=== PATIENT | female | born 1960 | race Caucasian/White ===

== ENCOUNTER 2020-01-12 06:51 | Emergency (ER) | payer MEDICARE, OTHER ==
[~2020-01-12] VITALS: Ht 160 cm; Wt 54.0 kg
--- OUTSIDE RECORDS SUMMARY | ~2020-01-12 | XMS | Encounter Summary ---
Demographics + + + | Address | [address] | | | [place] [address] | + + + | Home Phone | | + + + | Preferred Language | Unknown | + + + | Marital Status | | + + + | Sabianism Affiliation | Unknown | + + + | Race | Unknown | + + + | Ethnic Group | Unknown | + + + Author + + + | Author | [facility] | | | and [place] | + + + | Organization | [facility] | | | and [place] | + + + | Address | Unknown | + + + | Phone | Unavailable | + + + Support + + +---------+ + | Name | Relationship | Address | Phone | + + +---------+ + | Amor Sánchez | ECON | Unknown | | + + +---------+ + Care Team Providers + +------+ + | Care Operations Supervisor Chemical Cleaning Name | Role | Phone | + +------+ + | Bethany Donato | PCP | | + +------+ + Reason for Visit + +--------+ + | Reason | Onset | Comments | | | Date | | + +--------+ + | Imaging Only | 01/01/ | | | | 2016 | | + +--------+ + Encounter Details +--------+ + + + + | Date | Type | Department | Care Team | Description | +--------+ + + + + | 01/01/ | Telephone | [facility] | Anjum Carter, | Imaging Only | | 2017 | | NEUROSURGERY [address] | DO [address] | | | | | [address] | [address] [place], [place] | | | | | [place], [place] | [address] | | | | | [address] | | | | | | [phone] | | | +--------+ + + + + Social History + + + +--------+ + | Tobacco Use | Types | Packs/Day | Years | Date | | | | | Used | | + + + +--------+ + | Former Smoker | Cigarettes | | 4 | Quit: 08/16/2014 | + + + +--------+ + + +---+---+---+ | Smokeless Tobacco: | | | | | Never Used | | | | + +---+---+---+ + + +---------+ + | Alcohol Use | Drinks/Week | oz/Week | Comments | + + +---------+ + | Yes | 0 Standard drinks | 0.0 | RARE | | | or equivalent | | | + + +---------+ + + + + | Sex Assigned at | Date Recorded | | | | + + + | Not on file | | + + + documented as of this encounter Functional Status + + + + | Functional Status | Response | Date of Assessment | + + + + | Are you deaf or do you have serious | No | 06/25/2016 | | difficulty hearing? | | | + + + + | Are you blind or do you have serious | No | 06/25/2016 | | difficulty seeing, even when wearing | | | | glasses? | | | + + + + | Do you have serious difficulty walking or | No | 06/25/2016 | | climbing stairs? (5 years old or older) | | | + + + + | Do you have difficulty dressing or bathing? | No | 06/25/2016 | | (5 years old or older) | | | + + + + | Because of a physical, mental, or emotional | No | 06/25/2016 | | condition, do you have difficulty doing | | | | errands alone such as visiting a doctor's | | | | office or shopping? [15 years old or | | | | older)] | | | + + + + + + + + | Cognitive Status | Response | Date of Assessment | + + + + | Because of a physical, mental, or emotional | No | 06/25/2016 | | condition, do you have serious difficulty | | | | concentrating, remembering, or making | | | | decisions? (5 years old or older) | | | + + + + documented as of this encounter Miscellaneous Notes Telephone Encounter - Albarado, Sangeetha S, Telephone Information Clerk - 01/20/2017 4:05 PM PDTLetter benz s been mailed to patient to remind her to complete her 6 month post-op xray. elephone Encounter - Sangeetha Albarado Medical Assistant - 01/04/2017 2:50 PM PDTCalled patient and unable to sylvester ve voicemail due to no voicemail box set up yet. elephone Encounter - Gerardo Leary Medical Assis tananne - 01/01/2017 1:07 PM PDTPatient was unable to answer phone call, her voicemail has not been set up. I was unable to leave a message to let her know to get her 6m PO x-rays comple maegan. Will route order to [place] elephone Encounter - Gerardo Leary Medical Assistant - 2016 1:06 PM PDT----- Message from Aubrie Chappell MA sent at 09/28/2016 11:05 PDT ----- Regarding: Emma KELLER Remind patient to complete 6 month PO XR for review documen maegan in this encounter Plan of Treatment Not on filedocumented as of this encounter Visit Diagnoses Not on filedocumented in this encounter"
--- OUTSIDE RECORDS SUMMARY | ~2020-01-12 | XMS | Encounter Summary ---
Demographics + + + | Address | [address] | | | [place] [address] | + + + | Home Phone | | + + + | Preferred Language | Unknown | + + + | Marital Status | | + + + | Spiritism Affiliation | Unknown | + + + | Race | Unknown | + + + | Ethnic Group | Unknown | + + + Author + + + | Author | [facility] | | | and [place] | + + + | Organization | [facility] | | | and [place] | [...] Team Providers + +------+ + | Care Pulverizer Name | Role | Phone | + +------+ + | Bethany Donato | PCP | | + +------+ + Reason for Visit +--------+--------+ + | Reason | Onset | Comments | | | Date | | +--------+--------+ + | Other | 07/15/ | | | | 2017 | | +--------+--------+ + Encounter Details +--------+ + + + + | Date | Type | Department | Care Team | Description | +--------+ + + + + | 07/15/ | Telephone | [facility] | Todd Montanez, | Other | | 2016 | | NEUR[address]UR[address]ERY [address] | PA-C [address] | | | | [address] | [address] [place] | | | | | [place], [place] | [place] [address] | | | | | [address] | [phone] | | | | | [phone] | | | +--------+ + + + [...] this encounter Miscellaneous Notes Telephone Encounter - Todd Montanez PA - 07/22/2016 2:03 PM Stevo. i will look at [facility] and let her know. Thanks. 2: 04 PM PSTTelephone Encounter - Viktoriya Leal Cert MA - 07/22/2016 10:52 AM PSTI called and spoke with Yovany about the Gabapentin. She feels that taking 300mg TID is helping. She only has two pills let and would like a refill sent to her pharmacy. I attached this Rx. Please approve/deny I did also request her MRI and XR be pushed from [facility] to [facility]. Please review and advise. Her next visit is on 07/28/16. Thank you VIKTORIYA LEAL elephone EncounViktoriya Mora Cert MA - 07/21/2016 11:53 AM PSTVM left for Yovany requesting a call back to discuss Gabapentin with her. VIKTORIYA LEAL elephone Todd Reyna PA - 07/20/2016 2:58 PM PSTGreat. Thanks. All I can say is keep tryi ng a couple times a day and record when attempts are made. elephone Aixa - Viktoriya Lael Cert MA - 017 8:12 AM PSTVM left again today for Yovany. Requested a call back FYI - patient has not returned any of my calls and has not been able to be reached elephone EncounViktoriya Mora Cert MA - 07/17/2016 9:57 AM PSTMRI and XR scheduled for 07/20/16 at [facility] checking in at 245pm with 3pm. VM left for Yovany and Amor on both numbers requesting a call back CARLEY. VIKTORIYA LEAL elephone Viktoriya Abraham Cert MA - 07/15/2016 3:07 PM PSTVm left for Yovany requesting a call back VIKTORIYA LEAL elephone Viktoriya Abraham Cert MA - 07/15/2016 3:07 PM PST----- Message from JOCELINE Knott sent at 07/15/2016 10:43 PST ----- I ordered a plain x-ray today that was not discussed during her visit so please call and le t her know about this. Also I ordered a MRI that I that I would like tone urgently. Hopefull y by Wednesday. She can have her back x-rays done at the same time. Lastly, I did not get a vik nce to discuss this with her, but please tell her I called the pharmacy while she was here a nd verified that the Neurontin (gabapentin) I put her on IS THE MEDICATION SHE HAD TAKEN BEF ORE. I started her on the same dose as she was on before and it is very likely that this anthony l be an effective dose. By Wednesday, if her pain is not tolerable level she can increase her Neurontin to 2 tablets which would be 600 mg TID. If she does this, please have her call ou r office so that we know she is taking 600 mg 3 times a day. documented in this encounter Plan of Treatment Not on filedocumented as of this encounter Visit Diagnoses Not on filedocumented in this encounter"
--- OUTSIDE RECORDS SUMMARY | ~2020-01-12 | XMS | Encounter Summary ---
Demographics + + + | Address | [address] | | | [place] [address] | + + + | Home Phone | | + + + | Preferred Language | Unknown | + + + | Marital Status | | + + + | Temple Affiliation | Unknown | + + + | Race | Unknown | + + + | Ethnic Group | Unknown | + + + Author + + + | Author | [facility] | | | and [place] | + + + | Organization | [facility] | | | and [place] | [...] Team Providers + +------+ + | Care Business Machine Mechanic Name | Role | Phone | + +------+ + PCP | Unavailable | + +------+ + Encounter Details +--------+ + + + + | Date | Type | Department | Care Team | Description | +--------+ + + + + | 11/07/ | Hospital | [facility] | | | | 1991 | Encounter | [facility] | | | | | | CENTER [address] | | | | | | [place] | | | | | | [address] | | | | | | [phone] | | | +--------+ + + + + Social History + +-------+ +--------+------+ | Tobacco Use | Types | Packs/Day | Years | Date | | | | | Used | | + +-------+ +--------+------+ | Never Assessed | | | | | + +-------+ +--------+------+ + + + | Sex Assigned at | Date Recorded | | | | + + + | Not on file | | + + + documented as of this encounter Plan of Treatment Not on filedocumented as of this encounter Visit Diagnoses Not on filedocumented in this encounter"
--- OUTSIDE RECORDS SUMMARY | ~2020-01-12 | XMS | Encounter Summary ---
Demographics + + + | Address | [address] | | | [place] [address] | + + + | Home Phone | | + + + | Preferred Language | Unknown | + + + | Marital Status | | + + + | Orthodox Affiliation | Unknown | + + + | Race | Unknown | + + + | Ethnic Group | Unknown | + + + Author + + + | Author | [facility] | | | and [place] | + + + | Organization | [facility] | | | and [place] | [...] Team Providers + +------+ + | Care Community Development Technician Name | Role | Phone | + +------+ + PCP | Unavailable | + +------+ + Encounter Details +--------+ + + + + | Date | Type | Department | Care Team | Description | +--------+ + + + + | 11/03/ | Hospital | [facility] | | | | 1993 | Encounter | [facility] EM[facility] | | | | | | CENTER [address] | | | | | | [place] | | | | | | [address] | | | | | | [phone] | | | +--------+ + + + [...]
--- OUTSIDE RECORDS SUMMARY | ~2020-01-12 | XMS | Encounter Summary ---
Demographics + + + | Address | [address] | | | [place] [address] | + + + | Home Phone | | + + + | Preferred Language | Unknown | + + + | Marital Status | | + + + | Hoahaoism Affiliation | Unknown | + + + | Race | Unknown | + + + | Ethnic Group | Unknown | + + + Author + + + | Author | [facility] | | | and [place] | + + + | Organization | [facility] | | | and [place] [...] Team Providers + +------+ + | Care Freight Coordinator Name | Role | Phone | + +------+ + PCP | Unavailable | + +------+ + Encounter Details +--------+ + + + + | Date | Type | Department | Care Team | Description | +--------+ + + + + | 02/17/ | Hospital | [facility] | | | | 1994 | Encounter | MED CTR EMERGENCY | | | | | | [place] [address] | | | | | | [place] | | | | | | [address] | | | | | | [phone] | | | +--------+ + + + [...]
--- OUTSIDE RECORDS SUMMARY | ~2020-01-12 | XMS | Encounter Summary ---
Demographics + + + | Address | [address] | | | [place] [address] | + + + | Home Phone | | + + + | Preferred Language | Unknown | + + + | Marital Status | | + + + | Druze Affiliation | Unknown | + + + | Race | Unknown | + + + | Ethnic Group | Unknown | + + + Author + + + | Author | [facility] | | | and [place] | + + + | Organization | [facility] | | | and [place] [...] Team Providers + +------+ + | Care Um Specialist Name | Role | Phone | + +------+ + | Bethany Donato | PCP | | + +------+ + Reason for Visit Auth/Cert +--------+--------+ + + + + | Status | Reason | Specialty | Diagnoses / | Referred By | Referred To | | | | | Procedures | Contact | Contact | +--------+--------+ + + + + | | | | Diagnoses | | | | | | | Scoliosis, | | | | | | | unspecified | | | | | | | scoliosis | | | | | | | type, | | | | | | | unspecified | | | | | | | spinal | | | | | | | region | | | | | | | Scoliosis, | | | | | | | unspecified | | | | | | | scoliosis | | | | | | | type, | | | | | | | unspecified | | | | | | | spinal | | | | | | | region | | | | | | | [M41.9] | | | | | | | Procedures | | | | | | | FL | | | | | | | ARTHRODESIS | | | | | | | POSTERIOR/PO | | | | | | | STEROLATERAL | | | | | | | LUMBAR | | | | | | | FUSION | | | | | | | LUMBAR W/ | | | | | | | LATERAL | | | | | | | APPROACH | | | | | | | (XLIF) | | | +--------+--------+ + + + + Encounter Details +--------+ + + + + | Date | Type | Department | Care Team | Description | +--------+ + + + + | 06/23/ | Anesthesia | [facility] | Chas Cruz | | | 2016 | Event | [facility] | MD Kavya [address] | | | | | [address] | [address] [place] | | | | | [place] | [address] | | | | | [address] | | | | | | [phone] | | | | | | | Nabeel Mireles, | | | | | | [address] | | | | | | [place], [place] | | | | | | [address] | | | | | | | | +--------+ + + + + Anesthesia Record + + + + + | Procedure Name | Responsible | Anesthesia Start | Anesthesia Stop Time | | | Anesthesiologist | Time | | + + + + + | L2-3, L3-4, L4-5 | Chas Cruz, | 06/23/16 1308 | 06/23/16 1708 | | Lateral Anterior | MD | | | | Interbody Fusion | | | | | (Right Spine Lumbar) | | | | + + + + + +----+---+ + + | Da | T | Event | Comment | | te | i | | | | | m | | | | | e | | | +----+---+ + + | 12 | 1 | | | | /2 | 2 | | | | 0/ | 4 | | | | 20 | 8 | | | | 16 | | | | +----+---+ + + | | 1 | An Checkout | Pre-use anesthesia machine/equipment checkout. | | | 2 | | | | | 4 | | | | | 8 | | | +----+---+ + + | | 1 | Antibiotic | | | | 3 | Given | | | | 0 | | | | | 6 | | | +----+---+ + + | | 1 | An Start | Versed 2 mg IV in SDS 16, then to OR 2 with sedated patient. | | | 3 | | Reassessment prior to anesthesia induction/procedure. | | | 0 | | | | | 8 | | | +----+---+ + + | | 1 | an efrem now | In room 2 with sedated patient | | | 3 | | | | | 1 | | | | | 1 | | | +----+---+ + + | | 1 | Preoxygenat | | | | 3 | ed | | | | 1 | | | | | 4 | | | +----+---+ + + | | 1 | An | | | | 3 | Induction | | | | 1 | | | | | 8 | | | +----+---+ + + | | 1 | An | | | | 3 | Intubation | | | | 1 | | | | | 8 | | | +----+---+ + + | | 1 | AN Bite | | | | 3 | Block | | | | 1 | | | | | 8 | | | +----+---+ + + | | 1 | First | | | | 3 | Inc/Proc St | | | | 3 | | | | | 8 | | | +----+---+ + + | | 1 | [place] | | | | 3 | 43-degrees | | | | 3 | | | | | 8 | | | +----+---+ + + | | 1 | an efrem now | T Anthony, Relief | | | 5 | | | | | 0 | | | | | 7 | | | +----+---+ + + | | 1 | Quick Note | CT scan | | | 5 | | | | | 1 | | | | | 3 | | | +----+---+ + + | | 1 | an efrem now | Supine | | | 6 | | | | | 5 | | | | | 7 | | | +----+---+ + + | | 1 | AN No | TOF 4/4 with sustained tetanus. | | | 7 | Residual | | | | 0 | NMB | | | | 0 | | | +----+---+ + + | | 1 | Oropharynx | | | | 7 | Suctioned | | | | 0 | | | | | 0 | | | +----+---+ + + | | 1 | Extubated | | | | 7 | Deep | | | | 0 | | | | | 1 | | | +----+---+ + + | | 1 | an efrem now | PACU | | | 7 | | | | | 0 | | | | | 3 | | | +----+---+ + + | | 1 | An Stop | Patient handed off to recovery nurse. | | | 0 | | | | | 8 | | | +----+---+ + + +------+ | Meds | +------+ + + + | Name | Total | + + + | midazolam | 2 mg | + + + | lidocaine 2% (PF) | 60 mg | + + + | dexamethasone | 10 mg | + + + | ondansetron | 4 mg | + + + | HYDROmorphone | 2 mg | + + + | dexmedetomidine (PRECEDEX) 4 | 100 mcg | | mcg/mL in sodium chloride 0.9% | | | 100 mL infusion | | + + + | magnesium sulfate | 2 g | + + + | propofol | 150 mg | + + + | succinylcholine | 60 mg | + + + | ceFAZolin (ANCEF, KEFZOL) 2 g in | 2 g | | sodium chloride 0.9% 50 mL IVPB | | + + + | ketamine | 100 mg | + + + | morphine | 5 mg | + + + | lactated ringers (LR) infusion | 1,500 mL | + + + + + | Name | + + | N2O Flow Rate (L/Min) | + + | O2 Flow Rate (L/Min) | + + | Insp O2 | + + | Exp SEV | + + | Air Flow Rate (L/Min) | + + + + | No blood administrations on file. | + + +--------+ + + + | Type | Details | Placement | Removal | +--------+ + + + | Periph | 06/23/16; (present on arrival to | 06/23/16 0000 by | 06/25/16 1300 by | | eral | PACU); Left; Wrist; short term | Yefri Madrid RN | Michel Woodall RN | | IV | use; 06/25/16; 1300 | | | +--------+ + + + | Airway | Placement Date: 06/23/16; | 06/23/16 1318 by | 06/23/16 1701 by | | | Placement Time: 1318; Mask | Nabeel Mireles, | Chas Cruz, | | | Ventilation: EZ; Airway Grade: | MD | MD | | | 2a; External Maneuvers: CP; | | | | | Successful Technique: Mac; | | | | | Laryngoscope Blade Size: 3; | | | | | Airway Type: endotracheal, oral, | | | | | cuffed, fenestrated, disposable; | | | | | Size: 6.5; Position: Right; | | | | | Airway Tube Secured At: 21; Tube | | | | | Reference Point: teeth, secure | | | | | and patent; Trauma: none; Other | | | | | Equipment: stylette; Placement | | | | | Check: breath sounds equal | | | | | bilaterally, bilateral chest | | | | | rise, exhaled CO2 detection | | | | | device; Removal Date: 06/23/16; | | | | | Removal Time: 1701 | | | +--------+ + + + | Urethr | 06/23/16; 1330; indicated due to | 06/23/16 1330 by | 06/23/16 1700 by | | al | specific surgical procedure; All | Neno Trinh RN | Zara Hyde, | | Cathet | elements; All elements; All | | RN | | er | elements; indwelling double lumen | | | | | catheter; latex; 14; None; 1; | | | | | 10; 10; other (see comments) | | | | | (anesthesia); drainage bag to | | | | | dependent drainage; 06/23/16; | | | | | 1700 | | | +--------+ + + + | Read | 06/23/16; 1357; Right; flank; | 06/23/16 1357 by | 06/25/16 1300 by | | only - | healing within expectations; | Neno Trinh RN | Michel Woodall RN | | | 06/25/16; 1300 | | | | Incisi | | | | | on | | | | +--------+ + + + | Read | 06/23/16; 1620; back; healing | 06/23/16 1620 by | 06/25/16 1300 by | | only - | within expectations; 06/25/16; | Deborah Donato RN | Michel Woodall RN | | | 1300 | | | | Incisi | | | | | on | | | | +--------+ + + + | Drain/ | 06/23/16; 1643; lumbar spine; | 06/23/16 1643 by | 06/25/16 1306 by | | Device | collapsible closed device; 10f; | Deborah Donato RN | Michel Woodall RN | | Site | short term use; 06/25/16; 1306 | | | +--------+ + + + documented in this encounter Social History + + + +--------+ + [...] + + documented as of this encounter OR Notes Anesthesia Postprocedure Evaluation - Chas Cruz MD - 06/23/2016 5:20 PM PSTForm atting of this note might be different from the original. ANESTHESIA POSTANESTHESIA EVALUATION Yovany Jackson 55 y.o. female 1960 [id number] Procedure(s) L2-3, L3-4, L4-5 Lateral Anterior Interbody Fusion (Right Spine Lumbar) Cooperates? Sleeping Mental Status Sleeping - responds to stimulus Respiratory Satisfactory - Airway patent (self maintained). Cardiovascular Satisfactory Blood pressure and heart rate acceptable Temperature Satisfactory Pain Satisfactory N/V Control Satisfactory Hydration Satisfactory No signs of dehydration Complications None apparent Filed Vitals: 06/23/16 1704 06/23/16 1705 06/23/16 1710 BP: 142/70 145/72 142/70 Pulse: 73 73 78 Temp: 36.2 C (97.2 F) Resp: 13 15 15 SpO2: 97% 98% 94% Electronically signed by Chas Cruz MD 06/23/2016 17:20 [facility] nesthesia Prepro cedure Evaluation - Nabeel Mireles MD - 06/22/2016 8:10 PM PST ANESTHESIA PREANESTHESIA EVALUATION Yovany Jackson 55 y.o. female 1960 [id number] Procedure(s): L2-3, L3-4, L4-5 Lateral Anterior Interbody Fusion (N/A ) Medical history, anesthesia, medications, allergy, NPO status verified histories reviewed. Labs reviewed. Review of Systems / Med History Anesthesia History No anesthesia complications. Cardiovascular (-) congenital heart disease, pulmonary hypertension (-) valvular disease , Exercise maryan ance <4 METS Pulmonary Negative except where noted below. 20 pk year, quit 2014. (+) smoking history(-) asthma, COPD Neurology (+) scoliosis, back pain Psychology Negative except where noted below. (-) substance abuse, developmental delays Renal Negative except where noted below. Gastrointestinal/Hepatic Negative except where noted below. (+) hepatitis: type C Endocrine Negative except where noted below. Other Negative except where noted below. (+) arthritis Cancer Negative except where noted below. Physical Exam Airway MP II, TM >3 FB, Mouth opening >2 FB. Neck: full ROM, extends >30 degrees. Jaw protrus ion normal. Dental Grossly normal except where noted below.; (+) Age appropriate dentition. CV Rhythm regular. Rate Normal. (-) murmur, carotid bruit, peripheral edema, JVD and weak pulses. Pulm Clear to auscultation bilaterally. (-) wheezing, rhonchi, decreased breath sounds, rales and stridor. Neuro Grossly normal. Anesthesia Plan ASA 2 Type: General. Induction: Intravenous. Potential problems: None anticipated. Monitors: Standard ASA monitors. Consent statement:Anesthetic plan, alternatives, risks and benefits discussed with patient and family. Risks discussed included (but were not limited to): dental injury, pain, sore throat, infec tion, voice injury, muscle aches, nausea, respiratory events, . Consenting person understands and agrees to proceed. PARQ. Risks and benefits of general anesthetic discussed with patient and available family member s. They agree to proceed, answered all questions.. Electronically Signed by: Nabeel Mireles MD [facility] date/time: 06/23/2016 12:47 documented in this encounter Plan of Treatment Not on filedocumented as of this encounter Visit Diagnoses Not on filedocumented in this encounter Administered Medications + +---------+ +------+------+------+ | Medication Order | MAR | Action | Dose | Rate | Site | | | Action | Date | | | | + +---------+ +------+------+------+ | ceFAZolin (ANCEF, KEFZOL) 2 g | New Bag | 06/23/20 | 2 g | | | | in sodium chloride 0.9% 50 mL | | 16 1:06 | | | | | IVPB 2 g, Intravenous, | | PM PST | | | | | Administer over 30 Minutes, Prior | | | | | | | to Incision, Starting Wed | | | | | | | 06/23/16 at 1022, For 1 dose, | | | | | | | Administer within 1 hour of | | | | | | | surgical incision., Pre-op, | | | | | | | Indications: Surgical Prophylaxis | | | | | | + +---------+ +------+------+------+ +---+---+ | | | +---+---+ + +-------+ +-------+---+---+ | dexamethasone (DECADRON) 10 | Given | 06/23/20 | 10 mg | | | | mg/mL injection Intravenous, | | 16 1:18 | | | | | PRN, Starting Wed06/23/16 at | | PM PST | | | | | 1318, Anesthesia Intra-op | | | | | | + +-------+ +-------+---+---+ +---+---+ | | | +---+---+ + +---------+ +--------+ +---+ | dexmedetomidine (PRECEDEX) 4 | New Bag | 06/23/20 | 100 | 25 mL/hr | | | mcg/mL in sodium chloride 0.9% | | 16 1:20 | mcg/hr | | | | 100 mL infusion 400 mcg, | | PM PST | | | | | CONTINUOUS PRN, Starting Tue | | | | | | | 06/23/16 at 1320, Anesthesia | | | | | | | Intra-op | | | | | | + +---------+ +--------+ +---+ +---+---+ | | | +---+---+ + +-------+ +--------+---+---+ | HYDROmorphone (DILAUDID) 2 | Given | 06/23/20 | 0.5 mg | | | | mg/mL injection PRN, Pain, | | 16 2:08 | | | | | Starting 06/23/16 at 1317, | | PM PST | | | | | Anesthesia Intra-op | | | | | | + +-------+ +--------+---+---+ +-------+ +--------+---+---+ | Given | 06/23/20 | 0.5 mg | | | | | 16 1:45 | | | | | | PM PST | | | | +-------+ +--------+---+---+ | Given | 06/23/20 | 1 mg | | | | | 16 1:17 | | | | | | PM PST | | | | +-------+ +--------+---+---+ +---+---+ | | | +---+---+ + +-------+ +-------+---+---+ | ketamine 50 mg/mL injection | Given | 06/23/20 | 50 mg | | | | PRN, Starting 06/23/16 at | | 16 1:35 | | | | | 1332, Anesthesia Intra-op | | PM PST | | | | + +-------+ +-------+---+---+ +-------+ +-------+---+---+ | Given | 20 | 50 mg | | | | | 16 1:32 | | | | | | PM PST | | | | +-------+ +-------+---+---+ +---+---+ | | | +---+---+ + +---------+ +---+---+---+ | lactated ringers (LR) infusion | New Bag | 06/23/20 | | | | | at 10-100 mL/hr, Intravenous, | | 16 2:35 | | | | | CONTINUOUS, Starting Wed06/23/16 | | PM PST | | | | | at 1045, TKO., Pre-op | | | | | | + +---------+ +---+---+---+ +---------+ +---+---+---+ | New Bag | 06/23/20 | | | | | | 16 11:51 | | | | | | AM PST | | | | +---------+ +---+---+---+ +---+---+ | | | +---+---+ + +-------+ +-------+---+---+ | lidocaine (PF) 2% injection | Given | 06/23/20 | 60 mg | | | | PRN, Starting Wed06/23/16 at | | 16 1:18 | | | | | 1318, Anesthesia Intra-op | | PM PST | | | | + +-------+ +-------+---+---+ +---+---+ | | | +---+---+ + +---------+ +--------+---------+---+ | magnesium sulfate 500 mg/mL | New Bag | 06/23/20 | 2 g/hr | 4 mL/hr | | | injection CONTINUOUS PRN, | | 16 1:20 | | | | | Starting Wed06/23/16 at 1320, | | PM PST | | | | | Anesthesia Intra-op | | | | | | + +---------+ +--------+---------+---+ +---+---+ | | | +---+---+ + +-------+ +------+---+---+ | midazolam (VERSED) 1 mg/mL | Given | 06/23/20 | 2 mg | | | | injection Intravenous, PRN, | | 16 1:08 | | | | | Anxiety, Starting Wed06/23/16 at | | PM PST | | | | | 1308, Anesthesia Intra-op | | | | | | + +-------+ +------+---+---+ +---+---+ | | | +---+---+ + +-------+ +------+---+---+ | morphine 10 mg/mL injection | Given | 06/23/20 | 1 mg | | | | Intravenous, PRN, Pain, Starting | | 16 4:55 | | | | | 06/23/16 at 1619, Anesthesia | | PM PST | | | | | Intra-op | | | | | | + +-------+ +------+---+---+ +-------+ +------+---+---+ | Given | 06/23/20 | 2 mg | | | | | 16 4:29 | | | | | | PM PST | | | | +-------+ +------+---+---+ | Given | 06/23/20 | 2 mg | | | | | 16 4:19 | | | | | | PM PST | | | | +-------+ +------+---+---+ +---+---+ | | | +---+---+ + +-------+ +------+---+---+ | ondansetron (ZOFRAN) injection | Given | 06/23/20 | 4 mg | | | | PRN, Nausea, Vomiting, Starting | | 16 1:18 | | | | | 06/23/16 at 1318, Anesthesia | | PM PST | | | | | Intra-op | | | | | | + +-------+ +------+---+---+ +---+---+ | | | +---+---+ + +-------+ +--------+---+---+ | propofol (DIPRIVAN) injection | Given | 06/23/20 | 150 mg | | | | Intravenous, PRN, Starting Tue | | 16 1:18 | | | | | 06/23/16 at 1318, Anesthesia | | PM PST | | | | | Intra-op | | | | | | + +-------+ +--------+---+---+ +---+---+ | | | +---+---+ + +-------+ +-------+---+---+ | succinylcholine (ANECTINE) | Given | 06/23/20 | 60 mg | | | | injection Intravenous, PRN, | | 16 1:18 | | | | | Starting 06/23/16 at 1318, | | PM PST | | | | | Anesthesia Intra-op | | | | | | + +-------+ +-------+---+---+ +---+---+ | | | +---+---+ documented in this encounter"
--- OUTSIDE RECORDS SUMMARY | ~2020-01-12 | XMS | Encounter Summary ---
Demographics + + + | Address | [address] | | | [place] [address] | + + + | Home Phone | | + + + | Preferred Language | Unknown | + + + | Marital Status | | + + + | Evangelical Affiliation | Unknown | + + + | Race | Unknown | + + + | Ethnic Group | Unknown | + + + Author + + + | Author | [facility] | | | and [place] | + + + | Organization | [facility] | | | and [...] Team Providers + +------+ + | Care Packer Insulation Name | Role | Phone | + +------+ + | Bethany Donato | PCP | | + +------+ + Encounter Details +--------+ + + + + | Date | Type | Department | Care Team | Description | +--------+ + + + + | 06/15/ | Hospital | [facility] | Anjum Carter, | History of | | 2016 | Encounter | MED [facility] X[facility] [address] | DO [address] | participation in | | | | Leticia Gonzalez | [address] | smoking cessation | | | | [place] [address] | [address] | counseling; | | | | [phone] | | Continuous leakage | | | | | Jn Valadez MD | of urine; | | | | | [address] [place] [address] | Radiculopathy, | | | | | [place], [place] | lumbar region; | | | | | [address] | History of hepatitis | | | | | | C; Arthritis; | | | | | | Vaginal wall | | | | | | prolapse; Post | | | | | | hysterectomy | | | | | | menopause; | | | | | | Pharyngitis, | | | | | | unspecified | | | | | | etiology; Carpal | | | | | | tunnel syndrome of | | | | | | right wrist; Chronic | | | | | | low back pain | | | | | | without sciatica, | | | | | | unspecified back | | | | | | pain laterality; | | | | | | Lumbar disc | | | | | | narrowing; Frequent | | | | | | UTI; Blue dome cyst, | | | | | | unspecified | | | | | | laterality; | | | | | | Extremity cyanosis; | | | | | | Cardiac murmur | +--------+ + + + + Social [...] + + documented as of this encounter Medications at Time of Discharge + + + +---------+ + + | Medication | Sig | Dispensed | Refills | Start | End Date | | | | | | Date | | + + + +---------+ + + | diazePAM (VALIUM) | Take 1 tablet by | 90 | 0 | 06/25/20 | | | 5 mg tablet | mouth every 6 hours | tablet | | 16 | 7 | | | as needed. | | | | | + + + +---------+ + + | | Take 1-2 tablets by | 120 | 0 | 06/25/20 | | | HYDROcodone-acetamin | mouth every 4 hours | tablet | | 16 | 7 | | ophen (NORCO) 10-325 | as needed for Pain. | | | | | | mg per tablet | | | | | | + + + +---------+ + + | lactulose 10 g/15 | Take 30 mLs by mouth | 240 mL | 2 | 06/25/20 | | | mL solution | 2 times daily. For | | | 16 | 7 | | | constipation | | | | | + + + +---------+ + + | ondansetron | Take 1 tablet by | 24 | 0 | 06/25/20 | | | (ZOFRAN ODT) 4 mg | mouth every 8 hours | tablet | | 16 | 6 | | disintegrating | as needed for Nausea | | | | | | tablet | for up to 7 days. | | | | | + + + +---------+ + + documented as of this encounter Plan of Treatment Not on filedocumented as of this encounter Procedures + +--------+ + + + | Procedure Name | Priori | Date/Time | Associated Diagnosis | Comments | | | ty | | | | + +--------+ + + + | XR CHEST PA AND | Routin | 06/15/2016 | History of | Results for this | | LATERAL | e | 1:56 PM | participation in | procedure are in the | | | | PST | smoking cessation | results section. | | | | | counseling | | | | | | Continuous leakage | | | | | | of urine | | | | | | Radiculopathy, | | | | | | lumbar region | | | | | | History of hepatitis | | | | | | C Arthritis | | | | | | Vaginal wall | | | | | | prolapse Post | | | | | | hysterectomy | | | | | | menopause | | | | | | Pharyngitis, | | | | | | unspecified etiology | | | | | | Carpal tunnel | | | | | | syndrome of right | | | | | | wrist Chronic low | | | | | | back pain without | | | | | | sciatica, | | | | | | unspecified back | | | | | | pain laterality | | | | | | Lumbar disc | | | | | | narrowing Frequent | | | | | | UTI Blue dome cyst, | | | | | | unspecified | | | | | | laterality | | | | | | Extremity cyanosis | | | | | | Cardiac murmur | | + +--------+ + + + documented in this encounter Results XR Chest PA and Lateral (06/15/2016 1:56 PM PST) + + | Specimen | + + | | + + + + + | Narrative | Performed At | + + + | XR CHEST PA AND LATERAL 06/15/2016 1:56 PM HISTORY: PRE | [facility] | | OPERATIVE EXAM. COMPARISON: None. Findings: Heart size is | [facility] | | within normal limits. Aorta is normal. Mediastinum is unremarkable. | [facility] | | Central pulmonary vasculature is normal. The bilateral lungs are | - IMAGING | | clear with no evidence for pleural effusion or pneumothorax. There is | | | slight left curvature of the thoracic spine. IMPRESSION - No | | | acute findings. Dictated and Signed by: Frederic Burton MD | | | Electronically signed: 06/15/2016 2:55 PM | | + + + + + | Procedure Note | + + | Melo, Rad Results In - 06/15/2016 2:58 PM PST XR CHEST PA AND LATERAL 06/15/2016 1:56 | | PMHISTORY: PRE OPERATIVE EXAM.COMPARISON: None.Findings:Heart size is within normal | | limits. Aorta is normal. Mediastinum isunremarkable. Central pulmonary vasculature is | | normal. The bilateral lungs areclear with no evidence for pleural effusion or | | pneumothorax. There is slightleft curvature of the thoracic spine.IMPRESSION -No acute | | findings.Dictated and Signed by: Frederic Burton MD Electronically signed: 06/15/2016 2:55 | | PM | |Heart size is within normal limits. Aorta is normal. Mediastinum is | |unremarkable. Central pulmonary vasculature is normal. The bilateral lungs are | |clear with no evidence for pleural effusion or pneumothorax. There is slight | |left curvature of the thoracic spine. | | | |IMPRESSION - | |No acute findings. | | | |Dictated and Signed by: Frederic Burton MD | | Electronically signed: 06/15/2016 2:55 PM | + + + + + + + | Performing | Address | City/State/Zipcode | Phone Number | | Organization | | | | + + + + + | [facility] | [address] | [place] | [phone] | | [facility] | | [address] | | | - IMAGING | | | | + + + + + documented in this encounter Visit Diagnoses + + | Diagnosis | + + | History of participation in smoking cessation counseling | + + | Continuous leakage of urine Continuous leakage | + + | Radiculopathy, lumbar region Thoracic or lumbosacral neuritis or radiculitis, | | unspecified | + + | History of hepatitis C Personal history of other infectious and parasitic disease | + + | Arthritis Arthropathy, unspecified, site unspecified | + + | Vaginal wall prolapse Unspecified prolapse of vaginal hong | + + | Post hysterectomy menopause Symptomatic states associated with artificial menopause | + + | Pharyngitis, unspecified etiology | + + | Carpal tunnel syndrome of right wrist Carpal tunnel syndrome | + + | Chronic low back pain without sciatica, unspecified back pain laterality | + + | Lumbar disc narrowing Degeneration of lumbar or lumbosacral intervertebral disc | + + | Frequent UTI Urinary tract infection, site not specified | + + | Blue dome cyst, unspecified laterality | + + | Extremity cyanosis Other peripheral vascular disease | + + | Cardiac murmur Undiagnosed cardiac murmurs | + + documented in this encounter"
--- OUTSIDE RECORDS SUMMARY | ~2020-01-12 | XMS | Encounter Summary ---
Demographics + + + | Address | [address] | | | [place] [address] | + + + | Home Phone | | + + + | Preferred Language | Unknown | + + + | Marital Status | | + + + | Taoism Affiliation | Unknown | + + + | Race | Unknown | + + + | Ethnic Group | Unknown | + + + Author + + + | Author | [facility] | | | and [place] | + + + | Organization | [facility] | | | and [...] Team Providers + +------+ + | Care Apparatus Operator Name | Role | Phone | + +------+ + | Bethany Donato | PCP | | + +------+ + Encounter Details +--------+ + + + + | Date | Type | Department | Care Team | Description | +--------+ + + + + | 10/20/ | Orders Only | [facility] [place] | Anjum Carter, | Acute midline back | | 2016 | | NEUROSURGERY [address] | DO [address] | pain, unspecified | | | | [address] | [address] [place] | location (Primary | | | | [place] | [address] | Dx) | | | | [address] | | | | | | [phone] | | | +--------+ + + + [...] Not on filedocumented as of this encounter Results XR Lumbar Spine 4 + Vw (12/06/2015 7:45 AM PDT) + + | Specimen | + + | | + + + + + | Narrative | Performed At | + + + | FOUR VIEWS LUMBAR SPINE 12/06/2015 7:45 AM CLINICAL HISTORY: Back | [facility] | | pain COMPARISON: LUMBAR MRI AND RADIOGRAPHS NOVEMBER AND OCTOBER 2014 | [facility] | | FINDINGS: Five non rib-bearing, lumbar type vertebrae are visible. An | MEDICAL [facility]ENTER | | AP view and lateral views in neutral, flexed and extended positions | - IMAGING | | are provided. Rightward lumbar curvature centered at L1-2 persists | | | along with mild reversal of the lumbar lordosis. Lumbar vertebral | | | height is maintained, without evident fracture or obvious | | | spondylolysis. Moderate disc space narrowing and vertebral | | | spondylosis persist at L3-4, with lesser degenerative changes again | | | evident at L2-3 and L4-5. There is lower lumbar facet hypertrophy. | | | Mild retrolisthesis is again visible at L3-4 and L4-5, and persists | | | with flexion and extension. The sacroiliac joints and imaged | | | sacrum, bony pelvis and lower ribs are unremarkable. Soft tissues | | | are unremarkable. IMPRESSION - 1. LUMBAR DEXTROSCOLIOSIS, | | | REVERSAL OF THE LUMBAR LORDOSIS AND MULTILEVEL DEGENERATIVE DISC | | | DISEASE, SPONDYLOSIS AND MILD RETROLISTHESIS DESCRIBED. | | | Dictated and Signed by: Sudeep Christensen MD Electronically signed: | | | 12/06/2015 8:10 AM | | + + + + + | Procedure Note | + + | Melo, Rad Results In - 12/06/2015 8:13 AM PDT FOUR VIEWS LUMBAR SPINE 12/06/2015 7:45 | | AMCLINICAL HISTORY: Back painCOMPARISON: LUMBAR MRI AND RADIOGRAPHS NOVEMBER AND OCTOBER | | 2015FINDINGS: Five non rib-bearing, lumbar type vertebrae are visible. An AP viewand | | lateral views in neutral, flexed and extended positions are provided. Rightward lumbar | | curvature centered at L1-2 persists along with mild reversal ofthe lumbar lordosis. | | Lumbar vertebral height is maintained, without evidentfracture or obvious spondylolysis. | | Moderate disc space narrowing and vertebralspondylosis persist at L3-4, with lesser | | degenerative changes again evident atL2-3 and L4-5. There is lower lumbar facet | | hypertrophy. Mild retrolisthesis isagain visible at L3-4 and L4-5, and persists with | | flexion and extension. Thesacroiliac joints and imaged sacrum, bony pelvis and lower | | ribs areunremarkable. Soft tissues are unremarkable.IMPRESSION -1. LUMBAR | | DEXTROSCOLIOSIS, REVERSAL OF THE LUMBAR LORDOSIS AND MULTILEVELDEGENERATIVE DISC | | DISEASE, SPONDYLOSIS AND MILD RETROLISTHESIS DESCRIBED.Dictated and Signed by: Sudeep | | MD Fermin Electronically signed: 12/06/2015 8:10 AM | |sacroiliac joints and imaged sacrum, bony pelvis and lower ribs are | |unremarkable. Soft tissues are unremarkable. | | | |IMPRESSION - | | | |1. LUMBAR DEXTROSCOLIOSIS, REVERSAL OF THE LUMBAR LORDOSIS AND MULTILEVEL | |DEGENERATIVE DISC DISEASE, SPONDYLOSIS AND MILD RETROLISTHESIS DESCRIBED. | | | |Dictated and Signed by: Sudeep Christensen MD | | Electronically signed: 12/06/2015 8:10 AM | + + + + + + + | Performing | Address | City/State/Zipcode | Phone Number | | Organization | | | | + + + + + | [facility] | [address] | [place] | [phone] | | [facility] | | [address] | | | - IMAGING | | | | + + + + + documented in this encounter Visit Diagnoses + + | Diagnosis | + + | Acute midline back pain, unspecified location - Primary | + + documented in this encounter"
--- OUTSIDE RECORDS SUMMARY | ~2020-01-12 | XMS | Encounter Summary ---
Demographics + + + | Address | [address] | | | [place] [address] | + + + | Home Phone | | + + + | Preferred Language | Unknown | + + + | Marital Status | | + + + | Pentecostal Affiliation | Unknown | + + + | Race | Unknown | + + + | Ethnic Group | Unknown | + + + Author + + + | Author | [facility] | | | and [place] | + + + | Organization | [facility] | | | and [place] | [...] Team Providers + +------+ + | Care Hand Silvering Supervisor Name | Role | Phone | + +------+ + PCP | Unavailable | + +------+ + Encounter Details +--------+ + + + + | Date | Type | Department | Care Team | Description | +--------+ + + + + | 01/20/ | Hospital | [facility] | | | | 1991 | Encounter | [facility] | | | | | CENTER [address] | | | | | | [place] | | | | | | [address] | | | | | | [phone] | | | +--------+ + + + [...]
--- OUTSIDE RECORDS SUMMARY | ~2020-01-12 | XMS | Encounter Summary ---
Demographics + + + | Address | [address] | | | [place] [address] | + + + | Home Phone | | + + + | Preferred Language | Unknown | + + + | Marital Status | | + + + | Faith Affiliation | Unknown | + + + | Race | Unknown | + + + | Ethnic Group | Unknown | + + + Author + + + | Author | [facility] | | | and [place] | + + + | Organization | [facility] | | | and [...] Team Providers + +------+ + | Care Health Careers Instructor Name | Role | Phone | + +------+ + | Bethany Donato | PCP | | + +------+ + Reason for Visit +--------+--------+ + | Reason | Onset | Comments | | | Date | | +--------+--------+ + | Other | 07/22/ | | | | 2017 | | +--------+--------+ + Encounter Details +--------+ + + + + | Date | Type | Department | Care Team | Description | +--------+ + + + + | 07/22/ | Telephone | [facility] [place] | Anjum Carter, | Other | | 2017 | | NEUROSURGERY [address] | DO [address] | | | | | [address] | [address] [place], [place] | | | | | [place], [place] | [address] | | | | | [address] | | | | | | [phone] | | | +--------+ + + + [...] this encounter Miscellaneous Notes Telephone Encounter - Viktoriya Leal Cert MA - 07/24/2016 12:13 PM PSTI relayed this inform ation to Yovany. She reports feeling much better and is happy her imaging looks good [place] VIKTORIYA LEAL elephone Anjum Kinney DO - 07/24/2016 10:22 AM PSTI've reviewed the imaging with Todd. The a fartun he is talking about would not cause the type of pain she's describing. So we should give it more time and see how she does. I'm happy to see her back to discuss. Thanks. elephone Viktoriya Kaur Cert MA - 07/24/2016 8:37 AM PSTDr. Carter, Please also review the imaging and advise how to proceed Thank you VIKTORIYA LEAL eleTodd Moreno PA - 07/22/2016 2:07 PM PSTI am glad the neurontin and steroids are helping. I reviewed her x-rays and they look great. I also reviewed her MRI and feel overall it all looks good. My only area of concern is at L3-L4 on the right (slice 3 & 4 of 17). Sancho tients whole leg hurt so it is difficult to match this to a dermatone but does appear as tho ugh it could affect the traversing L4 nerve on the right and this does correlate with the si de that is hurting her. eleViktoriya Muller Cert MA - 07/22/2016 11:27 AM PSTI called and advise mac Pedroza that we will be calling her with results as soon as they are available. I did a dvise she is not okay to drive at this time. I let her know she cannot drive while taking m edications prescribed by our office. KAYLEE LEAL elephone Encounte r - Carmel Guaman - 07/22/2016 11:10 AM PSTPatient called in asking if we have receive d any imaging results back and is also wanting to know if she is in the clear to drive again ? Please advise docume nted in this encounter Plan of Treatment Not on filedocumented as of this encounter Visit Diagnoses Not on filedocumented in this encounter"
--- OUTSIDE RECORDS SUMMARY | ~2020-01-12 | XMS | Encounter Summary ---
Demographics + + + | Address | [address] | | | [place] [address] | + + + | Home Phone | | + + + | Preferred Language | Unknown | + + + | Marital Status | | + + + | Episcopalian Affiliation | Unknown | + + + | Race | Unknown | + + + | Ethnic Group | Unknown | + + + Author + + + | Author | [facility] | | | and [place] | + + + | Organization | [facility] | | | and [place] [...] Team Providers + +------+ + | Care Educational Therapist Name | Role | Phone | + +------+ + | Pcp, Prov Inactive | PCP | | + +------+ + Encounter Details +--------+ + + + + | Date | Type | Department | Care Team | Description | +--------+ + + + + | 02/05/ | Orders Only | [facility] | Provider, | | | 2018 | | SYSTEM GENERIC OP | [address] | | | | | [address]VERSION [address] | [place] | | | | | [address] [place], [place] | [place] [address] | | | | | [address] | | | | | | [phone] | | | +--------+ + + + + Social History + + + +--------+ + | Tobacco Use | Types | Packs/Day | Years | Date | | | | | Used | | + + + +--------+ + | Unknown If Ever | Cigarettes | | 4 | Quit: 08/16/2014 | | Smoked | | | | | + + + +--------+ + + [...]
--- OUTSIDE RECORDS SUMMARY | ~2020-01-12 | XMS | Encounter Summary ---
Demographics + + + | Address | [address] | | | [place] [address] | + + + | Home Phone | | + + + | Preferred Language | Unknown | + + + | Marital Status | | + + + | Oriental Orthodox Affiliation | Unknown | + + + | Race | Unknown | + + + | Ethnic Group | Unknown | + + + Author + + + | Author | [facility] | | | and [place] | + + + | Organization | [facility] | | | and [place] | [...] Team Providers + +------+ + | Care Milk Pasteurizer Name | Role | Phone | + +------+ + PCP | Unavailable | + +------+ + Encounter Details +--------+ + + + + | Date | Type | Department | Care Team | Description | +--------+ + + + + | 12/18/ | Hospital | [facility] | Conversion | Thoracic or | | 2014 | Encounter | [facility]ICAL CENTER XRAY | Transaction, | lumbosacral neuritis | | | | [address] | Provider Unknown | or radiculitis, | | | | [place], [place] | | unspecified | | | | [address] | (Fax) | | | | | [phone] | | | +--------+ + + + [...] | + +--------+ + + + | [place] EPIDURAL STEROID | Routin | 12/18/2014 | | Results for this | | INJ LUMBAR SACRAL | e | 10:10 AM | | procedure are in the | | INTERLAMINAR | | PDT | | results section. | + +--------+ + + + documented in this encounter Results FL LULU Lumbar Sacral Interlaminar (12/18/2014 10:10 AM PDT) + + | Specimen | + + | | + + + + + | Impressions | Performed At | + + + | 1. Successful epidural steroid and anesthetic injection at the | | | L4-L5 level through a left-sided intralaminar approach. 2. Pain | | | scale changed from 5/10 preprocedure to 0/10 post procedure. | | | | | + + + + + + | Narrative | Performed At | + + + | [facility] X[facility] EPIDURAL INJECTION LUMBAR 12/18/2014 9:46 AM | | | HISTORY: 53 years. Female. Moderate to severe L4-L5 lumbar | | | degenerative disc disease with chronic low back pain and lower | | | extremity radiculopathy. Fluoroscopically guided lumbar epidural | | | steroid injection at the L4-L5 level is requested by Dr. Fernandez, | | | orthopedic surgeon in [facility]. TECHNIQUE: Prior to | | | beginning the procedure, I obtained written informed consent and I | | | marked the patient's skin on the side where the procedure was to be | | | performed. A timeout was performed. Preprocedure pain scale was | | | 5/10. The patient was placed in the prone oblique position with | | | the left hip slightly elevated. The skin site over the left L4-5 | | | interlaminar notch was selected and marked. The skin was then | | | prepped and draped in the usual sterile fashion and anesthetized | | | with 1% lidocaine buffered with sodium bicarbonate. Subsequently, a | | | 20-gauge 4-inch Tuohy needle from the epidural tray was advanced to | | | the margin of the ligamentum flavum using fluoroscopic guidance. The | | | hub was then removed and the hub connected to tubing and a syringe | | | containing sterile preservative free normal saline. Gentle injection | | | pressure on the syringe hub was used while advancing the needle. | | | When loss of resistance to injection was felt, indicating entry into | | | the epidural space, the tubing was disconnected and replaced with a | | | syringe containing Isovue M-200 contrast for intrathecal use. | | | Approximately 3 mL of contrast were injected under fluoroscopic | | | visualization. This showed visualization of the epidural space, | | | including the left-sided L4 and L5 exiting nerve roots, confirming | | | needle tip location. I then injected a mixture consisting of 3 mL of | | | 1% lidocaine and 2 mL of dexamethasone sodium phosphate (4 mg per | | | mL). The needle was then removed. The patient tolerated the | | | procedure well. Postprocedure pain scale was 0/10. FLUOROSCOPY | | | TIME: 0.5 minutes. FLUOROSCOPY DOSE: 32.7 mGy. | | | COMPLICATIONS: None. | | + + + + + | Procedure Note | + + | Melo, Rad Conversion - 02/17/2019 9:00 AM [facility] EPIDURAL INJECTION | | LUMBAR12/18/2014 9:46 AM HISTORY:53 years. Female. Moderate to severe L4-L5 lumbar | | degenerative disc disease with chronic low back pain and lower extremity radiculopathy. | | Fluoroscopically guided lumbar epidural steroid injection at the L4-L5 level is | | requested by Dr. Fernandez, orthopedic surgeon in [facility]. TECHNIQUE: Prior to | | beginning the procedure, I obtained written informed consent and I marked the patient's | | skin on the side where the procedure was to be performed. A timeout was performed. | | Preprocedure pain scale was 5/10. The patient was placed in the prone oblique position | | with the left hip slightly elevated. The skin site over the left L4-5 interlaminar | | notch was selected and marked. The skin was then prepped and draped in the usual | | sterile fashion and anesthetized with 1% lidocaine buffered with sodium bicarbonate. | | Subsequently, a 20-gauge 4-inch Tuohy needle from the epidural tray was advanced to the | | margin of the ligamentum flavum using fluoroscopic guidance. The hub was then removed | | and the hub connected to tubing and a syringe containing sterile preservative free | | normal saline. Gentle injection pressure on the syringe hub was used while advancing | | the needle. When loss of resistance to injection was felt, indicating entry into the | | epidural space, the tubing was disconnected and replaced with a syringe containing | | Isovue M-200 contrast for intrathecal use. Approximately 3 mL of contrast were injected | | under fluoroscopic visualization. This showed visualization of the epidural space, | | including the left-sided L4 and L5 exiting nerve roots, confirming needle tip location. | | I then injected a mixture consisting of 3 mL of 1% lidocaine and 2 mL of dexamethasone | | sodium phosphate (4 mg per mL). The needle was then removed. The patient tolerated the | | procedure well. Postprocedure pain scale was 0/10. FLUOROSCOPY TIME:0.5 minutes. | | FLUOROSCOPY DOSE:32.7 mGy. COMPLICATIONS:None. IMPRESSION: 1. Successful epidural | | steroid and anesthetic injection at the L4-L5 level through a left-sided intralaminar | | approach.2. Pain scale changed from 5/10 preprocedure to 0/10 post procedure. | | | |COMPLICATIONS: | |None. | | | |IMPRESSION: | |1. Successful epidural steroid and anesthetic injection at the L4-L5 level through a left- sided intralaminar approach. | |2. Pain scale changed from 5/10 preprocedure to 0/10 post procedure. | | | | | + + documented in this encounter Visit Diagnoses + + | Diagnosis | + + | Thoracic or lumbosacral neuritis or radiculitis, unspecified | + + documented in this encounter"
--- OUTSIDE RECORDS SUMMARY | ~2020-01-12 | XMS | Encounter Summary ---
Demographics + + + | Address | [address] | | | [place] [address] | + + + | Home Phone | | + + + | Preferred Language | Unknown | + + + | Marital Status | | + + + | Yazidi Affiliation | Unknown | + + + | Race | Unknown | + + + | Ethnic Group | Unknown | + + + Author + + + | Author | [facility] | | | and [place] | + + + | Organization | [facility] | | | and [place] [...] Team Providers + +------+ + | Care Flagsetter Name | Role | Phone | + +------+ + | Bethany Donato | PCP | | + +------+ + Encounter Details +--------+ + + + + | Date | Type | Department | Care Team | Description | +--------+ + + + + | 06/15/ | Preadmit | [facility] | Anjum Carter, | Pre-operative | | 2016 | Visit | [facility] | DO [address] | clearance (Primary | | | | CLINIC [address] | [place] | Dx); History of | | | | [place], [place] | [address] | participation in | | | | [address] | | smoking cessation | | | | | | counseling; | | | | | | Continuous leakage | | | | | | of urine; | | | | | | Radiculopathy, | | | | | | lumbar region; | | | | | | History [...] | + +--------+ + + + | ECG 12 LEAD | Routin | 06/15/2016 | History of | Results for this | | | e | 1:29 PM | participation in | procedure are [...] | + +--------+ + + + | CULTURE, MRSA | Routin | 06/15/2016 | Pre-operative | Results for this | | | e | 12:57 PM | clearance | procedure are in the | | | | PST | | results section. | + +--------+ + + + | PTT | Routin | 06/15/2016 | History of | Results for this | | | e | 12:57 PM | participation in | procedure are [...] | + +--------+ + + + | PROTIME INR | Routin | 06/15/2016 | History of | Results for this | | | e | 12:57 PM | participation in | procedure are [...] | + +--------+ + + + | CBC WITH | Routin | 06/15/2016 | History of | Results for this | | DIFFERENTIAL | e | 12:57 PM | participation in | procedure are [...] | + +--------+ + + + | BASIC METABOLIC | Routin | 06/15/2016 | History of | Results for this | | PANEL | e | 12:57 PM | participation in | procedure are [...] + + documented in this encounter Results ECG 12 lead (06/15/2016 1:29 PM PST) + + + + + + | Component | Value | Ref Range | Performed | Pathologist | | | | | At | Signature | + + + + + + | VENTRICULAR | 92 | BPM | [facility] | | | RATE EKG | | | | | + + + + + + | ATRIAL RATE | 92 | BPM | [facility] | | + + + + + + | P-R | 120 | ms | [facility] | | | INTERVAL | | | | | + + + + + + | QRS | 88 | ms | [facility] | | | DURATION | | | | | + + + + + + | Q-T | 358 | ms | [facility] | | | INTERVAL | | | | | + + + + + + | Q-T | 442 | ms | [facility] | | | INTERVAL | | | | | | (CORRECTED) | | | | | + + + + + + | P WAVE AXIS | 31 | degrees | [facility] | | + + + + + + | QRS AXIS | 23 | degrees | [facility] | | + + + + + + | T AXIS | 46 | degrees | [facility] | | + + + + + + | INTERPRETAT | Normal sinus | | [facility] | | | ION TEXT | rhythmNormal ECGNo | | | | | | previous ECGs | | | | | | availableConfirmed by | | | | | | AICHA LOWRY MD ([id number]) | | | | | | on 06/16/2016 8:22:52 AM | | | | | | | | | | + + + + + + + + | Specimen | + + | | + + + + + | Narrative | Performed At | + + + | | | + + + + +---------+ + + | Performing | Address | City/State/Zipcode | Phone Number | | Organization | | | | + +---------+ + + | [facility] | | | | + +---------+ + + Basic Metabolic Panel (06/15/2016 12:57 PM PST) + + + + + + | Component | Value | Ref Range | Performed | Pathologist | | | | | At | Signature | + + + + + + | Na | 143 | 136 - 149 | [facility] | | | | | mmol/L | [facility] | | | | | | [facility] | | | | | | CENTER - | | | | | | LABORATORY | | + + + + + + | K | 3.6 | 3.5 - 5.1 | [facility] | | | | | mmol/L | [facility] | | | | | | MEDICAL | | | | | | CENTER - | | | | | | LABORATORY | | + + + + + + | Cl | 105 | 98 - 109 mmol/L | [facility] | | | | | | [facility] | | | | | | MEDICAL | | | | | | CENTER - | | | | | | LABORATORY | | + + + + + + | CO2 | 28 | 24 - 31 mmol/L | [facility] | | | | | | [facility] | | | | | | MEDICAL | | | | | | CENTER - | | | | | | LABORATORY | | + + + + + + | Anion Gap | 10 | 3 - 16 mmol/L | [facility] | | | | | | [facility] | | | | | | [facility] | | | | | | CENTER - | | | | | | LABORATORY | | + + + + + + | Glucose | 80 | 70 - 109 mg/dL | [facility] | | | | | | [facility] | | | | | | [facility] | | | | | | CENTER - | | | | | | LABORATORY | | + + + + + + | BUN | 15 | 7 - 18 mg/dL | [facility] | | | | | | [facility] | | | | | | MEDICAL | | | | | | CENTER - | | | | | | LABORATORY | | + + + + + + | Creatinine | 0.97 | 0.60 - 1.30 | [facility] | | | | | mg/dL | [facility] | | | | | | MEDICAL | | | | | | CENTER - | | | | | | LABORATORY | | + + + + + + | eGFR if not | 59 (L)Comment: | >=60 | [facility] | | | | GLOMERULAR FILTRATION | mL/min/1.73m2 | [facility] | | | BULGARIAN | RATE,ESTIMATED | | MEDICAL | | | | mL/min/1.43h2Hkhn than | | CENTER - | | | | 60 Chronic kidney | | LABORATORY | | | | disease,if found over a | | | | | | 3-month period.Less than | | | | | | 15 Kidney failureFor | | | | | | | | | | | | Americans,multiply the | | | | | | calculated GFR by 1.21. | | | | | | | | | | + + + + + + | Calcium | 9.5 | 8.3 - 10.5 | [facility] | | | | | mg/dL | [facility] | | | | | | MEDICAL | | | | | | CENTER - | | | | | | LABORATORY | | + + + + + + | BUN/Creatin | 15.5 | | [facility] | | | ine Ratio | | | [facility] | | | | | | [facility]ICAL | | | | | | CENTER - | | | | | | LABORATORY | | + + + + + + + + | Specimen | + + | Blood | + + + + + + + | Performing | Address | City/State/Zipcode | Phone Number | | Organization | | | | + + + + + | [facility] | [address] | [place] | [phone] | | [facility] | | [address] | | | - LABORATORY | | | | + + + + + PTT (06/15/2016 12:57 PM PST) + +-------+ + + + | Component | Value | Ref Range | Performed | Pathologist | | | | | At | Signature | + +-------+ + + + | aPTT | 32 | 22 - 36 seconds | [facility] | | | | | | [facility] | | | | | | MEDICAL | | | | | | CENTER - | | | | | | LABORATORY | | + +-------+ + + + + + | Specimen | + + | Blood | + + + + + + + | Performing | Address | City/State/Zipcode | Phone Number | | Organization | | | | + + + + + | [facility] | [address] | [place] | [phone] | | [facility] | | [address] | | | - LABORATORY | | | | + + + + + Protime INR (06/15/2016 12:57 PM PST) + + + + + + | Component | Value | Ref Range | Performed | Pathologist | | | | | At | Signature | + + + + + + | Prothrombin | 13.7 | 11.3 - 13.9 | [facility] | | | Time | | seconds | [facility] | | | | | [facility] | | | | | | CENTER - | | | | | | LABORATORY | | + + + + + + | INR | 1.03Comment: Usual Oral | 0.90 - 1.10 | [facility] | | | | Anticoagulation Range: | | [facility] | | | | 2.0 - 3.0High | | MEDICAL | | | | Level Oral | | CENTER - | | | | Anticoagulation Range: | | LABORATORY | | | | 2.5 - 3.5 | | | | + + + + + + + + | Specimen | + + | Blood | + + + + + + + | Performing | Address | City/State/Zipcode | Phone Number | | Organization | | | | + + + + + | [facility] | [address] | [place] | [phone] | | [facility] | | [address] | | | - LABORATORY | | | | + + + + + CBC with Differential (06/15/2016 12:57 PM PST) + + + + + + | Component | Value | Ref Range | Performed | Pathologist | | | | | At | Signature | + + + + + + | White Blood | 7.4 | 4.0 - 11.0 K/uL | [facility] | | | Cells | | | [facility] | | | | | | [facility] | | | | | | CENTER - | | | | | | LABORATORY | | + + + + + + | Red Blood | 4.95 | 3.70 - 5.20 | [facility] | | | Cells | | M/uL | [facility] | | | | | | MEDICAL | | | | | | CENTER - | | | | | | LABORATORY | | + + + + + + | Hemoglobin | 13.5 | 11.5 - 16.0 | [facility] | | | | | g/dL | [facility] | | | | | | [facility] | | | | | | CENTER - | | | | | | LABORATORY | | + + + + + + | Hematocrit | 41.2 | 34.0 - 47.0 % | [facility] | | | | | | [facility] | | | | | | [facility]ICAL | | | | | | CENTER - | | | | | | LABORATORY | | + + + + + + | MCV | 83.2 | 83.0 - 101.0 fL | [facility] | | | | | | [facility] | | | | | | MEDICAL | | | | | | CENTER - | | | | | | LABORATORY | | + + + + + + | MCH | 27.2 (L) | 28.0 - 35.0 pg | [facility] | | | | | | [facility] | | | | | | MEDICAL | | | | | | CENTER - | | | | | | LABORATORY | | + + + + + + | MCHC | 32.7 | 32.0 - 36.0 | [facility] | | | | | g/dL | [facility] | | | | | | MEDICAL | | | | | | CENTER - | | | | | | LABORATORY | | + + + + + + | RDW-CV | 13.4 | <15.0 % | [facility] | | | | | | [facility] | | | | | | MEDICAL | | | | | | CENTER - | | | | | | LABORATORY | | + + + + + + | Platelet | 291 | 140 - 440 K/uL | [facility] | | | Count | | | [facility] | | | [facility] | | MEDICAL | | | | | | CENTER - | | | | | | LABORATORY | | + + + + + + | MPV | 7.1 | fL | [facility] | | | | | | [facility] | | | | | | MEDICAL | | | | | | CENTER - | | | | | | LABORATORY | | + + + + + + | % | 60.9 | 45.0 - 82.0 % | [facility] | | | Neutrophils | | | [facility] | | | | | | MEDICAL | | | | | | CENTER - | | | | | | LABORATORY | | + + + + + + | % | 30.1 | 20.0 - 45.0 % | [facility] | | | Lymphocytes | | | [facility] | | | | | | MEDICAL | | | | | | CENTER - | | | | | | LABORATORY | | + + + + + + | % Monocytes | 7.8 | 4.0 - 12.0 % | [facility] | | | | | | [facility] | | | | | | MEDICAL | | | | | | CENTER - | | | | | | LABORATORY | | + + + + + + | % | 0.8 | 0.0 - 5.0 % | [facility] | | | Eosinophils | | | [facility] | | | | | | MEDICAL | | | | | | CENTER - | | | | | | LABORATORY | | + + + + + + | % Basophils | 0.4 | 0.0 - 1.0 % | [facility] | | | | | | [facility] | | | | | | MEDICAL | | | | | | CENTER - | | | | | | LABORATORY | | + + + + + + | Absolute | 4.50 | 1.80 - 8.50 | [facility] | | | Neutrophils | | K/uL | [facility] | | | | | | MEDICAL | | | | | | CENTER - | | | | | | LABORATORY | | + + + + + + | Absolute | 2.20 | 0.60 - 3.20 | [facility] | | | Lymphocytes | | K/uL | [facility] | | | | | | MEDICAL | | | | | | CENTER - | | | | | | LABORATORY | | + + + + + + | Absolute | 0.60 | 0.00 - 1.00 | [facility] | | | Monocytes | | K/uL | [facility] | | | | | | MEDICAL | | | | | | CENTER - | | | | | | LABORATORY | | + + + + + + | Absolute | 0.10 | 0.00 - 0.40 | [facility] | | | Eosinophils | | K/uL | [facility] | | | | | | MEDICAL | | | | | | CENTER - | | | | | | LABORATORY | | + + + + + + | Absolute | 0.00 | 0.00 - 0.10 | [facility] | | | Basophils | | K/uL | [facility] | | | | | | MEDICAL | | | | | | CENTER - | | | | | | LABORATORY | | + + + + + + + + | Specimen | + + | Blood | + + + + + + + | Performing | Address | City/State/Zipcode | Phone Number | | Organization | | | | + + + + + | [facility] | [address] | [place] | [phone] | | [facility] | | [address] | | | - LABORATORY | | | | + + + + + Culture, MRSA (06/15/2016 12:57 PM PST) + + + + + + | Component | Value | Ref Range | Performed | Pathologist | | | | | At | Signature | + + + + + + | Culture | Negative for MRSA by | | [facility] | | | | chromogenic agar method | | [facility] | | | | | | MEDICAL | | | | | | CENTER - | | | | | | LABORATORY | | + + + + + + + + | Specimen | + + | Respiratory - | | Specimen from nasal | | sinus (specimen) | + + + + + + + | Performing | Address | City/State/Zipcode | Phone Number | | Organization | | | | + + + + + | [facility] | [address] | [place] | [phone] | | [facility] | | [address] | | | - LABORATORY | | | | + + + + + documented in this encounter Visit Diagnoses + + | Diagnosis | + + | Pre-operative clearance - Primary Preoperative examination, unspecified | + + | History of participation [...]
--- OUTSIDE RECORDS SUMMARY | ~2020-01-12 | XMS | Encounter Summary ---
Demographics + + + | Address | [address] | | | [place] [address] | + + + | Home Phone | | + + + | Preferred Language | Unknown | + + + | Marital Status | | + + + | Orthodox Affiliation | Unknown | + + + | Race | Unknown | + + + | Ethnic Group | Unknown | + + + Author + + + | Author | [facility] | | | and [place] | + + + | Organization | [facility] | | | and [...] Team Providers + +------+ + | Care Staffing Operations Manager Name | Role | Phone | + +------+ + | Bethany Donato | PCP | | + +------+ + Reason for Visit + +--------+ + | Reason | Onset | Comments | | | Date | | + +--------+ + | Imaging Only | 06/30/ | | | | 2016 | | + +--------+ + Encounter Details +--------+ + + + + | Date | Type | Department | Care Team | Description | +--------+ + + + + | 06/30/ | Telephone | [facility] | Anjum Carter, | Imaging Only | | 2017 | | NEUROSURGERY [address] | DO [address] | | | | | [address] | [address] [place], [place] | | | | | [place], [place] | [address] | | | | | [address] | | | | | | [phone] | | | +--------+ + + + [...] this encounter Miscellaneous Notes Telephone Encounter - Sangeetha Albarado, Powder Mill Operator - 06/30/2017 2:27 PM PSTLetter benz s been mailed to patient reminder her to complete xray. elephone Encounter - Bailee Rivera[facility] Secretary/Transcriptionist - 06/30/2017 1:29 PM PSTAttempted to reach out to patient's contact Amor Case that was listed on her registration, to try and contact Yovany. The patient's contac t did not answer the phone, and no voicemail was able to be left. elephone Encounter - Teddy Rivera, Powder Mill Operator - 06/30/2017 1:18 PM PSTAttempted to contact patient to inform he r that she is due for her one year post op Xr. The number was reportedly disconnected, so th e patient was not contacted and no voicemail was able to be left. documented in this encounter Plan of Treatment Not on filedocumented as of this encounter Visit Diagnoses Not on filedocumented in this encounter"
--- OUTSIDE RECORDS SUMMARY | ~2020-01-12 | XMS | Encounter Summary ---
Demographics + + + | Address | [address] | | | [place] [address] | + + + | Home Phone | | + + + | Preferred Language | Unknown | + + + | Marital Status | | + + + | Faith Affiliation | Unknown | + + + | Race | Unknown | + + + | Ethnic Group | Unknown | + + + Author + + + | Author | [facility] | | | and [place] | + + + | Organization | [facility] | | | and [place] [...] Team Providers + +------+ + | Care Insulation Worker Name | Role | Phone | + +------+ + PCP | Unavailable | + +------+ + Encounter Details +--------+ + + + + | Date | Type | Department | Care Team | Description | +--------+ + + + + | 09/18/ | Hospital | [facility] | | | | 1992 | Encounter | [facility] | | | | | | CENTER [address] | | | | | | [place] | | | | | | [address] | | | | | | [phone] | | | +--------+ + + + [...]
--- OUTSIDE RECORDS SUMMARY | ~2020-01-12 | XMS | Encounter Summary ---
Demographics + + + | Address | [address] | | | [place] [address] | + + + | Home Phone | | + + + | Preferred Language | Unknown | + + + | Marital Status | | + + + | Restoration Affiliation | Unknown | + + + | Race | Unknown | + + + | Ethnic Group | Unknown | + + + Author + + + | Author | [facility] | | | and [place] | + + + | Organization | [facility] | | | and [...] Team Providers + +------+ + | Care Water Mangle Tender Name | Role | Phone | + +------+ + PCP | Unavailable | + +------+ + Encounter Details +--------+ + + + + | Date | Type | Department | Care Team | Description | +--------+ + + + + | 12/09/ | Hospital | [facility] | | | | 2001 | Encounter | [facility] EM[facility] | | | | | | CENTER [address] | | | | | | [place] | | | | | | [address] | | | | | | [phone] | | | +--------+ + + + [...]
--- OUTSIDE RECORDS SUMMARY | ~2020-01-12 | XMS | Encounter Summary ---
Demographics + + + | Address | [address] | | | [place] [address] | + + + | Home Phone | | + + + | Preferred Language | Unknown | + + + | Marital Status | | + + + | Church Affiliation | Unknown | + + + | Race | Unknown | + + + | Ethnic Group | Unknown | + + + Author + + + | Author | [facility] | | | and [place] | + + + | Organization | [facility] | | | and [place] | [...] Team Providers + +------+ + | Care Belt Tender Name | Role | Phone | + +------+ + | Bethany Donato | PCP | | + +------+ + Reason for Visit + +--------+ + | Reason | Onset | Comments | | | Date | | + +--------+ + | Medication Refill | 07/08/ | | | | 2016 | | + +--------+ + Encounter Details +--------+ + + + + | Date | Type | Department | Care Team | Description | +--------+ + + + + | 07/08/ | Telephone | [facility] | Anjum Carter, | Medication Refill | | 2017 | | NEUROSUR[address] | DO [address] | | | | | [address] | [address] [place], [place] | | | | | [place], [place] | [id number] | | | | | [address] | | | | | | [phone] | | | +--------+ + + + [...] Encounter - Viktoriya Leal Cert MA - 07/08/2016 4:24 PM PSTRx's were given to ct renteria in the office today. She was scheduled to see Todd on 07/13/16 to discuss her pain lev els elephone Encdestiny ramirez - Cole Elaine PA-C - 07/08/2016 2:12 PM PSTI will provide a couple of days w orth of oxycodone to help with the flare of her pain. In addition we will try a tapering do se of steroids. I would like her to follow-up in our office early part of next [facility] progress P STTelephone Encounter - Viktoriya Leal Cert MA - 07/08/2016 1:54 PM PSTPatient is in office today for a staple removal and C/O her pain being out of control and says her pain medicati on is not working. She was taking [place] 10/325mg 2 PO every 3-4 hours because it wasn't wor zohaib. She says she didn't call our office about this because it was the holiday and didn't think we could help her. She did take a few Oxycodone's 5/325mg 2 PO from friend that did h elp a little bit. They did make her "slur her speech a little bit" but it did control her p ain better. She C/O pain being in her right leg, no back pain. She cannot describe her quyen n but says its "so horrible". She is not taking anything for nerve pain at this time. Can we give her something different for her pain today before she heads back to [place]? S/P L2-5 ALIF, Lateral approach on 06/23/2016. Please advise VIKTORIYA LEAL documented in this encounter Plan of Treatment Not on filedocumented as of this encounter Visit Diagnoses Not on filedocumented in this encounter
--- OUTSIDE RECORDS SUMMARY | ~2020-01-12 | XMS | Encounter Summary ---
Demographics + + + | Address | [address] | | | [place] [address] | + + + | Home Phone | | + + + | Preferred Language | Unknown | + + + | Marital Status | | + + + | Voodoo Affiliation | Unknown | + + + | Race | Unknown | + + + | Ethnic Group | Unknown | + + + Author + + + | Author | [facility] | | | and [place] | + + + | Organization | [facility] | | | and [place] [...] Team Providers + +------+ + | Care Mechanic Industrial Truck Name | Role | Phone | + +------+ + | Bethany Donato | PCP | | + +------+ + Encounter Details +--------+ + + + + | Date | Type | Department | Care Team | Description | +--------+ + + + + | 06/15/ | Hospital | [facility] | Anjum Carter, | | | 2016 | Encounter | [facility] CTR LAB[facility]ATORY | DO [address] | | | | | [address] | [address] | | | | | [place] | [address] | | | | | [address] | | | | | | [phone] | | | +--------+ + + + [...]
--- OUTSIDE RECORDS SUMMARY | ~2020-01-12 | XMS | Encounter Summary ---
Demographics + + + | Address | [address] | | | [place] [address] | + + + | Home Phone | | + + + | Preferred Language | Unknown | + + + | Marital Status | | + + + | Scientologist Affiliation | Unknown | + + + | Race | Unknown | + + + | Ethnic Group | Unknown | + + + Author + + + | Author | [facility] | | | and [place] | + + + | Organization | [facility] | | | and [place] [...] Team Providers + +------+ + | Care Finishing Room Operator Name | Role | Phone | + +------+ + | Bethany Donato | PCP | | + +------+ + Reason for Visit +--------+--------+ + | Reason | Onset | Comments | | | Date | | +--------+--------+ + | Other | 08/05/ | Driving questions | | | 2017 | | +--------+--------+ + Encounter Details +--------+ + + + + | Date | Type | Department | Care Team | Description | +--------+ + + + + | 08/05/ | Telephone | [facility] [place] | Anjum Carter, | Other (Driving | | 2017 | | NEUROSUR[address]ERY [address] | DO [address] | questions ) | | | | [address] | [address] [place], [place] | | | | | [place], [place] | [address] | | | | | [address] | | | | | | [phone] | | | +--------+ + + + [...] this encounter Miscellaneous Notes Telephone Encounter - Edna Leal Cert MA - 08/05/2016 9:21 AM Yovani called torres quinn wondering when she could start driving. She reports not taking anymore pain medications o r muscle relaxers. I let her know that as long as she infact is not taking these medication s, she can begin to drive. She had an L2-5 Fusion on 06/23/16. KAYLEE LEAL cumented in this encounter Plan of Treatment Not on filedocumented as of this encounter Visit Diagnoses Not on filedocumented in this encounter"
--- OUTSIDE RECORDS SUMMARY | ~2020-01-12 | XMS | Encounter Summary ---
Demographics + + + | Address | [address] | | | [place] [address] | + + + | Home Phone | | + + + | Preferred Language | Unknown | + + + | Marital Status | | + + + | Sabianist Affiliation | Unknown | + + + | Race | Unknown | + + + | Ethnic Group | Unknown | + + + Author + + + | Author | [facility] | | | and [place] | + + + | Organization | [facility] | | | and [place] [...] Team Providers + +------+ + | Care Ride Mechanic Name | Role | Phone | + +------+ + PCP | Unavailable | + +------+ + Encounter Details +--------+ + + + + | Date | Type | Department | Care Team | Description | +--------+ + + + + | 05/28/ | Hospital | [facility] | | | | 1990 | Encounter | MED CTR EMERGENCY | | | | | | CENTER [address] | | | | | | [place] | | | | | | [address] | | | | | | [phone] | | | +--------+ + + + [...]
--- OUTSIDE RECORDS SUMMARY | ~2020-01-12 | XMS | Encounter Summary ---
Demographics + + + | Address | [address] | | | [place] [address] | + + + | Home Phone | | + + + | Preferred Language | Unknown | + + + | Marital Status | | + + + | Anglican Affiliation | Unknown | + + + | Race | Unknown | + + + | Ethnic Group | Unknown | + + + Author + + + | Author | [facility] | | | and [place] | + + + | Organization | [facility] | | | and [place] [...] Team Providers + +------+ + | Care Sap Treasury Consultant Name | Role | Phone | + [...] | | | | | | | [place] | | | | | | | [...] +--------+--------+ + + + + Encounter Details +--------+---------+ + + + | Date | Type | Department | Care Team | Description | +--------+---------+ + + + | 06/23/ | Surgery | [facility] | Anjum Carter, | L2-3, L3-4, L4-5 | | 2016 | | [facility] | DO [address] | Lateral Anterior | | | | [address] | [address] | Interbody Fusion | | | | [place] | [id number] | | | | | [id number] | | | | | | [phone] | | | +--------+---------+ + + + Social History + + [...] + + documented as of this encounter Last Filed Vital Signs + + + + + | Vital Sign | Reading | Time Taken | Comments | + + + + + | Blood Pressure | 117/65 | 06/23/2016 10:00 AM | | | | | PST | | + + + + + | Pulse | 80 | 06/23/2016 10:00 AM | | | | | PST | | + + + + + | Temperature | 36 C (96.8 F) | 06/23/2016 10:00 AM | | | | | PST | | + + + + + | Respiratory Rate | 18 | 06/23/2016 10:00 AM | | | | | PST | | + + + + + | Oxygen Saturation | 99% | 06/23/2016 10:00 AM | | | | | PST | | + + + + + | Inhaled Oxygen | - | - | | | Concentration | | | | + + + + + | Weight | 52.2 kg (115 lb) | 06/23/2016 10:00 AM | | | | | PST | | + + + + + | Height | 160 cm (5' 3") | 06/23/2016 10:00 AM | | | | | PST | | + + + + + | Body Mass Index | 20.37 | 06/23/2016 10:00 AM | | | | | PST | | + + + + + documented in this encounter Functional Status + + + [...] + + documented as of this encounter Discharge Summaries Todd Montanez PA - 06/25/2016 8:56 AM PSTFormatting of this note might be different f rom the original. DISCHARGE SUMMARY Pt. Name/Age/: Yovany Jackson 55 y.o. 1960 Date of Admission: 06/23/2016 Date of Discharge: 06/25/2016 Admitting Physician: Anjum Carter DO PCP: Bethany Donato Discharging Physician: JOCELINE Tan Primary Discharge Dx: Scoliosis of lumbar spine Secondary Discharge Dx: Patient Active Problem List Diagnosis History of participation in smoking cessation counseling Continuous leakage of urine Radiculopathy, lumbar region History of hepatitis C Arthritis Vaginal wall prolapse Post hysterectomy menopause Pharyngitis Carpal tunnel syndrome of right wrist Low back pain Lumbar disc narrowing Frequent UTI Blue dome cyst (a component of fibrocystic breast disease) Extremity cyanosis Cardiac murmur H/O Hysterectomy Neurogenic claudication - Jun 2016 Scoliosis of lumbar spine Former smoker - Quit 2014 Reason for Admission (Brief): Ms. Jackson is a 55-year-old woman with low back pain, leg quyen n, and leg weakness. MRI and x-rays of the lumbar spine revealed scoliosis, spondylolisthesi s, spondylosis, and stenosis L2-L5. The patient tried and failed multiple conservative treat ment modalities to alleviate her symptoms. Given the patient's rapid symptomatic progression , she elected to proceed with the above named procedures. Hospital Course, including Complications: On the day of admission the patient was admitted to [facility] and underwent a L2-l5 fusion. Patient was transferred to PACU and then to the neurosurgical floor. In brief, the hospital stay was uncomplicated, the patient mobilized well with physical therapy and occup ational therapy. There were no cardiac issues, pulmonary issues, evidence of DVT or infecti on. Appropriate discharge plans were made in line with her progress and mobility and she was ultimately discharged to home. Medications Reconciled upon Discharge are: Discharge Medications New Medications Details diazePAM 5 mg tablet Take 1 tablet by mouth every 6 hours as needed. aka: VALIUM HYDROcodone-acetaminophen 10-325 mg per tablet Take 1-2 tablets by mouth every 4 hours as needed for Pain. aka: NORCO lactulose 10 g/15 mL solution Take 30 mLs by mouth 2 times daily. For constipation Condition on Discharge: Stable Disposition: Patient was discharged to Follow-Up Plans: Follow-up with: Dr. Carter's office in 4 weeks Follow-up with primary care physician as needed. Diet: Resume regular diet Activity: Continue to follow guidelines and precautions as previously discussed. Brace: home Electronically signed by: Todd Montanez, 06/25/2016 8:57 [facility] documented in this encounter Discharge Instructions Instructions Todd Montanez PA - 06/25/2016Discharge Instructions for Lumbar Fusion You had a lumbar fusion. During this procedure, your doctor locked together (fused) some of the bones in your spine. This limits the movement of these bones to help relieve your pain. Here s what you need to know about home care following a spinal fusion. Activity Arrange your household to keep the items you need within reach. Remove electrical cords, throw rugs, and anything else that may cause you to fall. Use a walkeror handrails until your balance, flexibility, and strength improve. And re member to ask for help from others when you need it. Free up your hands so that you can use them to keep balance. Use a ramonita pack, apron, or pockets to carry things. Be sure not to carry too much at once. Don t bend or twist at the waist, or raise your hands over your head for the first two weeks after your surgery. Don t lift anything heavier than 5 pounds for the first four weeks after surgery. Don t sit for more than30 to 45 minutes at a time. Take frequent short walks. They a re the rothman to your recovery. As your back feels better please gradually increase the distanc e you walk as discussed with your provider. Don t drive until your doctor says it s OK. And never drive while you are taking opi oid pain medication. Nap if you are tired, but don t stay in bed all day. Use chairs with arms. The arms make it easier for you to stand up and sit down. If you have not yet received instructions about physical therapy, ask your doctor about them. Incision care Check your incision daily for redness, tenderness, or drainage. Don t soak your wound in water (no hot tubs, bathtubs, swimming pools) until your doct or says it s OK. As long as you keep your incision dry you can shower as desired. After 5 days you may le t shower water run over the incision but do not submerse the incision under water until afte r you see your provider. Gently pat the incision dry. Don t rub it, or apply creams or lot ions. And if you feel unsteady while standing to shower, use a shower stool or chair. Other home care Use nonslip bath mats, grab bars, an elevated toilet seat, and a shower chair in your ba throom. Take your medication exactly as directed. Don t take nonsteroidal anti-inflammatory medications (NSAIDs), such as ibuprofen. The y may delay or prevent proper fusion of the spine. If you smoke, stop! This will be one of the most important things you can do to help you recover from surgery. Wear your back brace, if one was prescribed, as directed by your doctor. Follow-up Most patients will be seen approximately 4 weeks after surgery. Be sure to get your 1 mo nth post op x-rays prior to your 1 month post op appointment before your appointment. [phone] [employer]. [address] [place] [address]. All righ ts reserved. This information is not intended as a substitute for professional medical care. Always follow your healthcare professional's instructions. documented in this encounter Medications at Time of Discharge [...] + + documented as of this encounter Progress Notes Todd Montanez PA - 06/25/2016 8:47 AM PSTFormatting of this note might be different f rom the original. [facility] NEUROSURGERY PROGRESS NOTE Pt. Name/Age/: Yovany Jackson 55 y.o. 1960 Post operative day 2 SUBJECTIVE: Patient doing very well. She had a good night and slept well. Her painis well c ontrolled and she feels she is ready to go home. No other C./C. OBJECTIVE: Patient Vitals for the past 24 hrs: BP Temp Temp src Pulse Resp SpO2 06/25/16 0716 116/57 mmHg 36.4 C (97.5 F) Oral 76 16 98 % 06/25/16 0429 111/60 mmHg 36.7 C (98.1 F) Oral 83 16 98 % 06/24/16 2103 94/53 mmHg 36.8 C (98.2 F) Oral 80 18 97 % 06/24/16 1520 110/56 mmHg 36.4 C (97.6 F) Oral 78 18 - 06/24/16 1120 - - - 80 - 96 % I/O last 24 Hours: In: 678 [I.V.:678] Out: 2905 [Urine:2775; Other:130] Min/Max Temp past 24 hours:Temp Av.6 C (97.9 F) Min: 36.4 C (97.5 F) Max: 3 6.8 C (98.2 F) General: Alert, oriented, no acute distress Dressing: Clean/Dry/Intact Neurological: normal DRAIN OUTPUT: 20CCs LabsNo results found for this or any previous visit (from the past 24 hour(s)). ASSESSMENT:SP L2-L5 fusion Plan:Mobilize. DC drain. DC home. See DC summary. Electronically signed by: Todd Montanez, 06/25/2016 8:47 [facility] Todd Hernandez PA - 06/24/2016 7:34 AM PST [facility] NEUROSURGERY PROGRESS NOTE Pt. Name/Age/: Yovany Jackson 55 y.o. 1960 Post operative day 1 SUBJECTIVE: Patient doing well now but she had a rough night. There was quite a bit of quyen n and at times she appeared oversedated. She reports she is much better now. She has not bee n able to appreciate her legs being better yet since she has not been up and ambulating. Oth erwise she has no C/C. OBJECTIVE: Patient Vitals for the past 24 hrs: BP Temp Temp src Pulse Resp SpO2 Height Weight 06/24/16 0323 123/70 mmHg 35.6 C (96.1 F) Oral 63 16 97 % - - 06/23/16 2315 140/68 mmHg - - 68 16 100 % - - 06/23/16 2213 - - - 63 - 100 % - - 06/23/16 2150 140/71 mmHg - - 68 14 98 % - - 06/23/16 2056 123/64 mmHg - - 60 16 97 % - - 06/23/16 2030 - - - 68 - 100 % - - 06/23/16 1957 148/70 mmHg - - 62 14 98 % - - 06/23/16 1900 153/68 mmHg - - 58 14 99 % - - 06/23/16 1830 132/68 mmHg 36.2 C (97.2 F) Oral 62 14 98 % - - 06/23/16 1751 136/75 mmHg - - 67 13 99 % - - 06/23/16 1745 130/63 mmHg - - 79 19 99 % - - 06/23/16 1730 145/67 mmHg - - 74 14 99 % - - 06/23/16 1720 138/68 mmHg - - 80 15 90 % - - 06/23/16 1715 116/57 mmHg - - 80 14 94 % - - 06/23/16 1710 142/70 mmHg - - 78 15 94 % - - 06/23/16 1705 145/72 mmHg - - 73 15 98 % - - 06/23/16 1704 142/70 mmHg 36.2 C (97.2 F) Temporal 73 13 97 % - - 06/23/16 1000 117/65 mmHg 36 C (96.8 F) Temporal 80 18 99 % 1.6 m (5' 3") 52.164 kg (11 5 lb) I/O last 24 Hours: In: 3177 [P.O.:150; I.V.:2769; IV Piggyback:258] Out: 789 [Urine:500; Other:85; Blood:204] Min/Max Temp past 24 hours:Temp Av C (96.8 F) Min: 35.6 C (96.1 F) Max: 36. 2 C (97.2 F) General: Alert, oriented, no acute distress Dressing: Clean/Dry/Intact Neurological: normal DRAIN OUTPUT: 40 CCs Labs Recent Results (from the past 24 hour(s)) Type and Screen Result Value Ref Range ABO O Rh Type Positive Antibody Screen Negative ASSESSMENT:SP L2-L5 fusion Plan:Mobilize. Leave drain in. Likely DC home on Wednesday. Electronically signed by: Todd Montanez, 06/24/2016 7:34 [facility] documented in this encounter H&P Notes Anjum Carter, - 06/23/2016 12:18 PM PSTSURGICAL INTERIM HISTORY & PHYSICAL UPDATE Pt. Name/Age/: Yovany Jackson 55 y.o. 1960 Date of admission: 06/23/2016 The current H&P was reviewed. The patient was reexamined. Re-evaluation of the patient co nfirms the necessity for the scheduled procedure. No change has occurred in the patient s condition since the H&P was completed less than 30 days ago. VERIFICATION OF CONSENT (PARQ) The patient was counseled regarding the procedure, its indications, risks, potential compli cations and alternatives. Any questions were answered. Consent was obtained. Electronically signed by: Anjum Carter DO, 06/23/2016 12:[address] [facility] DreyerAnjum DO - 06/23/2016 12:18 PM PST Anjum Carter DO [address], [address] [place] [address] FAX: NEUROSURGERY HISTORY AND PHYSICAL EXAMINATION CHIEF COMPLAINT: Chief Complaint Patient presents with Back Pain lower back HISTORY OF PRESENT ILLNESS: The patient is a 55 y.o. female with the complaint of back sy mptoms that began many years ago. The patient describes insidious onset, but progression s marcelina slipping and falling on the ice in July of 2013. The symptoms have been rapidly wo rsening - so much so that she had to quit her job due to back and leg pain. She rates the pain as severe. The symptoms are frequent, daily. She describes the pain as aching and throbbing. The patient describes leg symptoms that occur on right side. The leg symptoms account for greater than or equal to 50% of her symptoms. The leg symptoms are intermittent and the s ymptoms travels from the [facility] over the top and side of her right leg. The patient also ann cribes right leg weakness. She can only walk about 1 block before having to sit and rest. The patient does not report any change in bowel or bladder function recently. Her symptoms improve with rest. Her symptoms worsen with standing, sitting, walking, running, kneeling, bending, twisting a nd light exertion. She has tried lifestyle modification, pain medication, rest, steroid injections. PAST MEDICAL HISTORY: Past Medical History Diagnosis Date History of participation in smoking cessation counseling Continuous leakage of urine Radiculopathy, lumbar region History of hepatitis C Arthritis Vaginal wall prolapse Post hysterectomy menopause Pharyngitis Carpal tunnel syndrome of right wrist Low back pain Lumbar disc narrowing Frequent UTI Blue dome cyst Extremity cyanosis (HCC) Cardiac murmur PAST SURGICAL HISTORY: Past Surgical History Procedure Laterality Date Hysterectomy 1989 Tubal ligation 1979 CURRENT MEDICATIONS: Current Outpatient Prescriptions Medication Sig Dispense Refill NAPROXEN PO Take by mouth. No current facility-administered medications for this visit. ALLERGIES: No Known Allergies SOCIAL HISTORY: The patient reports that she quit smoking about 18 months ago. Her smoking use included Ci garettes. She has never used smokeless tobacco. She reports that she drinks alcohol. She rep orts that she does not use illicit drugs. FAMILY HISTORY: Family History Problem Relation Age of Onset Heart disease Brother No Known Problems Father Cancer Mother No Known Problems Sister No Known Problems Child REVIEW OF SYSTEMS GENERALLY: No fever, no night sweats, no anemia, no fatigue, no recent profound weight ugalde ges. EYES: No eye problems, no use of corrective lenses, no eye injury, no double vision, no bli ndness. EARS, NOSE, AND THROAT: No changes in taste or smell, no hearing difficulty, no ringing in the ears, no ear drainage, no dizziness, no voice changes, no difficulty swallowing, no sign ificant snoring, no sleep apnea, no sinus problems, no major dental work. NEUROLOGICALLY: Please see the review of systems discussed above in the history of present illness. In addition, the patient has numbness/pain of legs, awake with numbness/pain, muscl e aching, pain in neck. PSYCHIATRIC: No depression, no sleep disorders, no anxiety, no bipolar disorder, no psychot ic episodes. CARDIOVASCULAR: No heart attacks, no heart murmur, no heart fluttering, no chest pain, no a nkle swelling. LUNG DISEASE: No shortness of breath, no cough, no tuberculosis, no bloody cough, no asthma , no emphysema/COPD. GASTROINTESTINAL: No bowel disease, no nausea or vomiting, no rectal bleeding, no constipat ion, no stool incontinence, no liver disease, no gallbladder disease, no abdominal pain, no ulcers. KIDNEY DISEASE: No urinary frequency, no painful or difficult urination, no incontinence. ENDOCRINE: No diabetes, no thyroid disease, no osteopenia or osteoporosis, no breast draina ge. SKIN: No breast lumps, no skin changes, no rashes, no itches. HEMATOLOGIC/LYMPHATIC: No enlarged lymph nodes, no easy or unusual bleeding, no personal hi story of cancer. RHEUMATOLOGIC: No joint arthritis, no rheumatoid arthritis. PHYSICAL EXAMINATION: Blood pressure 109/71, pulse 70, resp. rate 16, height 1.6 m (5' 3"), weight 51.71 kg (114 lb). Body mass index is 20.2 kg/(m^2). GENERAL: Yovany Jackson is in no acute distress with unlabored respirations. The patient does appear uncomfortable throughout the exam today. HEENT: HEAD/FACE: EYES: EARS: NASOPHARNYX: OROPHARNYX: Normocephalic and atraumatic. There are no areas of recent trauma. Normal sclerae without icterus. No drainage or tenderness. Clear without drainage. Clear without erythema. NECK (ANTERIOR): Supple and without palpable masses. CHEST: Clear to ausculation without crackles or wheeze. HEART: Regular rate and rhythm without murmurs. ABDOMEN: Soft, non-tender, non-distended, and without palpable masses. The patient is not obese. SPINE: There is no tenderness in the midline of the cervical or thoracic spine. There i s no major palpable deformity of the spine. The lumbar spine shows there is tenderness in the midline of the L2, L3, L4, L5 levels. T o palpation, there is signficant bilateral myofascial tenderness. EXTREMITIES: No cyanosis, clubbing, or edema. Distal pulses are palpable. NEUROLOGICAL EXAM: MENTAL STATUS: The patient is awake, alert, and oriented. She follows simple and complex commands. Her speech is fluent, she comprehends speech well, and she repeats well. She has no apparent deficits with short or long-term memory. CRANIAL NERVES: II: Acuity is intact. Dye are full to confrontation. III, IV, : The pupils are reactive. Extraocular movements are intact. No ptosis is noted. V: Facial sensation is intact and symmetric. VII: Facial movements are symmetric. VIII: Hearing is intact bilaterally. IX, X: The uvula and palate move appropriately. XI: Shrug is equal bilaterally. XII: Tongue protrusion is midline. MOTOR EXAM: (5 IS NORMAL) * Indicates pain limited MUSCLE/ MOVEMENT: RIGHT LEFT Deltoids 5 5 Biceps 5 5 Triceps 5 5 Wrist Flexion 5 5 Wrist Extension 5 5 Median Intrinsics 5 5 Ulnar Intrinsics 5 5 Shelver Strength 5 5 Hip Flexion 4 5 Hip Extension 4+ 5 Knee Flexion 4 5 Knee Extension 4 5 Dorsiflexion 4 5 Extensor Hallicus Longus 4 5 Plantarflexion 4+ 5 SENSORY EXAM: Sensory exam shows right L4 and L5-type dysesthesia. REFLEXES: (2 OR 2+ IS NORMAL) REFLEX: RIGHT LEFT BICEPS 2+ 2+ BRACHIORADIALIS 2+ 2+ TRICEPS 2+ 2+ PATELLAR 2+ 2+ ACHILLES 2+ 2+ BUSCH'S ABSENT ABSENT PLANTAR DOWNGOING DOWNGOING GAIT: Gait is antalgic. PERIPHERAL NERVE/MISC: Tinel is negative at the wrists and elbows bilaterally. Phalen is negative. Straight leg raise is positive bilaterally. Calin's test of the hips is negative bilaterally. RADIOGRAPHIC REVIEW: The patient's imaging was reviewed in detail with the patient today during the visit. The MRI of the lumbar spine from 11/14/14 demonstrates diffuse scoliosis and kyphosis. There is spondylolisthesis L3-4. There is severe lateral recess stenosis L3-4 and L4-5. Lumbar flexion and extension views show spondylolisthesis L3-4 and L4-5 with dynamic instab ility. There is scoliosis L2-5. ASSESSMENT: NEUROSURGICAL DIAGNOSES: Encounter Diagnoses Name Primary? Scoliosis of lumbar spine, unspecified scoliosis type Yes Spondylolisthesis of lumbar region Postural kyphosis of lumbar region Lumbar stenosis Lumbar radiculopathy Chronic midline low back pain with right-sided sciatica Neurogenic claudication GENERAL DIAGNOSES: Past Medical History Diagnosis Date History of participation in smoking cessation counseling Continuous leakage of urine Radiculopathy, lumbar region History of hepatitis C Arthritis Vaginal wall prolapse Post hysterectomy menopause Pharyngitis Carpal tunnel syndrome of right wrist Low back pain Lumbar disc narrowing Frequent UTI Blue dome cyst Extremity cyanosis (HCC) Cardiac murmur PLAN: Yovany Jackson presented today, and it was a pleasure seeing this patient and assessi ng her problems. The patient has scoliosis, kyphosis, and spondylolisthesis with severe st enosis L2-5. This is likely contributing to her back pain, leg pain, leg weakness, and catrachito ication. I had a lengthy discussion with the patient about her options for care including surgical a nd non-surgical options. She would like to proceed with XLIF L2-5. We discussed the risks, alternatives, and benefits to surgical intervention with Ms. Jackson in clinic. These risks included but were not limited to , stroke, heart attack, numb ness, weakness, paralysis, failure of fusion, failure of hardware, subsidence, adjacent segm ent degeneration, cerebrospinal fluid leak, bleeding, infection, injury to surrounding tissu es and organs, injury from positioning, injury to the nerves, difficulty with breathing, dif ficulty with swallowing, difficulty with voice change, and need for additional surgery. Surgical options were discussed and the technique to be employed was described in detail to her. All her questions were answered. We discussed that the goal of the surgery is to prevent progression of her disease, but it is not considered a cure. We also discussed that although some patients may obtain 100% sy mptom relief, it is realistic to anticipate that some symptoms will continue postoperatively despite a successful surgery. We also discussed that there is no guarantee that surgery will provide improvement in her c ondition, and indeed may even worsen the symptoms. We also discussed that in the course of the procedure the operative plan may be altered to include more, less, or different levels depending upon findings in order to provide her with the best possible outcome. I am prescribing a brace before surgery to improve her stability now to support her weak mu scles and to reduce pain by restricting mobility. For multiple (more than 1 level) fusions, I am also prescribing a bone growth stimulator po stoperatively. This is to improve the probability and rate of fusion. documented in this en counter Nursing Notes Yefri Madrid RN - 06/23/2016 5:47 PM PSTDenies pain, tingling, numbness in legsElectro nically signed by Yefri Madrid RN at 06/23/2016 5:48 PM PSTdocumented in this encounter Miscellaneous Notes Plan of Care - Michel Woodall RN - 06/25/2016 5:20 PM PSTProblem: Patient Care Overview (Adult) Goal: Care Team Goals & Evaluation PROBLEM-RELATED GOALS: 1. Pt s pain will be scored at 3 out of 10 by 06/25/06 2. Strength and sensation to lower extremities will return to pt s baseline or improve by 06/26/16 3. Pt will demonstrate lumbar precautions and ambulate with staff by 06/25/16 4. Pt will tolerate a general textured diet by 06/24/16 5. Pt will be free from s/s of infection through 06/28/16 6. Pt will have BM by 06/25/16 7. Pt will void within 6 hours of arriving to the floor on admission date. 8. Will maintain adequate oxygenation via oximetry with SpO2 > 92 by 06/26/16. 9. Will meet 75% of predicted incentive spirometer goal of 1999 by 06/26/16. 10. Pt will demonstrate safe modified indpt walking in room and halls with FWW by 06/28/16. STRATEGY TO ACHIEVE GOALS: 1. Assess pain q4h and PRN. Medicate PRN and re-evaluate pain 30-60 minutes after and re-me dicate PRN. Assist with repositioning for comfort. 2. Assess muscle strength and CMS q4h and PRN. Notify MD if abnormalities are found. 3. Teach lumbar precautions and brace management, cue and assist as needed. Encourage ambul ation to bathroom and in halls as appropriate. Use FWW and staff assist for safety. 4. Start pt on clear liquids when he arrives to the floor and advance to general texture as he tolerates. Medicate with anti-emetics PRN. 5. Assess dressing and vitals with temps q4h and PRN. Monitor lab work as ordered. Notify M D with concerns. 6. Assess bowel tones q shift and PRN. Encourage fluid intake and ambulation to help promot e BM. Monitor for bowel movements and if no BM by 06/25/16 use PRN bowel protocol. 7. Assist pt to BSC or bathroom as needed. If no void within 6 hours, bladder scan pt and brisa jade MD orders to assist empting the bladder. 8. Monitor saturations via oximetry every four and titrate to order as indicated. 9. Instruct patient in the use of Incentive Spirometry and/or deep breath and cough. 10. PT intervention and pt/family education and training. Outcome: Adequate for Discharge Date Met: 06/25/16 Goal Evaluation: 1. Pain was managed with two [facility] pills PRN at a time and a muscle relaxant. 2. Pt denies numbness, muscle strength to all extremities 5/. 3. Pt follows lumbar precautions well, able to apply Lumbar brace independently. B LSO whe n out of bed. 4. Pt has been tolerating a regular diet well. 5. No s/s of infection noted this morning, VSS, remains afebrile. Band aids to low posterio r back c/d/i. No drainage noted. CASSIDY drain was removed per MD orders. 6. Bowel medications were given, no BM today, Pt denies feeling constipated. Encouraged to drink fluids. Pt is not passing gas. 7. Voiding independently with out any difficulty. 8. Pt remains on room air this morning. No SOB reported. Pt will go home today. lan of Care - Natalio archer MallikaMUMTAZ Patel - 06/25/2016 11:08 AM PSTProblem: Patient Care Overview (Adult) Goal: Care Team Goals & Evaluation PROBLEM-RELATED GOALS: 1. Pt s pain will be scored at 3 out of 10 by 06/25/06 2. Strength and sensation to lower extremities will return to pt s baseline or improve by 06/26/16 3. Pt will demonstrate lumbar precautions and ambulate with staff by 06/25/16 4. Pt will tolerate a general textured diet by 06/24/16 5. Pt will be free from s/s of infection through 06/28/16 6. Pt will have BM by 06/25/16 7. Pt will void within 6 hours of arriving to the floor on admission date. 8. Will maintain adequate oxygenation via oximetry with SpO2 > 92 by 06/26/16. 9. Will meet 75% of predicted incentive spirometer goal of 1999 by 06/26/16. 10. Pt will demonstrate safe modified indpt walking in room and halls with FWW by 06/28/16. STRATEGY TO ACHIEVE GOALS: 1. Assess pain q4h and PRN. Medicate PRN and re-evaluate pain 30-60 minutes after and re-me dicate PRN. Assist with repositioning for comfort. 2. Assess muscle strength and CMS q4h and PRN. Notify MD if abnormalities are found. 3. Teach lumbar precautions and brace management, cue and assist as needed. Encourage ambul ation to bathroom and in halls as appropriate. Use FWW and staff assist for safety. 4. Start pt on clear liquids when he arrives to the floor and advance to general texture as he tolerates. Medicate with anti-emetics PRN. 5. Assess dressing and vitals with temps q4h and PRN. Monitor lab work as ordered. Notify M D with concerns. 6. Assess bowel tones q shift and PRN. Encourage fluid intake and ambulation to help promot e BM. Monitor for bowel movements and if no BM by 06/25/16 use PRN bowel protocol. 7. Assist pt to BSC or bathroom as needed. If no void within 6 hours, bladder scan pt and brisa jade MD orders to assist empting the bladder. 8. Monitor saturations via oximetry every four and titrate to order as indicated. 9. Instruct patient in the use of Incentive Spirometry and/or deep breath and cough. 10. PT intervention and pt/family education and training. Occupational Therapy Plan of Care Treatment Note Summary: Patient in bed, stating that she just received pain meds and they had not taken e ffect yet. She reported that she was in a lot of pain, but was willing to sit up EOB for edu cation on AE. Patient's daughter was present who will be assisting patient at home. Patient sat up EOB with verbal cues for technique- moves quickly. Donned brace with cues for alignme nt. Reviewed spinal precautions. Patient doffed and donned socks after demonstration using s ock aid and milk tanker driver and patient and daughter educated in where to obtain. Patient asking to return to supine due to pain. Call light in reach, patient and daughter with no further ques tions at this time. Occupational Therapy Discharge Recommendations are: Recommended discharge disposition: home with assist, home with home health Post discharge occupational therapy recommendation: pt is motivated participant, family in volved/supportive Equipment Recommendations: 2 wheeled walker (FWW), long handled sponge, shower chair Patient Status/Goals: Reflects last filed data of Patient Status/Goals may be from multiple contributors. ADLs Patient and daughter were educated in where to obtain AE for LB dressing. Patient doffed an d donned socks after demonstration using sock aid and milk tanker driver. Education on further techniqu es for ADLs following spinal precaution, but patient returned to supine due to pain. LB, Level of [place]: verbal cues required, supervision required Bed Mobility Assistive Device: bed rails Supine to Sit, Level of [place]: supervision required, verbal cues required Sit to Supine, Level of [place]: supervision required, verbal cues required Safety Issues: decreased use of arms for pushing/pulling, decreased use of legs for bridgin g/pushing Impairments: strength decreased, pain STG Goals Transfer Training Goal, Activity Type: walk-in shower, toilet [place] Level: modified independence Assistive Device: 2 wheeled walker (FWW) Time to Achieve: by discharge Goal Status: continued, progressing toward goal Grooming Goal, [place] Level: modified independence Adaptive Equipment: none Position: supported standing Time to Achieve: by discharge Goal Status: continued Bathing Goal, [place] Level: modified independence Adaptive Equpiment: shower chair, sponge, long handled Time to Achieve: by discharge Goal Status: continued Goal Status: continued, progressing toward goal Occupational Therapy will follow Yovany Jackson 3 times/wk until discharge from [facility] or discharged from the hospital. Identified Problems Needing Skilled Intervention: Decreased functional tolerance, self ca re deficit, posture, ROM Planned Interventions:ADL retraining, transfer training Electronically signed by: MUMTAZ Birch, 06/25/2016 11:06 lan of Care - Donna Wilson RN - 06/25/2016 10:04 AM PSTPt and her daughter state she will be needing a FW W. Patient option form signed and placed in [facility] chart. Referral faxed to [facility] and call placed. They will call back with an approximate cost, if a ny is due for patient. Electronically signed by: Donna Morrison RN 06/25/2016 10:05 [facility] contacted, stated FWW ready, no co-pay needed. Information provided to patient as wel l as [facility] address for daughter to poultry picking machine tender FWW prior to discharge. Electronically signed by: Donna Morrison RN 06/25/2016 12:28 lan of Care - Timothy Dallas RN - 06/25/2016 4:32 AM PSTProblem: Patient Care Overview (Adult) Goal: Care Team Goals & Evaluation PROBLEM-RELATED GOALS: 1. Pt s pain will be scored at 3 out of 10 by 06/25/06 2. Strength and sensation to lower extremities will return to pt s baseline or improve by 06/26/16 3. Pt will demonstrate lumbar precautions and ambulate with staff by 06/25/16 4. Pt will tolerate a general textured diet by 06/24/16 5. Pt will be free from s/s of infection through 06/28/16 6. Pt will have BM by 06/25/16 7. Pt will void within 6 hours of arriving to the floor on admission date. 8. Will maintain adequate oxygenation via oximetry with SpO2 > 92 by 06/26/16. 9. Will meet 75% of predicted incentive spirometer goal of 1999 by 06/26/16. 10. Pt will demonstrate safe modified indpt walking in room and halls with FWW by 06/28/16. STRATEGY TO ACHIEVE GOALS: 1. Assess pain q4h and PRN. Medicate PRN and re-evaluate pain 30-60 minutes after and re-me dicate PRN. Assist with repositioning for comfort. 2. Assess muscle strength and CMS q4h and PRN. Notify MD if abnormalities are found. 3. Teach lumbar precautions and brace management, cue and assist as needed. Encourage ambul ation to bathroom and in halls as appropriate. Use FWW and staff assist for safety. 4. Start pt on clear liquids when he arrives to the floor and advance to general texture as he tolerates. Medicate with anti-emetics PRN. 5. Assess dressing and vitals with temps q4h and PRN. Monitor lab work as ordered. Notify M D with concerns. 6. Assess bowel tones q shift and PRN. Encourage fluid intake and ambulation to help promot e BM. Monitor for bowel movements and if no BM by 06/25/16 use PRN bowel protocol. 7. Assist pt to BSC or bathroom as needed. If no void within 6 hours, bladder scan pt and brisa jade MD orders to assist empting the bladder. 8. Monitor saturations via oximetry every four and titrate to order as indicated. 9. Instruct patient in the use of Incentive Spirometry and/or deep breath and cough. 10. PT intervention and pt/family education and training. Outcome: Improving Goal Evaluation: Patient is now POD#2 from lumbar fusion. Pain is mostly in right flank and it is adequatel y controlled with PO medication (2 [facility]'s Q4H). Ambulating Mod-I to/from bathroom with FWW, mobilizing well. MS are 5/5 throughout, CMS is intact. VSS, SL'd. SpO2 maintained on RA. CASSIDY drain with 45 cc of output overnight. Tolerating general diet. Voiding well. BM on 06/23. C olace and senna given. Electronically signed by: TIMOTHY HER RN 06/25/2016 4:32 lan of Care - Johnsonrajni woodysanjuKatie RN - 06/24/2016 6:00 PM PSTProblem: Patient Care Overview (Adult) Goal: Care Team Goals & Evaluation PROBLEM-RELATED GOALS: 1. Pt s pain will be scored at 3 out of 10 by 06/25/06 2. Strength and sensation to lower extremities will return to pt s baseline or improve by 06/26/16 3. Pt will demonstrate lumbar precautions and ambulate with staff by 06/25/16 4. Pt will tolerate a general textured diet by 06/24/16 5. Pt will be free from s/s of infection through 06/28/16 6. Pt will have BM by 06/25/16 7. Pt will void within 6 hours of arriving to the floor on admission date. 8. Will maintain adequate oxygenation via oximetry with SpO2 > 92 by 06/26/16. 9. Will meet 75% of predicted incentive spirometer goal of 2000 by 06/26/16. 10. Pt will demonstrate safe modified indpt walking in room and halls with FWW by 06/28/16. STRATEGY TO ACHIEVE GOALS: 1. Assess pain q4h and PRN. Medicate PRN and re-evaluate pain 30-60 minutes after and re-me dicate PRN. Assist with repositioning for comfort. 2. Assess muscle strength and CMS q4h and PRN. Notify MD if abnormalities are found. 3. Teach lumbar precautions and brace management, cue and assist as needed. Encourage ambul ation to bathroom and in halls as appropriate. Use FWW and staff assist for safety. 4. Start pt on clear liquids when he arrives to the floor and advance to general texture as he tolerates. Medicate with anti-emetics PRN. 5. Assess dressing and vitals with temps q4h and PRN. Monitor lab work as ordered. Notify M D with concerns. 6. Assess bowel tones q shift and PRN. Encourage fluid intake and ambulation to help promot e BM. Monitor for bowel movements and if no BM by 06/25/16 use PRN bowel protocol. 7. Assist pt to BSC or bathroom as needed. If no void within 6 hours, bladder scan pt and brisa jade MD orders to assist empting the bladder. 8. Monitor saturations via oximetry every four and titrate to order as indicated. 9. Instruct patient in the use of Incentive Spirometry and/or deep breath and cough. 10. PT intervention and pt/family education and training. Outcome: Improving Goal Evaluation: Karina pain was well controlled throughout the day with 2 tabs of Hydrocodone Q 4 anthony rs and muscle relaxer PO. Pain rated at a 3-4/10. Pain is located on the R flank side mostly and with transfers. No Numbness or tingling reported. [facility]. 5/5 MS on BUE and 4/4 of BLE. Up in a chair for all meals. B bra ce. Dressing CDI. CASSIDY drain putting out moderate amount of serosanguinous drainage. Calling a ppropriately. Doing well. lan of Care - Donn Pederson Chaplain - 06/24/2016 3:03 PM PSTProblem: Patient Care Overview (Adult) Goal: Personalization Needs & Preferences Spiritual Care Yovany Jackson is a 55 y.o. female who is admitted for Scoliosis, unspecified scolios is type, unspecified spinal region [M41.9]. Spiritual Evaluation: Patient a spiritual person, prays and believes in God. Spiritual Intervention: Listened and advised, had prayer with the patient. Spiritual Outcomes: Patient in the process of making important decision in her life. Grateful for the chaplai n's visit.at Spiritual Goals / Follow-up: Will see the patient as requested. If there are any other spiritual care issues that arise, please contact flash welder. lan of Care - Roseanna Torres OT - 06/24/2016 12:08 PM PSTProblem: Patient Care Overview (Adult) Goal: Care Team Goals & Evaluation PROBLEM-RELATED GOALS: 1. Pt s pain will be scored at 3 out of 10 by 06/25/06 2. Strength and sensation to lower extremities will return to pt s baseline or improve by 06/26/16 3. Pt will demonstrate lumbar precautions and ambulate with staff by 06/25/16 4. Pt will tolerate a general textured diet by 06/24/16 5. Pt will be free from s/s of infection through 06/28/16 6. Pt will have BM by 06/25/16 7. Pt will void within 6 hours of arriving to the floor on admission date. 8. Will maintain adequate oxygenation via oximetry with SpO2 > 92 by 06/26/16. 9. Will meet 75% of predicted incentive spirometer goal of 1999 by 06/26/16. 10. Pt will demonstrate safe modified indpt walking in room and halls with FWW by 06/28/16. STRATEGY TO ACHIEVE GOALS: 1. Assess pain q4h and PRN. Medicate PRN and re-evaluate pain 30-60 minutes after and re-me dicate PRN. Assist with repositioning for comfort. 2. Assess muscle strength and CMS q4h and PRN. Notify MD if abnormalities are found. 3. Teach lumbar precautions and brace management, cue and assist as needed. Encourage ambul ation to bathroom and in halls as appropriate. Use FWW and staff assist for safety. 4. Start pt on clear liquids when he arrives to the floor and advance to general texture as he tolerates. Medicate with anti-emetics PRN. 5. Assess dressing and vitals with temps q4h and PRN. Monitor lab work as ordered. Notify M D with concerns. 6. Assess bowel tones q shift and PRN. Encourage fluid intake and ambulation to help promot e BM. Monitor for bowel movements and if no BM by 06/25/16 use PRN bowel protocol. 7. Assist pt to BSC or bathroom as needed. If no void within 6 hours, bladder scan pt and brisa jade MD orders to assist empting the bladder. 8. Monitor saturations via oximetry every four and titrate to order as indicated. 9. Instruct patient in the use of Incentive Spirometry and/or deep breath and cough. 10. PT intervention and pt/family education and training. Outcome: Improving Occupational Therapy Plan of Care Initial Evaluation, Treatment Note Summary: Pt seen for initial OT eval and tx. Pt present s/p L2-L5 XLIF resulting in funct ional mobility deficits and decreased activity tolerance. Pt lives alone at home with skyler monroy next door available 25/01. Pt has walk in shower with no chair (daughter states she is wo rking on getting chair). Daughter also states she will be assisting pt with dressing and ba thing tasks. Pt presenting with impulsively during all functional transfers, requires CGA for bed mobility and toilet transfer however needs multiple VC to move slower and maintain b ack precautions during transfers. Pt also requires VC for walker, tends to steer walker wit hout looking for obstacles; runs into door frames. Pt requires mod VC to decrease anxiety, tends to exhibit frantic attitude during toilet transfers. Educated pt and pt's daughter on safe mobilization and importance of maintaining spinal precautions and moving slowly. Pt w ith nausea upon cessation of session, emesis of approx 4 oz. Nursing notified. Anticipate p t will transfer home with assist pending progress with therapies and medically. OT to follo w while pt in acute care. Occupational Therapy Discharge Recommendations are: Recommended discharge disposition: home with assist, home with home health Post discharge occupational therapy recommendation: pt is motivated participant, family in volved/supportive Equipment Recommendations: 2 wheeled walker (FWW), long handled sponge, shower chair Patient Status/Goals: Reflects last filed data of Patient Status/Goals may be from multiple contributors. ADLs Pt able to complete toilet training with VC to maintain spinal precautions Toileting, Level of [place]: set up required, contact guard assist, verbal cues requir ed Assistive Device: none Toileting Assess/Train, Position: sitting Toileting Assess/Train, Impairments: strength decreased, impaired balance Bed Mobility Needs VCs during bed mobility for safety and maintenance of precautions Assistive Device: bed rails Supine to Sit, Level of [place]: contact guard assist Safety Issues: decreased use of arms for pushing/pulling, decreased use of legs for bridgin g/pushing Impairments: strength decreased, impaired balance, motor control impaired, pain Transfers Cues for hand placement, tends to move impulsively. VC to move slower Sit-Stand, Level of [place]: contact guard assist, verbal cues required Stand-Sit, Level of [place]: contact guard assist, verbal cues required [id number], Assistive Device: 2 wheeled walker (FWW) Toilet, Level of [place]: verbal cues required, contact guard assist Toilet, Assistive Device: 2 wheeled walker (FWW), grab bars Safety Issues: step length decreased Impairments: coordination impaired, strength decreased, impaired balance, pain ROM Within spinal precautions L UE ROM: WFL R UE ROM: WFL Strength L UE Strength: WFL R UE Strength: WFL STG Goals Transfer Training Goal, Activity Type: walk-in shower, toilet [place] Level: modified independence Assistive Device: 2 wheeled walker (FWW) Time to Achieve: by discharge Goal Status: new Grooming Goal, [place] Level: modified independence Adaptive Equipment: none Position: supported standing Time to Achieve: by discharge Goal Status: new Bathing Goal, [place] Level: modified independence Adaptive Equpiment: shower chair, sponge, long handled Time to Achieve: by discharge Goal Status: new Occupational Therapy will follow Yovany Jackson 3 times/wk until discharge from [facility] or discharged from the hospital. Identified Problems Needing Skilled Intervention: Decreased functional tolerance, self ca re deficit, posture, ROM Planned Interventions:ADL retraining, transfer training Electronically signed by: Roseanna Torres OT, 06/24/2016 15:29 lan of Jackelin Rajput - 06/24/2016 10:16 AM PSTDischarge Planning: Met with Yovany and her daughter this morning to discuss her discharge plan Yovany lives with he SO in [place]. They live in a Ranch style home with 3 steps at th e entrance. Yovany plans on getting all her DME at [facility] in [place]. Home health was declined. Yovany's daughter lives next door and will help out as needed. Yovany uses [facility] in [place] for her pharmacy needs. Yovany SO will transport he r home when she is medically stable. No discharge needs at this time. Electronically signed by: Jackelin Delatorre 06/24/2016 10:45 lan of Care - Savana Lolita johnie Fink, PT - 06/24/2016 9:56 AM PSTProblem: Patient Care Overview (Adult) Goal: Care Team Goals & Evaluation PROBLEM-RELATED GOALS: 1. Pt s pain will be scored at 3 out of 10 by 06/25/06 2. Strength and sensation to lower extremities will return to pt s baseline or improve by 06/26/16 3. Pt will demonstrate lumbar precautions and ambulate with staff by 06/25/16 4. Pt will tolerate a general textured diet by 06/24/16 5. Pt will be free from s/s of infection through 06/28/16 6. Pt will have BM by 06/25/16 7. Pt will void within 6 hours of arriving to the floor on admission date. 8. Will maintain adequate oxygenation via oximetry with SpO2 > 92 by 06/26/16. 9. Will meet 75% of predicted incentive spirometer goal of 1999 by 06/26/16. 10. Pt will demonstrate safe modified indpt walking in room and halls with FWW by 06/28/16. STRATEGY TO ACHIEVE GOALS: 1. Assess pain q4h and PRN. Medicate PRN and re-evaluate pain 30-60 minutes after and re-me dicate PRN. Assist with repositioning for comfort. 2. Assess muscle strength and CMS q4h and PRN. Notify MD if abnormalities are found. 3. Teach lumbar precautions and brace management, cue and assist as needed. Encourage ambul ation to bathroom and in halls as appropriate. Use FWW and staff assist for safety. 4. Start pt on clear liquids when he arrives to the floor and advance to general texture as he tolerates. Medicate with anti-emetics PRN. 5. Assess dressing and vitals with temps q4h and PRN. Monitor lab work as ordered. Notify M D with concerns. 6. Assess bowel tones q shift and PRN. Encourage fluid intake and ambulation to help promot e BM. Monitor for bowel movements and if no BM by 06/25/16 use PRN bowel protocol. 7. Assist pt to BSC or bathroom as needed. If no void within 6 hours, bladder scan pt and brisa jade MD orders to assist empting the bladder. 8. Monitor saturations via oximetry every four and titrate to order as indicated. 9. Instruct patient in the use of Incentive Spirometry and/or deep breath and cough. 10. PT intervention and pt/family education and training. Physical Therapy Plan of Care Initial Evaluation, Treatment Note Summary: PT eval/tx completed s/p L2-5 XLIF. Pt very uncomfortable resting in bed on zechariah omalley, daughter Cassandra at bedside. Pt agreeable to therapy. Had not attended spine class. PT e ducated and provided postop training in grade B precautions. Pt then participated in bed mob ility training, don/doffing LSO, transfers and gait trg with FWW to bathroom, then short dis tance into halls. BTB after activity. Pt initially very stiff and painful, but reported feel ing significant improvement being up and moving. Notable increase in confidence and relaxati on throughout session. Gait steady and ronit increased with distance. Pt advised to sit in chair for meals and do more short walks to bathroom and halls with nrsg. PT to see tomorrow and progress toward modified indpt status. Dtr lives next door and available/planning to as sist 25/01 as needed. Physical Therapy Discharge Recommendations are: Recommended discharge disposition: home with assist Post discharge physical therapy recommendation: pt is motivated participant, family involv ed/supportive Equipment Recommendations: 2 wheeled walker (FWW) Patients mobility is significantly impai red s/p lumbar fusion Pt. will require FWW prior to d/c. FWW will improve gait stability, de crease fall risk, and allow for performance of ADL's in the home. Patient Status/Goals: Reflects last filed data of Patient Status/Goals may be from multiple contributors. Gait Very stiff and painful initially, but improved relaxation, ronit and stability with incre ased gait distance, FWW Level of [place] : contact guard assist, verbal cues required Assistive Device: 2 wheeled walker (FWW) Distance (feet): 15' x 3 Transfers Cues for hand placement and to widen KELSEY Sit-Stand, Level of [place]: contact guard assist, verbal cues required Stand-Sit, Level of [place]: contact guard assist, verbal cues required [id number], Assistive Device: 2 wheeled walker (FWW) Safety Issues: step length decreased Impairments: coordination impaired, strength decreased, impaired balance, pain Bed Mobility Needing 1P assist for education of tech, physical assistance and vc's. Assistive Device: bed rails, HOB elevated Supine to Sit, Level of [place]: minimum assist (75% patient effort), verbal cues requ ired Sit to Supine, Level of [place]: contact guard assist, verbal cues required Safety Issues: decreased use of arms for pushing/pulling, decreased use of legs for bridgin g/pushing Impairments: strength decreased, impaired balance, motor control impaired, pain Balance good sitting/standing with support Functional Endurance fair ROM Within spinal precautions ROM Testing Results: no range of motion deficits identified Strength L LE Strength: 4+/5 guarded R LE Strength: 4+/5 guarded and painful STG GOALS Bed Mobility Goal, Activity Type: supine to sit/sit to supine [place] Level: independent Assistive Device: none Time to Achieve: 3 days Goal Status: new Transfer Training Goal, Activity Type: sit to stand/stand to sit [place] Level: modified independence Assistive Device: 2 wheeled walker (FWW) Time to Achieve: 3 days Goal Status: new Gait Training Goal, [place] Level: modified independence Assistive Device: 2 wheeled walker (FWW) Distance: 150 Time to Achieve: 3 days Goal Status: new Stairs Goal, [place] Level: contact guard assist Assistive Device: 1 rail (or 1P hand held which she will have at home) Number of Stairs: 4 Time to Achieve: 3 days Goal Status: new Additional Goal #1: Pt able to don/doff LSO indpt and verbalize/demonstrate good understand ing of grade B precautions. Time to Achieve: 3 days Goal Status: new Physical Therapy will follow Yovany Jackson daily until discharge from therapy or dis charged from the hospital. Identified Problems Needing Skilled Intervention: Impaired bed mobility, transfers, general ized weakness, pain and gait instability, gait, locomotion, and balance Planned Interventions: bed mobility training, gait training, stair training, postural re-ed ucation, patient/family education, orthotic fitting/training, transfer training Electronically signed by: Clara Sawant PT, 06/24/2016 9:47 lan of Care - Stephany Koehler RN - 06/24/2016 6:35 AM PSTProblem: Patient Care Overview (Adult) Goal: Care Team Goals & Evaluation PROBLEM-RELATED GOALS: 1. Pt s pain will be scored at 3 out of 10 by 06/25/06 2. Strength and sensation to lower extremities will return to pt s baseline or improve by 06/26/16 3. Pt will demonstrate lumbar precautions and ambulate with staff by 06/25/16 4. Pt will tolerate a general textured diet by 06/24/16 5. Pt will be free from s/s of infection through 06/28/16 6. Pt will have BM by 06/25/16 7. Pt will void within 6 hours of arriving to the floor on admission date. 8. Will maintain adequate oxygenation via oximetry with SpO2 > 92 by 06/26/16. 9. Will meet 75% of predicted incentive spirometer goal of 1999 by 06/26/16. STRATEGY TO ACHIEVE GOALS: 1. Assess pain q4h and PRN. Medicate PRN and re-evaluate pain 30-60 minutes after and re-me dicate PRN. Assist with repositioning for comfort. 2. Assess muscle strength and CMS q4h and PRN. Notify MD if abnormalities are found. 3. Teach lumbar precautions and brace management, cue and assist as needed. Encourage ambul ation to bathroom and in halls as appropriate. Use FWW and staff assist for safety. 4. Start pt on clear liquids when he arrives to the floor and advance to general texture as he tolerates. Medicate with anti-emetics PRN. 5. Assess dressing and vitals with temps q4h and PRN. Monitor lab work as ordered. Notify M D with concerns. 6. Assess bowel tones q shift and PRN. Encourage fluid intake and ambulation to help promot e BM. Monitor for bowel movements and if no BM by 06/25/16 use PRN bowel protocol. 7. Assist pt to BSC or bathroom as needed. If no void within 6 hours, bladder scan pt and brisa jade MD orders to assist empting the bladder. 8. Monitor saturations via oximetry every four and titrate to order as indicated. 9. Instruct patient in the use of Incentive Spirometry and/or deep breath and cough. Goal Evaluation: Pt had a very hard time with pain control vs oversedation during first half of shift. Much more alert now, tolerating 4mg IV morphine with much better relief. Gave 2.5 of IV diazepam for spasm. Dorsi/plantar is strong but lifting legs off the bed is inhibited by pain akin ri ght leg. Bearing weight well, reports dizziness when standing. Transferring to BSC to void. Urine is cloudy yellow and odorous. No burning or urgency. Denies numbness/tingling. Pulses palpable, extremities warm. lan of Clara Gary, RETAIL MERCHANDISER TECHNICIAN - 06/23/2016 10:26 PM PSTProblem: Patient Care Overview (Adult) Goal: Care Team Goals & Evaluation PROBLEM-RELATED GOALS: 1. Pt s pain will be scored at 3 out of 10 by 06/25/06 2. Strength and sensation to lower extremities will return to pt s baseline or improve by 06/26/16 3. Pt will demonstrate lumbar precautions and ambulate with staff by 06/25/16 4. Pt will tolerate a general textured diet by 06/24/16 5. Pt will be free from s/s of infection through 06/28/16 6. Pt will have BM by 06/25/16 7. Pt will void within 6 hours of arriving to the floor on admission date. STRATEGY TO ACHIEVE GOALS: 1. Assess pain q4h and PRN. Medicate PRN and re-evaluate pain 30-60 minutes after and re-me dicate PRN. Assist with repositioning for comfort. 2. Assess muscle strength and CMS q4h and PRN. Notify MD if abnormalities are found. 3. Teach lumbar precautions and brace management, cue and assist as needed. Encourage ambul ation to bathroom and in halls as appropriate. Use FWW and staff assist for safety. 4. Start pt on clear liquids when he arrives to the floor and advance to general texture as he tolerates. Medicate with anti-emetics PRN. 5. Assess dressing and vitals with temps q4h and PRN. Monitor lab work as ordered. Notify Danae Reyes with concerns. 6. Assess bowel tones q shift and PRN. Encourage fluid intake and ambulation to help promot e BM. Monitor for bowel movements and if no BM by 06/25/16 use PRN bowel protocol. 7. Assist pt to BSC or bathroom as needed. If no void within 6 hours, bladder scan pt and brisa jade MD orders to assist empting the bladder. Goal Evaluation: Patient's oxygen was titrated from 3l/m oxymask to 2l/m nc. Breath sounds clear. Patient was in too much pain to use insp. Continue to monitor patient. lan of Care - Zara Hyde RN - 06/23/2016 10:24 PM PSTProblem: Patient Care Overview (Adult) Goal: Care Team Goals & Evaluation PROBLEM-RELATED GOALS: 1. Pt s pain will be scored at 3 out of 10 by 06/25/06 2. Strength and sensation to lower extremities will return to pt s baseline or improve by 06/26/16 3. Pt will demonstrate lumbar precautions and ambulate with staff by 06/25/16 4. Pt will tolerate a general textured diet by 06/24/16 5. Pt will be free from s/s of infection through 06/28/16 6. Pt will have BM by 06/25/16 7. Pt will void within 6 hours of arriving to the floor on admission date. STRATEGY TO ACHIEVE GOALS: 1. Assess pain q4h and PRN. Medicate PRN and re-evaluate pain 30-60 minutes after and re-me dicate PRN. Assist with repositioning for comfort. 2. Assess muscle strength and CMS q4h and PRN. Notify MD if abnormalities are found. 3. Teach lumbar precautions and brace management, cue and assist as needed. Encourage ambul ation to bathroom and in halls as appropriate. Use FWW and staff assist for safety. 4. Start pt on clear liquids when he arrives to the floor and advance to general texture as he tolerates. Medicate with anti-emetics PRN. 5. Assess dressing and vitals with temps q4h and PRN. Monitor lab work as ordered. Notify M D with concerns. 6. Assess bowel tones q shift and PRN. Encourage fluid intake and ambulation to help promot e BM. Monitor for bowel movements and if no BM by 06/25/16 use PRN bowel protocol. 7. Assist pt to BSC or bathroom as needed. If no void within 6 hours, bladder scan pt and brisa jade MD orders to assist empting the bladder. Goal Evaluation: Pt arrived today about 1830 post lumbar fusion, grade B brace. On arrival she was very roland maegan and difficult to keep awake. This has improved but pt is still very sleepy and falls juan k to sleep during conversations. Pt has 5 large band aids to her back and 2 to her right rehan e, all are CDI. CASSIDY site is without complications noted, draining sanguinous output. Pt nano es any numbness or tingling to either leg. Muscle strengths are weak due to pain and sedati on at this time, a weak 4/5 bilaterally. Dorsal and plantar are moderate. Pt has hypoactive bowel tones and taking sip of water, IVF running at 100 ml/hr. She has already voided on the BSC, she required max assist in and out of bed and to don and doff her brace. Pt stood but needed staff to control her balance and guide her to commode, voided without difficulty. Leyla g sounds clear but she is breathing shallow when she falls asleep so O2 2 liters/nc in place . VSS, afebrile. Pt has started her valium and IV morphine for pain control. SCD and bed ala rm on. p Note - Anjum Carter DO - 06/23/2016 5:21 PM PSTDATE: 06/23/2016 SURGEON: Anjum Carter DO ELECTRICAL INSPECTOR: JOCELINE Bernard PREOPERATIVE DIAGNOSES 1. Lumbar scoliosis. 2. Lumbar spondylolisthesis. 3. Spondylosis L2-3, L3-4, L4-5. 4. Stenosis L2-3, L3-4, L4-5. 5. Lumbar radiculopathy. 6. Lumbago. POSTOPERATIVE DIAGNOSES 1. Lumbar scoliosis. 2. Lumbar spondylolisthesis. 3. Spondylosis L2-3, L3-4, L4-5. 4. Stenosis L2-3, L3-4, L4-5. 5. Lumbar radiculopathy. 6. Lumbago. PROCEDURES PERFORMED 1. Anterior lumbar interbody arthrodesis L2-3, L3-4, L4-5, lateral approach. 2. Postereolateral arthrodesis L2-3, L3-4, L4-5. 3. PEEK interbody L2-3, L3-4, L4-5. 4. Posterior spinal instrumentation L2-L5. 5. Laminectomies L2, L3, L4, L5. 6. Use of allograft. 7. Use of microscope for microsurgical techniques. 8. Co-registration with navigation system for spinal navigation. ANESTHESIA: General endotracheal anesthesia. ESTIMATED BLOOD LOSS: 200 mL. DRAINS: CASSIDY. COMPLICATIONS: None. DISPOSITION: The patient is stable to the PACU. INDICATION FOR THE PROCEDURE: Ms. Jackson is a 55-year-old woman with low back pain, leg quyen n, and leg weakness. MRI and x-rays of the lumbar spine revealed scoliosis, spondylolisthesi s, spondylosis, and stenosis L2-L5. The patient tried and failed multiple conservative treat ment modalities to alleviate her symptoms. Given the patient's rapid symptomatic progression , she elected to proceed with the above named procedures. SURGICAL RISKS: The patient was well-apprised of all objectives, benefits, risks, and poten tial complications of procedure, including but not limited to worsening of the current statu s, possible need for further procedures, risk of infection, headaches, CSF leak, possible sp inal nerve injury resulting in paralysis, infection, injury to major vessel causing hemorrha ge, stroke, loss of language function, coma, and even . An informed consent was obtaine d and secured in the chart after the patient voice understanding these risks and decided to proceed with the operation. DESCRIPTION OF PROCEDURE: The patient was transferred to operating room #2. She was given p reoperative prophylactic IV antibiotics. The patient was sedated and intubated without diffi culty by the anesthesia service. Eyes were taped shut after ointment was applied to prevent corneal abrasion. A Maru Hugger was placed over her lower body to maintain control of core b sima temperature. A Green catheter was inserted. The patient was placed in lateral position w ith her right side up. All pressure points were carefully padded. After connecting her to [employer] NeuroVision system appropriately, she was secured to the bed with tape, and her side, axil la, and extremities were positioned and padded appropriately. Fluoroscopy was then used to localize the levels of L2-3, L3-4, and L4-5 on AP and lateral projection. Her flank was then prepped and draped over this region on the right side and a t imeout was performed. All members of the surgical team agreed with the treatment. The patient's skin was incised with #10 scalpel blade over the L4-5 segment in an oblique f ashion. It was opened approximately 4 cm and the subcutaneous tissue was exposed. The tissue was dissected with Bovie electrocautery down to the abdominal musculature. Two hemostats we re used to then dilate through the tissue to the fascial plane into the retroperitoneal spac e. Retroperitoneal fat was encountered and a finger sweeping technique was used to mobilize it. The psoas muscle was palpated and a dilator was inserted at the L4-5 segment through the psoas muscle with neuromonitoring performed. There was proximity to the nervous tissues pos terior to where the dilator was. The dilator was advanced more anteriorly where the proximit y significantly decreased. The nerves were found to be posterior to the dilator. Sequential dilation was then performed with increasing sized dilators with neuromonitoring performed wi th each dilator. Eventually a 130 mm retractor was inserted into the field and docked at the L4-5 segment. Light source was connected through retractor and the appropriate position was confirmed on AP and lateral fluoroscopy. A mikael was then inserted into the posterior blade of the retractor after monitoring this region for nervous structure. The retractor was then opened anteriorly and the disk was removed in piecemeal fashion with pituitary rongeurs, cur ettes, Kerrison rongeurs and broaches. This process continued until the endplates were adequ ately abrasioned and prepared for arthrodesis. After trialing, a 8 x 22 x 55 mm 10-degrees lordotic CoRoent PEEK cage from [employer] was ch osen. It was filled with Infuse and [place] putty. It was tamped into the interbody space of L4-5. The retractor was removed and hemostasis was meticulously achieved along the tract. Next, the patient's skin was incised with #10 scalpel blade over the L2-3 and L3-4 segments in an oblique fashion. It was opened approximately 6 cm and the subcutaneous tissue was exp osed. The tissue was dissected with Bovie electrocautery down to the abdominal musculature. Two hemostats were used to then dilate through the tissue to the fascial plane into the retr operitoneal space. Retroperitoneal fat was encountered and a finger sweeping technique was u sed to mobilize it. The psoas muscle was palpated and a dilator was inserted at the L3-4 seg ment through the psoas muscle with neuromonitoring performed. There was proximity to the ner vous tissues posterior to where the dilator was. The dilator was advanced more anteriorly wh ere the proximity significantly decreased. The nerves were found to be posterior to the dila tor. Sequential dilation was then performed with increasing sized dilators with neuromonitor ing performed with each dilator. Eventually a 120 mm retractor was inserted into the field a nd docked at L3-4 segment. Light source was connected through retractor and the appropriate position was confirmed on AP and lateral fluoroscopy. A mikael was then inserted into the post erior blade of the retractor after monitoring this region for nervous structure. The retract or was then opened anteriorly and the disk was removed in piecemeal fashion with pituitary r ongeurs, curettes, Kerrison rongeurs and broaches. This process continued until the endplate s were adequately abrasioned and prepared for arthrodesis. After trialing, a 8 x 22 x 50 mm 10-degrees lordotic CoRoent PEEK cage from [employer] was ch osen. It was filled with Infuse and [place] putty. It was tamped into the interbody space of L3-4. The retractor was removed and hemostasis was meticulously achieved along the tract. Next, the L2-3 level was targeted. The tissue was dissected with Bovie electrocautery down to the intercostal musculature. Two hemostats were used to then dilate through the tissue to the fascial plane into the retroperitoneal space. Retroperitoneal fat was encountered and a finger sweeping technique was used to mobilize it. The psoas muscle was palpated and a dila tor was inserted at the L2-3 segment through the psoas muscle with neuromonitoring performed . There was no proximity to nervous tissues posterior to where the dilator was. Sequential d ilation was then performed with increasing sized dilators with neuromonitoring performed at each dilator. The nerves were found to be posterior to the dilators. A 120 mm length retract or was then inserted into the field and docked at the L2-3 segment. Light source was connect ed and the retractor was confirmed in the appropriate position on AP and lateral fluoroscopy . A mikael was then inserted into the posterior blade of the retractor after monitoring this r egion for nervous structures. The retractor was then opened anteriorly and the disk was nabila alejo in piecemeal fashion with pituitary rongeurs, curettes, Kerrison rongeurs and broaches. This process continued until the endplates were adequately abrasioned and prepared for arthr odesis. After trialing, a 8 x 22 x 50 mm 10-degree lordotic PEEK cage from [employer] was chosen. It was filled with Infuse and [place]les putty. It was tamped into the interbody space of L2-3. e retractor was removed. Hemostasis was meticulously achieved along the tract. At this point the lateral incision was closed. First the fascial layer was closed with phong ral [id number] interrupted 2-0 Vicryl stitches. Then the subcuticular layer was closed with inverted interrupted 2-0 Vicryl stitches. Surgical bhavesh were used for skin. Mastisol and Steri-Strips were placed over the wound and Band-Aids were placed over the incision. The patient was then rolled supine on operating table and the Andrei table was brought int o the room. The patient was turned prone onto the Andrei table with all her pressure points well padded. Her back was prepped and draped in standard sterile fashion for the planned po sterior instrumentation and posterolateral fusion, laminectomies, and transforaminal interbo dy fusion. An incision was made over the spinous process superior to where the patient would have her surgery performed, and in a subperiosteal fashion the spinous process was exposed and the sp inous process fixator clamp for the neuronavigation system was affixed. The O-arm was draped sterilely and brought into the operative field, and the L2-L5 levels were targeted using e O-arm. The O-arm spin was conducted with co-registration with the Stealth system using the Stealth probe, and an appropriate trajectory for ideal screw placement was made bilaterally from L2-L5. This was marked at the skin level and the monterroso were infiltrated with 0.25% Mar jonse with epinephrine. A #10 scalpel blade was then used for skin incision on the right rehan e. Next, the L2, L3, L4, and L5 pedicles were approached with the neuronavigational probe thro ugh the tissue protector and an awl/TAP combination device was navigated down to the ideal i nsertion site within the pedicle. The pedicles were then cannulated from L2-L5. The right L2 pedicle accepted a 5.5 x 55 mm Voyager screw from [employer]. The right L3 pedicle accepted a 5.5 x 50 mm pedicle screw. The right L4 pedicle accepted a 5.5 x 50 mm pedicle screw. The right L5 pedicle accepted a 6.5 x 45 mm pedicle screw. Next, attention was turned to the left side where a #10 scalpel blade was used for incision at the right L2-L5 levels, and those pedicles were targeted with the neuronavigational prob e and tissue protector. An awl/TAP combination device was used to navigate down to the ideal insertion site within the pedicle and the pedicles were cannulated. At that point, the guid ewires were placed in the pedicles and snapped to the drape out of the way. Next, the Stealth navigation system was used to target the facet joint at L4-5. The probe w as dilated to 22 mm and, a 6 cm x 22 mm tubular dilator was docked over the L4-5 interlamina r space in ideal position on the right. Soft tissues were cleared away and the microscope wa s brought into the operative field. Using high-speed electric drilling, the inferior lamina of L4 was removed, and then attention was turned to the superior lamina of L5, which was sub sequently removed. Ligamentum flavum was encountered and uplifted and removed. The epidural space was encountered. The thecal sac was well decompressed at that point. Hemostasis was ac hieved and Gelfoam was placed over the neural elements. Next, the Stealth navigation system was used to target the facet joint at L3-4. The probe w as dilated to 22 mm and, a 6 cm x 22 mm tubular dilator was docked over the L3-4 interlamina r space in ideal position on the right. Soft tissues were cleared away and the microscope wa s brought into the operative field. Using high-speed electric drilling, the inferior lamina of L3 was removed, and then attention was turned to the superior lamina of L4, which was sub sequently removed. Ligamentum flavum was encountered and uplifted and removed. The epidural space was encountered. The thecal sac was well decompressed at that point. Hemostasis was ac hieved and Gelfoam was placed over the neural elements. Next, the Stealth navigation system was used to target the facet joint at L2-3. The probe w as dilated to 22 mm and, a 6 cm x 22 mm tubular dilator was docked over the L2-3 interlamina r space in ideal position on the right. Soft tissues were cleared away and the microscope wa s brought into the operative field. Using high-speed electric drilling, the inferior lamina of L2 was removed, and then attention was turned to the superior lamina of L3, which was sub sequently removed. Ligamentum flavum was encountered and uplifted and removed. The epidural space was encountered. The thecal sac was well decompressed at that point. Hemostasis was ac hieved and Gelfoam was placed over the neural elements. Next, the facet joint of L4-5 was targeted with the stealth probe on the left. METRx tubula r dilators were used to dilate to 6 cm x 22 mm. Soft tissue was cleared away. The facet join t was decorticated. It was then packed with [place]les putty and cancelous bone chips. Hemostas is was achieved, and the retractor was removed. This completed the posterolateral fusion at L4-5. Next, the facet joint of L3-4 was targeted with the stealth probe on the left. METRx tubula r dilators were used to dilate to 6 cm x 22 mm. Soft tissue was cleared away. The facet join t was decorticated. It was then packed with [place] putty and cancelous bone chips. Hemostas is was achieved, and the retractor was removed. This completed the posterolateral fusion at L3-4. Next, the facet joint of L2-3 was targeted with the stealth probe on the left. METRx tubula r dilators were used to dilate to 6 cm x 22 mm. Soft tissue was cleared away. The facet join t was decorticated. It was then packed with [place] putty and cancelous bone chips. Hemostas is was achieved, and the retractor was removed. This completed the posterolateral fusion at L2-3. Next, attention was turned to the guidewires at L2-L5 on the left side. At the left L2 pedi alem a 5.5 x 55 mm Voyager screw was placed. At the left L3 pedicle a 5.5 x 50 mm pedicle scr ew was placed. At the left L4 pedicle a 5.5 x 50 mm pedicle screw was placed. At the left L5 pedicle a 6.5 x 45 mm pedicle screw was placed. Appropriate sized rods which measured 100 mm were chosen and attached to [employer] marilia passer . A more cephalad transverse incision was made approximately 3 fingerbreadths superior to th e first screw cyber forensics analyst bilaterally, then the rods were passed subfascially into the screw ex tenders. A marilia lap checker was used to ensure proper placement of the marilia. The O-arm was again b rought into the operative field, and using AP and lateral fluoroscopy, the rods were found t o be in good position. The rods were then reduced down, and once they were reduced, they wer e secured in place with set screws which were torqued to the supervisor tree fruit and nut farming's recommended torq ue. This occurred bilaterally. Next, the set screw extenders were removed, and the O-arm was brought into the operative fi eld for a final CT scan, which showed ideal placement of screws, rods and interbodies. The wounds were repaired using 2-0 interrupted Vicryl in buried subcuticular fashion. A Fernie kson-Torres drain was inserted on the patient's right side, and the skin was reapproximated w ith Mastisol and Steri-Strips. Band-Aids were placed over all the wounds. All sponge counts, needle counts, instrument counts were correct at the end of the case x2. The patient tolerated the procedure well and was transferred in stable condition to the rec overy room. rief Op N ote - Anjum Carter DO - 06/23/2016 5:18 PM PSTFormatting of this note might be differen t from the original. Brief Operative Note Yovany Jackson 55 y.o. female 1960 [id number] Proc. Date 06/23/2016 Preop Dx Scoliosis, unspecified scoliosis type, unspecified spinal region [M41.9] Postop Dx same Procedure L2-3, L3-4, L4-5 Lateral Anterior Interbody Fusion Anesthesia General Surgeon Anjum Carter DO - Primary General Helper JOCELINE Knott EBL 200 mL Findings Findings consistent with scheduled procedure. No other abnormalities found. Complications none Specimens * No specimens in log * Drains Drain/Device Site 06/23/16 1643 lumbar spine (Active) Drainage Characteristics/Odor serosanguineous 06/23/2016 17:05 Drainage Amount scant 06/23/2016 17:05 Electronically signed by: Anjum Carter DO 06/23/2016 17:18 [facility] DO at 06/05 5:18 PM PSTPlan of Care - Radha Abdi, PT - 06/23/2016 4:22 PM PSTProblem: Georgie ent Care Overview (Adult) Goal: Care Team Goals & Evaluation PROBLEM-RELATED GOALS: 1. Pt s pain will be scored at 3 out of 10 by 06/25/06 2. Strength and sensation to lower extremities will return to pt s baseline or improve by 06/26/16 3. Pt will demonstrate lumbar precautions and ambulate with staff by 06/25/16 4. Pt will tolerate a general textured diet by 06/24/16 5. Pt will be free from s/s of infection through 06/28/16 6. Pt will have BM by 06/25/16 7. Pt will void within 6 hours of arriving to the floor on admission date. STRATEGY TO ACHIEVE GOALS: 1. Assess pain q4h and PRN. Medicate PRN and re-evaluate pain 30-60 minutes after and re-me dicate PRN. Assist with repositioning for comfort. 2. Assess muscle strength and CMS q4h and PRN. Notify MD if abnormalities are found. 3. Teach lumbar precautions and brace management, cue and assist as needed. Encourage ambul ation to bathroom and in halls as appropriate. Use FWW and staff assist for safety. 4. Start pt on clear liquids when he arrives to the floor and advance to general texture as he tolerates. Medicate with anti-emetics PRN. 5. Assess dressing and vitals with temps q4h and PRN. Monitor lab work as ordered. Notify M Amy with concerns. 6. Assess bowel tones q shift and PRN. Encourage fluid intake and ambulation to help promot e BM. Monitor for bowel movements and if no BM by 06/25/16 use PRN bowel protocol. 7. Assist pt to BSC or bathroom as needed. If no void within 6 hours, bladder scan pt and brisa jade MD orders to assist empting the bladder. Outcome: Improving Missed Visit Patient Information Patient Name: Yovany Jackson Date of : 1960 Age: 55 y.o. The patient was unable to be seen for today's scheduled visit due to late arrival to floor from surgery. Plan: PT eval to be completed tomorrow. Electronically signed by: Radha Abdi PT, 06/23/2016 16:21 documented in this encounter Plan of Treatment + +------+--------+ + + | Name | Type | Priori | Associated Diagnoses | Order Schedule | | | | ty | | | + +------+--------+ + + | DME: Walker | DME | Routin | Scoliosis of | DME 1 Time for 1 | | | | e | lumbar spine, | Occurrences starting | | | | | unspecified | 06/23/2016 until | | | | | scoliosis type | 06/23/2016 | | | | | Radiculopathy, | | | | | | lumbar region | | | | | | Neurogenic | | | | | | claudication - Dec | | | | | | 2016 | | + +------+--------+ + + documented as of this encounter Procedures + +--------+ + + + | Procedure Name | Priori | Date/Time | Associated Diagnosis | Comments | | | ty | | | | + +--------+ + + + | RESPIRATORY THERAPY | Routin | 06/23/2016 | | | | COMMUNICATION | e | 10:23 PM | | | | | | PST | | | + +--------+ + + + | XR LUMBAR SPINE 2 OR | STAT | 06/23/2016 | | Results for this | | 3 VW | | 6:07 PM | | procedure are in the | | | | PST | | results section. | + +--------+ + + + | FL DAWSON STATS NO | Routin | 06/23/2016 | | Results for this | | CHARGE | e | 4:49 PM | | procedure are in the | | | | PST | | results section. | + +--------+ + + + | FUSION LUMBAR W/ | | 06/23/2016 | Scoliosis, | | | LATERAL APPROACH | | 12:52 PM | unspecified | | | (XLIF) | | PST | scoliosis type, | | | | | | unspecified spinal | | | | | | region | | + +--------+ + + + +---+--------+ | | Case | | | Notes | | | | | | Origin | | | al | | | Schedu | | | ler | | | Commen | | | ts/Not | | | es | | | Sent | | | Over | | | 04/06/ | | | 2015 @ | | | | | | 1531:C | | | -Arm, | | | Drill, | | | | | | Micros | | | cope, | | | [employer] | | | Est | | | time: | | | 4HO-Ar | | | m, | | | Naviga | | | tion | | | Instru | | | ments, | | | | | | Stealt | | | h | | | Biolog | | | ics: | | | Infuse | | | , | | | Grafto | | | n | | | Table: | | | | | | Jackso | | | n Purling | | | | | | Frame, | | | | | | Jackso | | | n | | | Frame | +---+--------+ | | | | | Specia | | | l | | | Needs | | | Thanh | | | | | | Phil | | | - | | | Allenge | | | r; | | | Bert | | | Conkli | | | n - | | | XLIF | | | Cage | +---+--------+ + +--------+ +---+ + | TYPE AND SCREEN | Routin | 06/23/2016 | | Results for this | | | e | 10:40 AM | | procedure are in the | | | | PST | | results section. | + +--------+ +---+ + documented in this encounter Results XR Lumbar Spine 2 or 3 Vw (06/23/2016 6:07 PM PST) + + | Specimen | + + | | + + + + + | Narrative | Performed At | + + + | LUMBAR SPINE: 06/23/2016 6:00 PM CLINICAL HISTORY: post op | [facility] | | lumbar surgery COMPARISON: 12/06/2015 FINDINGS: AP and | | | crosstable lateral views of lumbar spine. Posterior pedicle screw | | | and marilia and interbody fusion has been performed from L2-L5. Fixation | | | components appear in appropriate position and configuration. | | | Vertebral body heights are normal. No acute bony abnormality. | | | Alignment is stable and within normal limits. Surgical drain | | | posteriorly. No acute abnormalities in the adjacent soft tissues. | | | IMPRESSION - Postop L2-L5 posterior pedicle screw and marilia and | | | interbody fusion. Dictated and Signed by: Andrea Donato MD | | | Electronically signed: 06/24/2016 8:14 AM | | + + + + + | Procedure Note | + + | Victor M Alejo Results In - 06/24/2016 8:17 AM PST LUMBAR SPINE: 06/23/2016 6:00 PM | | | | CLINICAL HISTORY: post op lumbar surgery | | | | COMPARISON: 12/06/2015 | | | | FINDINGS: AP and crosstable lateral views of lumbar spine. | | | | Posterior pedicle screw and marilia and interbody fusion has been performed from | | L2-L5. Fixation components appear in appropriate position and configuration. | | Vertebral body heights are normal. No acute bony abnormality. Alignment is | | stable and within normal limits. Surgical drain posteriorly. | | | | No acute abnormalities in the adjacent soft tissues. | | | | IMPRESSION - Postop L2-L5 posterior pedicle screw and marilia and interbody fusion. | | | | Dictated and Signed by: Andrea Donato MD | | Electronically signed: 06/24/2016 8:14 AM | + + + +---------+ + + | Performing | Address | City/State/[facility] | Phone Number | | Organization | | | | + +---------+ + + | [facility] | | | | + +---------+ + + FL C-Arm Stats No Charge (06/23/2016 4:49 PM PST) + + | Specimen | + + | | + + + + + | Narrative | Performed At | + + + | No Radiologist interpretation, please see Chart Review. | [facility] | + + + + +---------+ + + | Performing | Address | City/State/Zipcode | Phone Number | | Organization | | | | + +---------+ + + | [facility] | | | | + +---------+ + + Type and Screen (06/23/2016 10:40 AM PST) + + + + + + | Component | Value | Ref Range | Performed | Pathologist | | | | | At | Signature | + + + + + + | ABO | O | | [facility] | | | | [facility] | | | [facility] - | | | | | | [facility] BANK | | + + + + + + | Rh Type | Positive | | [facility] | | | | | [facility] | | [facility] | | | | | [facility] - | | | | | | [facility]OD BANK | | + + + + + + | Antibody | Negative | | [facility] | | | Screen | | | [facility] | | | | | | [facility] | | | | | | [facility] - | | | | | | BLOOD BANK | | + + + + + + + + | Specimen | + + | Blood specimen | | (specimen) | + + + + + + + | Performing | Address | City/State/Zipcode | Phone Number | | Organization | | | | + + + + + | [facility] | [address] | [place] | | | [facility] | | [address] | | | - BLOOD BANK | | | | + + + + + documented in this encounter Visit Diagnoses + + | Diagnosis | + + | Scoliosis, unspecified scoliosis type, unspecified spinal region | + + documented in this encounter Administered Medications + +--------+ +--------+------+ + | Medication Order | MAR | Action | Dose | Rate | Site | | | Action | Date | | | | + +--------+ +--------+------+ + | bupivacaine 0.25%-EPINEPHrine | Given | 06/23/20 | 30 mLs | | Surgical | | 1:200,000 (PF) injection PRN, | | 16 1:52 | | | Site | | Starting 06/23/16 at 1352, | | PM PST | | | | | Intra-op | | | | | | + +--------+ +--------+------+ + +---+---+ | | | +---+---+ + +-------+ +--------+---+ + | ropivacaine (NAROPIN) 2 mg/mL | Given | 06/23/20 | 60 mLs | | Surgical | | (0.2%) injection PRN, Starting | | 16 2:52 | | | Site | | 06/23/16 at 1452, Intra-op | | PM PST | | | | + +-------+ +--------+---+ + +---+---+ | | | +---+---+ documented in this encounter
--- OUTSIDE RECORDS SUMMARY | ~2020-01-12 | XMS | Encounter Summary ---
Demographics + + + | Address | [address] | | | [place] [address] | + + + | Home Phone | | + + + | Preferred Language | Unknown | + + + | Marital Status | | + + + | Sikh Affiliation | Unknown | + + + | Race | Unknown | + + + | Ethnic Group | Unknown | + + + Author + + + | Author | [facility] | | | and [place] | + + + | Organization | [facility] | | | and [place] [...] Team Providers + +------+ + | Care Ward Nurse Name | Role | Phone | + +------+ + PCP | Unavailable | + +------+ + Encounter Details +--------+ + + + + | Date | Type | Department | Care Team | Description | +--------+ + + + + | 09/06/ | Hospital | [facility] | | | | 1995 | Encounter | [facility] | | | | | | C[facility] [address] | | | | | | [place] | | | | | | [address] | | | | | | [phone] | | | +--------+ + + + [...]
--- OUTSIDE RECORDS SUMMARY | ~2020-01-12 | XMS | Encounter Summary ---
Demographics + + + | Address | [address] | | | [place] [address] | + + + | Home Phone | | + + + | Preferred Language | Unknown | + + + | Marital Status | | + + + | Confucianist Affiliation | Unknown | + + + | Race | Unknown | + + + | Ethnic Group | Unknown | + + + Author + + + | Author | [facility] | | | and [place] | + + + | Organization | [facility] | | | and [...] Team Providers + +------+ + | Care Cooker Sulfate Name | Role | Phone | + +------+ + | Bethany Donato | PCP | | + +------+ + Encounter Details +--------+ + + + + | Date | Type | Department | Care Team | Description | +--------+ + + + + | 12/25/ | Abstract | [facility] | Anjum Carter, | | | 2015 | | NEUROSURGERY [address] | DO [address] | | | | | [address] | [address] [place], [place] | | | | | [place] | [address] | | | | | [address] | | | | | | [phone] | | | +--------+ + + + + Social History + + + +--------+------+ | Tobacco Use | Types | Packs/Day | Years | Date | | | | | Used | | + + + +--------+------+ | Former Smoker | Cigarettes | | | | + + + +--------+------+ + +---+---+---+ | Smokeless Tobacco: | | [...]
--- OUTSIDE RECORDS SUMMARY | ~2020-01-12 | XMS | Clinical Summary ---
Demographics + + + | Address | [address] | | | [place] [address] | + + + | Home Phone | | + + + | Preferred Language | Unknown | + + + | Marital Status | | + + + | Orthodoxy Affiliation | Unknown | + + + | Race | Unknown | + + + | Ethnic Group | Unknown | + + + Author + + + | Author | [facility] | | | and [place] | + + + | Organization | [facility] | | | and [place] [...] Team Providers + +------+ + | Care Flocculator Operator Name | Role | Phone | + +------+ + | Pcp, Prov Inactive | PCP | | + +------+ + Allergies No Known Allergies Medications + + + +---------+------+------+-------+ | Medication | Sig | Dispensed | Refills | Star | End | Statu | | | | | | t | Date | s | | | | | | Date | | | + + + +---------+------+------+-------+ | mirabegron | Take 1 tablet by | | 0 | 11/1 | | Activ | | (MYRBETRIQ) 50 mg ER | mouth daily. | | | 6/20 | | e | | tablet | | | | 17 | | | + + + +---------+------+------+-------+ Active Problems + + + | Problem | Noted Date | + + + | Mixed incontinence | 01/11/2017 | + + + | OAB (overactive bladder) | 01/11/2017 | + + + | H/O Hysterectomy | 06/23/2016 | + + + | Neurogenic claudication - Jun 2016 | 06/23/2016 | + + + | Scoliosis of lumbar spine | 06/23/2016 | + + + | Former smoker - Quit 2014 | 06/23/2016 | + + + | History of participation in smoking cessation counseling | | + + + | Continuous leakage of urine | | + + + | Radiculopathy, lumbar region | | + + + | History of hepatitis C | | + + + | Arthritis | | + + + | Vaginal wall prolapse | | + + + | Post hysterectomy menopause | | + + + | Pharyngitis | | + + + | Carpal tunnel syndrome of right wrist | | + + + | Low back pain | | + + + | Lumbar disc narrowing | | + + + | Recurrent UTI | | + + + | Blue dome cyst (a component of fibrocystic breast disease) | | + + + | Extremity cyanosis | | + + + | Cardiac murmur | | + + + Family History + + +------+ + | Medical History | Relation | Name | Comments | + + +------+ + | Heart disease | Brother | | | + + +------+ + | No known problems | Child | | | + + +------+ + | No known problems | Father | | | + + +------+ + | Cancer | Mother | | | + + +------+ + | No known problems | Sister | | | + + +------+ + + +------+ + + | Relation | Name | Status | Comments | + +------+ + + | Brother | | Alive | | + +------+ + + | Brother | | Alive | | + +------+ + + | Brother | | | | + +------+ + + | Child | | Alive | | + +------+ + + | Child | | Alive | | + +------+ + + | Child | | | | + +------+ + + | Father | | | | + +------+ + + | Mother | | Alive | | + +------+ + + | Sister | | Alive | | + +------+ + + | Sister | | | | + +------+ + + Social History + + + [...] on file | | + + + Last Filed Vital Signs + + + + + | Vital Sign | Reading | Time Taken | Comments | + + + + + | Blood Pressure | 122/77 | 09/22/2016 3:16 PM | | | | | PDT | | + + + + + | Pulse | 108 | 05/20/2017 8:44 AM | | | | | PST | | + + + + + | Temperature | 36.4 C (97.5 F) | 06/25/2016 7:16 AM | | | | | PST | | + + + + + | Respiratory Rate | 16 | 09/22/2016 3:16 PM | | | | | PDT | | + + + + + | Oxygen Saturation | 98% | 06/25/2016 7:16 AM | | | | | PST | | + + + + + | Inhaled Oxygen | - | - | | | Concentration | | | | + + + + + | Weight | 53.6 kg (118 lb 1.6 | 05/20/2017 8:44 AM | | | | oz) | PST | | + + + + + | Height | 160 cm (5' 3") | 05/20/2017 8:44 AM | | | | | PST | | + + + + + | Body Mass Index | 20.92 | 05/20/2017 8:44 AM | | | | | PST | | + + + + + Plan of Treatment + + +-------+ + | Health Maintenance | Due Date | Last | Comments | | | | Done | | + + +-------+ + | Vaccine: | | | | | Dtap/Tdap/Td (1 - | 8 | | | | Tdap) | | | | + + +-------+ + | Vaccine: Zoster (1 | | | | | of 2) | 9 | | | + + +-------+ + | Breast Cancer | | | | | Screening | 4 | | | + + +-------+ + | Vaccine: Influenza | | | | | (#1) | 0 | | | + + +-------+ + Implants + +--------+--------+ +--------+--------+--------+ | Implanted | Type | Area | Manufacture | Device | Shelf | Model | | | | | r | | Expira | / | | | | | | Identi | tion | Serial | | | | | | fier | Date | / Lot | + +--------+--------+ +--------+--------+--------+ | Cage Xl Wide 10deg [id number] - | Generi | Right: | NUVASIVE - | | | [id number] | | [id number]: Qty: 2 on | c | Spine | NVSV | | | 0 / / | | 06/23/2016 by Anjum Carter | | | | | | | | DO Kristal at [facility] | | Lumbar | | | | | | [facility] | | | | | | | + +--------+--------+ +--------+--------+--------+ | Imp Spn Spcr Xlw 10d [id number] | Generi | Right: | NUVASIVE - | | | [id number] | | - [id number]: Qty: 1 | c | Spine | NVSV | | | 5 / / | | on 06/23/2016 by Emma | | | | | | | | Anjum Giraldo DO at [facility] | | Lumbar | | | | | | [facility] | | | | | | | + +--------+--------+ +--------+--------+--------+ | Geovanny Sextant Ccm [id number] - | Generi | Right: | [employer] - | | | [id number] | | [id number]: Qty: 2 on | c | Spine | MEDT | | | [id number] / | | 06/23/2016 by Anjum Carter | | | | | | / | | DO Kristal at [facility] | | Lumbar | | | | | | [facility] | | | | | | | + +--------+--------+ +--------+--------+--------+ | Graft Infuse Bone Kit Xxs - | Graft | Right: | SOFAMOR | | 06/03/ | [id number] | | [id number]: Qty: 1 on | | Spine | DANEK - DIV | | 2016 | 0 / | | 06/23/2016 by Anjum Carter | | | [employer] | | | /[id number] | | ADO at [facility] | | Lumbar | - SFDK | | | [id number] | | [facility] | | | | | | | + +--------+--------+ +--------+--------+--------+ | Graft Infuse Bone Kit Xs - | Graft | Right: | SOFAMOR | | 05/27/ | [id number] | | [id number]: Qty: 1 on | | Spine | DANEK - DIV | | 2016 | 0 / | | 06/23/2016 by Anjum Carter | | | [employer] | | | /[id number] | | ADO at [facility] | | Lumbar | - SFDK | | | [id number] | | [facility] | | | | | | | + +--------+--------+ +--------+--------+--------+ | Putty Becket 10cc Dbm - | Graft | Right: | [employer] - | | 01/20/ | [id number] | | [id number]: Qty: 1 on | | Spine | MEDT | | 2018 | | | 06/23/2016 by Anjum Carter | | | | | | /[id number] | | DO Kristal at [facility] | | Lumbar | | | | [id number] | | [facility] | | | | | | / | + +--------+--------+ +--------+--------+--------+ | Putty Becket 5c Dbm - | Graft | Tripper | [employer] - | | 02/20/ | [id number] | | [id number]: Qty: 1 | | ior: | MEDT | | 2018 | [id number] | | on 06/23/2016 by Emma, | | Spine | | | | [id number] | | Anjum Giraldo DO at [facility] | | Lumbar | | | | / | | [facility] | | | | | | | + +--------+--------+ +--------+--------+--------+ | Screw 4.75 Xtb Fabio Mas | Screw | Right: | [employer] - | | | [id number] | | 5.5x50 - [id number]: | | Spine | MEDT | | | [id number] | | Qty: 4 on 06/23/2016 by | | | | | | / / | | Anjum Carter DO at [facility] | | Lumbar | | | | | | [facility] | | | | | | | | [facility] | | | | | | | + +--------+--------+ +--------+--------+--------+ | Screw 4.75 Xtb Fabio Mas | Screw | Right: | [employer] - | | | [id number] | | 6.5x45 - [id number]: | | Spine | MEDT | | | [id number] | | Qty: 2 on 06/23/2016 by | | | | | | / / | | Anjum Carter DO at [facility] | | Lumbar | | | | | | [facility] | | | | | | | | [facility] | | | | | | | + +--------+--------+ +--------+--------+--------+ | Screw Set Slra Perc Ti 4.75 - | Screw | Right: | [employer] - | | | [id number] | | [id number]: Qty: 8 | | Spine | MEDT | | | 0 / / | | on 06/23/2016 by Emma, | | | | | | | | Anjum Giraldo DO at [facility] | | Lumbar | | | | | | [facility] | | | | | | | + +--------+--------+ +--------+--------+--------+ | Screw 4.75 Xtb Fabio Mas | Screw | Right: | [employer] - | | | [id number] | | 5.5x55 - [id number]: | | Spine | MEDT | | | [id number] | | Qty: 2 on 06/23/2016 by | | | | | | / / | | Anjum Carter, at [facility] | | Lumbar | | | | | | [facility] | | | | | | | | [facility] | | | | | | | + +--------+--------+ +--------+--------+--------+ + +--------+--------+ +--------+--------+--------+ | Explanted | Type | Area | Manufacture | Device | Shelf | Model | | | | | r | | Expira | / | | | | | | Identi | tion | Serial | | | | | | fier | Date | / Lot | + +--------+--------+ +--------+--------+--------+ | Geovanny Sextant Ccm [id number] - | Generi | Right: | [employer] - | | | [id number] | | [id number]: Qty: | c | Spine | MEDT | | | [id number] / | | [id number]: Qty: 1 on | | | | | | / | | 06/23/2016 by Anjum Carter | | Lumbar | | | | | | DO Kristal at [facility] | | | | | | | | [facility] | | | | | | | + +--------+--------+ +--------+--------+--------+ Results Not on filefrom Last 3 Months Insurance + +--------+ +--------+ +---------+--------+ | Payer | Benefi | Subscriber | Effect | Phone | Address | Type | | | t Plan | ID | wilder | | | | | | / | | Dates | | | | | | Group | | | | | | + +--------+ +--------+ +---------+--------+ | [employer] | [employer] | [id number] | | [phone] | | Medica | | MEDICAID HMO | HEALTH | | [phone] | 1 | | id | | | MDCD | | esent | | | | | | [place]MO [place] | | | | | | + +--------+ +--------+ +---------+--------+ + +--------+ +--------+ + + | Guarantor Name | Accoun | Relation to | Date | Phone | Billing Address | | | t Type | Patient | of | | | | | | | | | | + +--------+ +--------+ + + | Yovany Jackson | Person | Self [birth year] | [address] | | | al/Fam | | 1960 | [phone] | [place] [address] | | | annette | | | 9 (Home) | | + +--------+ +--------+ + + Advance Directives + + + + + | Type | Date Recorded | Patient | Explanation | | | | Horse Race Timer | | + + + + + | Power of | | | | | Consultant Dietitian | | | | + + + + + | Advance | 06/23/2016 | | | | Directive | 12:47 PM | | | + + + + + + + + + + | Code Status | Date | Date | Comments | | | Activated | Inactivated | | + + + + + | Full Code | 06/23/2016 | 06/25/2016 | | | | 6:30 PM | 3:53 PM | | + + + + +
--- OUTSIDE RECORDS SUMMARY | ~2020-01-12 | XMS | Encounter Summary ---
Demographics + + + | Address | [address] | | | [place] [address] | + + + | Home Phone | | + + + | Preferred Language | Unknown | + + + | Marital Status | | + + + | Mandaeism Affiliation | Unknown | + + + | Race | Unknown | + + + | Ethnic Group | Unknown | + + + Author + + + | Author | [facility] | | | and Rikyana | + + + | Organization | [facility] [...] Team Providers + +------+ + | Care Government Relations Analyst Name | Role | Phone | + +------+ + | Bethany Donato | PCP | | + +------+ + Reason for Visit + +--------+ + | Reason | Onset | Comments | | | Date | | + +--------+ + | Surgery Appointment | 06/19/ | Reminder | | | 2015 | | + +--------+ + Encounter Details +--------+ + + + + | Date | Type | Department | Care Team | Description | +--------+ + + + + | 06/19/ | Telephone | [facility] | Anjum Carter, | Surgery Appointment | | 2016 | | NE[address]UR[address]ERY [address] | DO [address] | (Reminder ) | | | | [address] | [address] [place], [place] | | | | | [place], [place] | [id number] | | | | | [address] | | | | | | [phone] | | | +--------+ + + + [...] Encounter - Viktoriya Leal Cert MA - 06/23/2016 8:48 AM PSTPer Marline in SDS: got in contact with Yovany and she is coming in earlier to check in for surgery VIKTORIYA LEAL elephone Viktoriya Abraham Cert MA - 06/23/2016 8:27 AM PSTVm left for Yovany to let her know th at her check in time for surgery has changed from 12pm to 1015am. I asked for a call back a s soon as she got my message VIKTORIYA LEAL elephone Viktoriya Abraham Cert MA - 06/22/2016 11:19 AM PSTSurgical information relayed to patient ROCCOAugustin Danae LEAL elephone Viktoriya Abraham Cert MA - 06/19/2016 10:49 AM PSTAll presurgical check-in instructions gi mikel Surgery date: 06/23/2016 Check-in Time: 12pm (OR Schedule states procedure start time 13:50pm) No solids or liquids after midnight the night before surgery. Follow the cleansing instructions provided beginning the night before surgery after you maria a wer or bathe. No showering the morning of surgery. Please do not wear jewelry, contact lenses, nail qatari (on fingers or toes), or make-up to surgery check-in. If you have dentures, hearing aids, or glasses please bring the cases with you to check-in. Medications instructions: None Surgical Admit Anticipated Disposition reviewed and correct: "Yes Confirmation of procedure/approval: "Yes". left for Yovany requesting a call back documented in this encounter Plan of Treatment Not on filedocumented as of this encounter Visit Diagnoses Not on filedocumented in this encounter
--- OUTSIDE RECORDS SUMMARY | ~2020-01-12 | XMS | Encounter Summary ---
Demographics + + + | Address | [address] | | | [place] [address] | + + + | Home Phone | | + + + | Preferred Language | Unknown | + + + | Marital Status | | + + + | Quaker Affiliation | Unknown | + + + | Race | Unknown | + + + | Ethnic Group | Unknown | + + + Author + + + | Author | [facility] | | | and Rikyana | + + + | Organization | [facility] | | | and [...] Team Providers + +------+ + | Care Machine Hamper Maker Name | Role | Phone | + +------+ + | Bethany Donato | PCP | | + +------+ + Reason for Visit + + + | Reason | Comments | + + + | Pre-op Exam | Surgery scheduled 06/23/2016 | + + + Encounter Details +--------+---------+ + + + | Date | Type | Department | Care Team | Description | +--------+---------+ + + + | 06/15/ | Office | [facility] | José Tabares | Lumbar radiculopathy | | 2015 | Visit | NEUR[address]URGERY [address] | [place] [address] | (Primary Dx); | | | | [address] | [address] | Lumbar spinal | | | | [place] | [place] | stenosis | | | | [address] | [id number] | | | | | [phone] | | | +--------+---------+ + + + [...] + + + | Blood Pressure | 119/86 | 06/15/2016 2:57 PM | | | | | PST | | + + + + + | Pulse | 88 | 06/15/2016 2:57 PM | | | | | PST | | + + + + + | Temperature | - | - | | + + + + + | Respiratory Rate | - | - | | + + + + + | Oxygen Saturation | - | - | | + + + + + | Inhaled Oxygen | - | - | | | Concentration | | | | + + + + + | Weight | 54 kg (119 lb) | 06/15/2016 2:57 PM | | | | | PST | | + + + + + | Height | 160 cm (5' 3") | 06/15/2016 2:57 PM | | | | | PST | | + + + + + | Body Mass Index | 21.08 | 06/15/2016 2:57 PM | | | | | PST | | + + + + + documented in this encounter Patient Instructions Patient Instructions José Tabares PA-C - 06/15/2016 3:37 PM PSTPlease remember n ot to take any anti-inflammatories within 7 days of surgery. This includes ibuprofen, Motri n, Advil, aspirin, naproxen, and Aleve. You may have a small glass of water on the morning of surgery to take your normal morning medications. Otherwise, nothing to eat or drink afte r midnight. If you have any change in your health status, please call and let us know. Last ly, If you have any questions, please feel free to give our office a call. Otherwise, we wi ll see you on the morning of surgery. documented in this encounter Progress Notes José Tabares PA-C - 06/15/2016 4:36 PM PSTFormatting of this note might be diffe rent from the original. José Tabares PA-C [address] [facility], [address] [place], [place] [id number] FAX: NEUROSURGERY HISTORY AND PHYSICAL EXAMINATION CHIEF COMPLAINT: Chief Complaint Patient presents with Pre-op Exam Surgery scheduled 06/23/2016 HISTORY OF PRESENT ILLNESS: The patient was seen in office today for her preoperative appo intment. She is scheduled for a L2-L5 XLIF on 06/23. She states that her pain is been abou t the same since her previous office visit. She still complains of pain throughout her low back that extends down her buttocks. . She denies any shortness of breath or chest pain. S he denies any fever or chills.She has no open sores on her body and has not had any antibio tics recently. The PCP has seen her and they have cleared her for surgery. The patient is a 55 y.o. female with the complaint of back symptoms that began many years a go. The patient describes insidious onset, but progression since slipping and falling on th e ice in July of 2013. The symptoms have been rapidly worsening - so much so that she benz d to quit her job due to back and leg pain. She rates the pain as severe. The symptoms are frequent, daily. She describes the pain as aching and throbbing. The patient describes leg symptoms that occur on right side. The leg symptoms account for greater than or equal to 50% of her symptoms. The leg symptoms are intermittent and the sym ptoms travels from the [facility] over the top and side of her right leg. The patient also descri bes right leg weakness. She can only walk [...] Laterality Date Hysterectomy 1989 Tubal ligation 1979 Colonoscopy Jean CURRENT MEDICATIONS: No current outpatient prescriptions on file. No current facility-administered medications for this visit. ALLERGIES: No Known Allergies SOCIAL HISTORY: The patient reports that she quit smoking about 22 months ago. Her smoking use included Ci garettes. She quit after 4 years of use. She has never used smokeless tobacco. She reports t hat she drinks alcohol. She reports that she does not use illicit drugs. [...] no rheumatoid arthritis. PHYSICAL EXAMINATION: Blood pressure 119/86, pulse 88, height 1.6 m (5' 3"), weight 53.978 kg (119 lb). Body mass index is 21.09 kg/(m^2). GENERAL: Yovany Jackson is in no acute distress with unlabored respirations. The pat ieeleazar does appear uncomfortable throughout the exam today. [...] and without palpable masses. The patient is notob agustin. SPINE: There is no tenderness in the midline of the cervical or thoracic spine. There is n o major palpable deformity of the spine. The lumbar spine shows there is tenderness in the midline of the L2, L3, L4, L5 levels. To palpation, there is signficant bilateral myofascial tenderness. EXTREMITIES: No cyanosis, clubbing, or edema. Distal pulses are palpable. NEUROLOGICAL EXAM: MENTAL STATUS: The patient is awake, alert, and oriented. She follows simple and complex commands. Her speech is fluent, she comprehends speech well, and she repeats well. She has no apparent deficits with short or emt intermediate memory. CRANIAL NERVES: II: Acuity is intact. Dye are full to confrontation. III, IV, : The pupils are reactive. Extraocular movements are intact. No ptosis is note d. V: Facial sensation is intact and symmetric. [...] Intrinsics 5 5 Ulnar Intrinsics 5 5 Steel Loader Strength 5 5 Hip Flexion 4 5 [...] demonstrates diffuse scoliosis and kyphosis. There is s pondylolisthesis L3-4. There is severe lateral recess stenosis L3-4 and L4-5. Lumbar flexion and extension views show spondylolisthesis L3-4 and L4-5 with dynamic instab ility. There is scoliosis L2-5. ASSESSMENT: NEUROSURGICAL DIAGNOSES: Encounter Diagnoses Name Primary? Lumbar radiculopathy Yes Lumbar spinal stenosis GENERAL DIAGNOSES: Past Medical History Diagnosis Date History of participation in smoking cessation counseling Continuous leakage of urine Radiculopathy, lumbar region History of hepatitis C Arthritis Vaginal wall prolapse Post hysterectomy menopause Pharyngitis Carpal tunnel syndrome of right wrist Low back pain Lumbar disc narrowing Frequent UTI Blue dome cyst Extremity cyanosis (HCC) Cardiac murmur PLAN: Today we discussed the upcoming surgery and answered any questions she had about the proced ure. We discussed the risks, alternatives, and benefits to surgical intervention with Ms. Jackson in clinic. These risks included but were not limited to , stroke, heart attack, numbn ess, weakness, paralysis, failure of fusion, failure of hardware, subsidence, adjacent segme nt degeneration, cerebrospinal fluid leak, bleeding, infection, injury to surrounding tissue s and organs, injury from positioning, injury to the nerves, difficulty with breathing, diff iculty with swallowing, difficulty with voice change, and [...] that although some patients may obtain 100% sym ptom relief, it is realistic to anticipate that some symptoms will continue postoperatively despite a successful surgery. We also discussed that there is no guarantee that surgery will provide improvement in her c ondition, and indeed may even worsen the symptoms. We also discussed that in the course of the procedure the operative plan may be altered to include more, less, or different levels d epending upon findings in order to provide her [...] improve the probability and rate of fusion. She would like to proceed with her scheduled procedure on 06/23. ELECTRONICALLY SIGNED BY: José Tabares PA-C, 06/15/2016 16:36 Ro Robles RN - 06/15/2016 3:48 PM PSTPatient in office for pre op appointment. Patient not curre ntly taking any medications that need to be stopped prior to surgery. Patient advised at thi s time to avoid NSAIDs 7 days prior to surgery. Patient verbalized understanding. All questi ons answered at this time. documented in this en counter Plan of Treatment Not on filedocumented as of this encounter Visit Diagnoses + + | Diagnosis | + + | Lumbar radiculopathy - Primary Thoracic or lumbosacral neuritis or radiculitis, | | unspecified | + + | Lumbar spinal stenosis Spinal stenosis, lumbar region, without neurogenic | | claudication | + + documented in this encounter
--- OUTSIDE RECORDS SUMMARY | ~2020-01-12 | XMS | Encounter Summary ---
Demographics + + + | Address | [address] | | | [place] [address] | + + + | Home Phone | | + + + | Preferred Language | Unknown | + + + | Marital Status | | + + + | Buddhist Affiliation | Unknown | + + + | Race | Unknown | + + + | Ethnic Group | Unknown | + + + Author + + + | Author | [facility] | | | and Rikyana | + + + | Organization | [facility] | [...] Team Providers + +------+ + | Care Hair Baler Name | Role | Phone | + +------+ + | Bethany Donato | PCP | | + +------+ + Reason for Referral Diagnostic/Screening (Urgent) +--------+--------+ + + + + | Status | Reason | Specialty | Diagnoses / | Referred By | Referred To | | | | | Procedures | Contact | Contact | +--------+--------+ + + + + | Closed | | Radiology | Diagnoses | Sucharda, | [facility] | | | | | | Todd E, | [address] | | | | | Radiculopath | PA-C [address] | [place], | | | | | y, | [address] | [place] | | | | | unspecified | [address] | [address] | | | | | spinal | [place], | Phone: | | | | | region S/P | [place] [address] | [phone] | | | | | lumbar | Phone: | Fax: | | | | | fusion | [phone] | [phone] | | | | | Procedures | Fax: | | | | | | MRI Lumbar | [phone] | | | | | | Spine wo | | | | | | | Contrast | | | +--------+--------+ + + + + Reason for Visit +---------+ + | Reason | Comments | +---------+ + | Post Op | 3W PO | +---------+ + Encounter Details +--------+---------+ + + + | Date | Type | Department | Care Team | Description | +--------+---------+ + + + | 07/14/ | Office | [facility] | Todd Montanez, | Radiculopathy, | | 2017 | Visit | NEUROSURGERY [address] | PA-C [address] | unspecified spinal | | | | [address] | [address] [place] | region (Primary Dx); | | | | [place], [place] | [place] [address] | S/P lumbar fusion; | | | | [address] | [phone] | Lumbar radiculopathy | | | | [phone] | | | +--------+---------+ + + + [...] + + + | Blood Pressure | 131/92 | 07/14/2016 12:42 PM | | | | | PST | | + + + + + | Pulse | 111 | 07/14/2016 12:42 PM | | | | | PST [...] + + + + | Weight | 51.3 kg (113 lb) | 07/14/2016 12:42 PM | | | | | PST | | + + + + + | Height | 160 cm (5' 3") | 07/14/2016 12:42 PM | | | | | PST | | + + + + + | Body Mass Index | 20.02 | 07/14/2016 12:42 PM | | | | | PST [...] encounter Progress Notes Todd Montanez PA - 07/14/2016 12:52 PM PSTFormatting of this note might be different f rom the original. JOCELINE Tan [address] [facility], [address] [place] [address] FAX: NEUROSURGERY FOLLOW-UP CHIEF COMPLAINT: Chief Complaint Patient presents with Post Op 3W PO HISTORY OF PRESENT ILLNESS: The patient is a 55 y.o. female that had a lumbar fusion for b ack and right leg pain around 3 weeks ago. She returns and overall is doing poorly. The pa myra complained of right leg pain prior to surgery. Postoperatively, in the hospital, junie ent has not appreciated significant relief and right leg pain but did not feel that it was a ny worse. Since leaving the hospital, she has noticed progressive increasing right leg pain that is now constant and severe. She states her back pain is completely gone and she is gr ateful for this. She had called our office about one week ago with the same problem and she was prescribed a Medrol Dosepak. This has not helped her symptoms at all. She ran out of her on pain medication and for a few days was taking either OxyContin or oxycodone from her daughter and/or her daughter's friend. She thinks it was oxycodone but does not remember th e dose. She did get some relief with this. Last week, when she picked up her Medrol Dosepa k she also picked up 30 tablets of oxycodone that was ordered by Yamil but did not find this to be strong enough. She denies being able to get even 2 hours of sleep and reports crying all night long. Patient reports hypersensitivity to her skin and finds even the weight of h er sheets to be painful. She has got mild relief with the use of topical OTC lanocaine. Willis trenton describes the pain as a fiery sharp pain. This seems to affect her entire leg and does no t appear to be dermatomal in nature as she describes it. CURRENT MEDICATIONS: Current Outpatient Prescriptions Medication Sig Dispense Refill dexamethasone (DECADRON) 2 MG tablet 2 MG PO TID x 5 DAYS, THEN 2 MG PO BID x 5 DAYS, T HEN 2 MG PO DAILY x 5 DAYS 30 tablet 0 diazePAM (VALIUM) 5 mg tablet Take 1 tablet by mouth every 6 hours as needed. 90 tablet 0 gabapentin (NEURONTIN) 300 mg capsule Take 1 capsule by mouth 3 times daily. 90 capsule 11 HYDROcodone-acetaminophen (NORCO) 10-325 mg per tablet Take 1-2 tablets by mouth every 4 hours as needed for Pain. 120 tablet 0 lactulose 10 g/15 mL solution Take 30 mLs by mouth 2 times daily. For constipation 240 mL 2 oxyCODONE-acetaminophen (PERCOCET) 10-325 mg per tablet Take 1-2 tablets by mouth every 4 hours as needed for Pain. 120 tablet 0 No current facility-administered medications for this visit. ALLERGIES: No Known Allergies SOCIAL HISTORY: The patient reports that she quit smoking about 22 months ago. Her smoking use included Ci garettes. She quit after 4 years of use. She has never used smokeless tobacco. She reports t hat she drinks alcohol. She reports that she does not use illicit drugs. INTERIM PHYSICAL EXAMINATION: Blood pressure 131/92, pulse 111, height 1.6 m (5' 3"), weight 51.256 kg (113 lb), not curr ently . Body mass index is 20.02 kg/(m^2). REVIEW OF SYSTEMS GENERALLY: No fever, no night sweats, no anemia, no fatigue, no recent profound weight ch anges. EYES: No eye problems, no use of corrective lenses, no eye injury, no double vision, no bl indness. EARS, NOSE, AND THROAT: No changes in taste or smell, no hearing difficulty, no ringing in the ears, no ear drainage, no dizziness, no voice changes, no difficulty swallowing, no sig nificant snoring, no sleep apnea, no sinus problems, no major dental work. NEUROLOGICALLY: Please see the review of systems discussed above in the history of present illness. In addition, the patient has numbness and pain of legs, muscle aching, change in walk, back injury. PSYCHIATRIC: No depression, + sleep disorders, no anxiety, no bipolar disorder, no psychot ic episodes. CARDIOVASCULAR: No heart attacks, no heart murmur, no heart fluttering, no chest pain, no ankle swelling. LUNG DISEASE: No shortness of breath, no cough, no tuberculosis, no bloody cough, no asth ma, no emphysema/COPD. GASTROINTESTINAL: No bowel disease, no nausea or vomiting, no rectal bleeding, no constipa tion, no stool incontinence, no liver disease, no gallbladder disease, no abdominal pain, no ulcers. KIDNEY DISEASE: + problems, + urinary frequency, no painful or difficult urination, no inc ontinence. ENDOCRINE: No diabetes, no thyroid disease, no osteopenia or osteoporosis, no breast drain age. SKIN: No breast lumps, no skin changes, no rashes, no itches. HEMATOLOGIC/LYMPHATIC: No enlarged lymph nodes, no easy or unusual bleeding, no personal h istory of cancer. RHEUMATOLOGIC: No joint arthritis, no rheumatoid arthritis. GENERAL: Yovany Jackson is found laying comfortably on the table when I walked in the room. Upon entering patient began to sit up and started moaning and groaning and was moder ately dramatic in her presentation. patient spoke quickly and dramatically with over exagger ated use of her hands. SPINE: The patient s incisions are healing well without drainage, significant erythema, o r discharge. EXTREMITIES: No lower extremity edema. NEUROLOGICAL EXAMINATION: MENTAL STATUS: The patient is awake, alert, and oriented. She follows simple and complex commands MOTOR EXAM: Motor strength is very difficult to evaluate due to patient's significant pain and right leg and inability to tolerate touching of her skin. Plantar/dorsiflexion of her f oot as well as flexion and extension of her knee were poorly tolerated against resistance. SENSORY EXAM: The sensory examination is worsened when compared to the preoperative exam. RADIOGRAPHIC REVIEW: No new x-ray is available at today's visit ASSESSMENT: Encounter Diagnoses Name Primary? Radiculopathy, unspecified spinal region Yes S/P lumbar fusion Lumbar radiculopathy Past Medical History Diagnosis Date History of participation in smoking cessation counseling Continuous leakage of urine Radiculopathy, lumbar region History of hepatitis C Arthritis Vaginal wall prolapse Post hysterectomy menopause Pharyngitis Carpal tunnel syndrome of right wrist Low back pain Lumbar disc narrowing Frequent UTI Blue dome cyst Extremity cyanosis (HCC) Cardiac murmur PLAN: Overall, the patient is doing poorly. The patient is happy that her back pain is gone as t his was a significant component of her overall pain prior to surgery. however, she is quite concerned about the significant increase in pain in her right leg since surgery. I gave the patient a new prescription of Decadron which will be more aggressive steroid jelly atment plan with a longer taper. In addition, we talked about Neurontin. She had taken thi s in the past but quit taking it as she had developed a mental aversion to this after talkin g to her friends. She felt that this was a bad and dangerous drug and it was not giving her relief anyway. I called and spoke with the pharmacist and verified that she was on this. During our discussion with her he did not think that she had taken this. Patient wa s restarted same dose that she was on previously as a starting point but was informed we wou ld likely increase this in 4-5 days. In addition, I'm getting an urgent MRI which I hope to look at her Wednesday. This will Dr. Carter and myself no whether or not there is any observe d explanation on her MRI explaining her severe right leg pain. If not, we would be trying t o treat her pain with pain medication, steroids, and neuromodulation's. If increasing doses of gabapentin are found to be ineffective we may end up starting her on Lyrica. While she is getting her urgent MRI I'm also going to get an x-ray of her lumbar spine. ELECTRONICALLY SIGNED BY: JOCELINE Tan, 07/15/2016 10:36 Sangeetha Albarado assisted me in the cork compounder of this note in my presence today. documented in this encounter Plan of Treatment + +---------+--------+ + + | Name | Type | Priori | Associated Diagnoses | Order Schedule | | | | ty | | | + +---------+--------+ + + | MRI Lumbar Spine wo | Imaging | Routin | Radiculopathy, | Expected: 07/24/2016 | | Contrast | | e | unspecified spinal | (Approximate), | | | | | region S/P lumbar | Expires: 07/13/2017 | | | | | fusion | | + +---------+--------+ + + | XR Lumbar Spine 2 or | Imaging | [facility] | Radiculopathy, | Expected: 07/25/2016 | | 3 Vw | | | unspecified spinal | (Approximate), | | | | | region S/P lumbar | Expires: 07/14/2017 | | | | | fusion Lumbar | | | | | | radiculopathy | | + +---------+--------+ + + documented as of this encounter Procedures + +--------+ + + + | Procedure Name | Priori | Date/Time | Associated Diagnosis | Comments | | | ty | | | | + +--------+ + + + | IMAGING REPORT - | | 07/21/2016 | | Results for this | | EXTERNAL SCAN | | 12:00 AM | | procedure are in the | | | | PST | | results section. | + +--------+ + + + documented in this encounter Results IMAGING REPORT - EXTERNAL SCAN (07/21/2016 12:00 AM PST) + + + | Narrative | Performed At | + + + | Ordered by an | | | unspecified provider. | | + + + documented in this encounter Visit Diagnoses + + | Diagnosis | + + | Radiculopathy, unspecified spinal region - Primary | + + | S/P lumbar fusion Arthrodesis status | + + | Lumbar radiculopathy Thoracic or lumbosacral neuritis or radiculitis, unspecified | + + documented in this encounter
--- OUTSIDE RECORDS SUMMARY | ~2020-01-12 | XMS | Encounter Summary ---
Demographics + + + | Address | [address] | | | [place] [address] | + + + | Home Phone | | + + + | Preferred Language | Unknown | + + + | Marital Status | | + + + | Religion Affiliation | Unknown | + + + | Race | Unknown | + + + | Ethnic Group | Unknown | + + + Author + + + | Author | [facility] | | | and Rikyana | + + + | Organization | [facility] | | | and [...] Team Providers + +------+ + | Care Heat Treatment Technician Name | Role | Phone | + +------+ + PCP | Unavailable | + +------+ + Encounter Details +--------+ + + + + | Date | Type | Department | Care Team | Description | +--------+ + + + + | 04/21/ | Hospital | [facility] | | | | 1993 | Encounter | MED CTR EMERGENCY | | | | | | CENTER [address] | | | | | | [place] | | | | | | [address] | | | | | | [phone] | | | +--------+ + + + [...]
--- OUTSIDE RECORDS SUMMARY | ~2020-01-12 | XMS | Encounter Summary ---
Demographics + + + | Address | [address] | | | [place] [address] | + + + | Home Phone | | + + + | Preferred Language | Unknown | + + + | Marital Status | | + + + | Episcopal Affiliation | Unknown | + + + | Race | Unknown | + + + | Ethnic Group | Unknown | + + + Author + + + | Author | [facility] | | | and Rikyana | + + + | Organization | [facility] | | | and [...] Team Providers + +------+ + | Care Claims Associate Name | Role | Phone | + +------+ + PCP | Unavailable | + +------+ + Encounter Details +--------+ + + + + | Date | Type | Department | Care Team | Description | +--------+ + + + + | 02/21/ | Hospital | [facility] | | | | 1990 | Encounter | MED CTR EMERGENCY | | | | | | CENTER [address] | | | | | | [place] | | | | | | [address] | | | | | | [phone] | | | +--------+ + + + [...]
--- OUTSIDE RECORDS SUMMARY | ~2020-01-12 | XMS | Encounter Summary ---
Demographics + + + | Address | [address] | | | [place] [address] | + + + | Home Phone | | + + + | Preferred Language | Unknown | + + + | Marital Status | | + + + | Orthodoxy Affiliation | Unknown | + + + | Race | Unknown | + + + | Ethnic Group | Unknown | + + + Author + + + | Author | [facility] | | | and Rikyana | + + + | Organization | [facility] | | | and [place] [...] Team Providers + +------+ + | Care Bank Appraiser Name | Role | Phone | + +------+ + | Bethany Donato | PCP | | + +------+ + Encounter Details +--------+ + + + + | Date | Type | Department | Care Team | Description | +--------+ + + + + | 09/22/ | [facility] | [facility] | Anjum Carter, | Spondylolisthesis, | | 2017 | Encounter | MED CTR XRAY [address] | DO [address] | lumbar region; S/P | | | | [place] | [address] [place] | lumbar fusion | | | | [place] [address] | [address] | | | | | [phone] | | | +--------+ + + + [...] as of this encounter Plan of Treatment + +---------+--------+ + + | Name | Type | Priori | Associated Diagnoses | Order Schedule | | | | ty | | | + +---------+--------+ + + | XR Lumbar Spine 2 or | Imaging | Routin | Spondylolisthesis, | 1 Occurrences | | 3 Vw | | e | lumbar region S/P | starting 09/22/2016 | | | | | lumbar fusion | until 09/22/2016 | + +---------+--------+ + + documented as of this encounter Procedures + +--------+ + + + | Procedure Name | Priori | Date/Time | Associated Diagnosis | Comments | | | ty | | | | + +--------+ + + + | XR LUMBAR SPINE 2 OR | Routin | 09/22/2016 | Spondylolisthesis, | Results for this | | 3 VW | e | 4:05 PM | lumbar region S/P | procedure are in the | | | | PDT | lumbar fusion | results section. | + +--------+ + + + documented in this encounter Results XR Lumbar Spine 2 or 3 Vw (09/22/2016 4:05 PM PDT) + + | Specimen | + + | | + + + + + | Narrative | Performed At | + + + | EXAM:XR LUMBAR SPINE 2 OR 3 VW CLINICAL HISTORY: S/p lumbar | [facility] | | fusion COMPARISON: Lumbar spine radiographs dating to June 23, | [facility] | | 2016. FINDINGS: Frontal and lateral views. Posterior and | MEDICAL CENTER | | interbody fusion changes from L2 through L5. Intact hardware. No | - IMAGING | | change in positioning of the interbody graft markers. No change in | | | spinal alignment. No interval compression deformities. | | | IMPRESSION - No radiographic evidence for an interval | | | complication. Dictated and Signed by: Alex Low MD | | | Electronically signed: 09/22/2016 4:26 PM | | + + + + + | Procedure Note | + + | Melo, Rad Results In - 09/22/2016 4:29 PM PDT EXAM:XR LUMBAR SPINE 2 OR 3 VW | | | | CLINICAL HISTORY: S/p lumbar fusion | | | | COMPARISON: Lumbar spine radiographs dating to June 23, 2016. | | | | FINDINGS: Frontal and lateral views. Posterior and interbody fusion changes | | from L2 through L5. Intact hardware. No change in positioning of the interbody | | graft markers. No change in spinal alignment. No interval compression | | deformities. | | | | IMPRESSION - | | | | No radiographic evidence for an interval complication. | | | | Dictated and Signed by: Alex Low MD | | Electronically signed: 09/22/2016 4:26 PM | + + + + + + + | Performing | Address | City/State/Zipcode | Phone Number | | Organization | | | | + + + + + | [facility] | [address] | [place] | [phone] | | [facility] | | [address] | | | - IMAGING | | | | + + + + + documented in this encounter Visit Diagnoses + + | Diagnosis | + + | Spondylolisthesis, lumbar region | + + | S/P lumbar fusion Arthrodesis status | + + documented in this encounter"
--- OUTSIDE RECORDS SUMMARY | ~2020-01-12 | XMS | Encounter Summary ---
Demographics + + + | Address | [address] | | | [place] [address] | + + + | Home Phone | | + + + | Preferred Language | Unknown | + + + | Marital Status | | + + + | Anglican Affiliation | Unknown | + + + | Race | Unknown | + + + | Ethnic Group | Unknown | + + + Author + + + | Author | [facility] | | | and [place]yana | + + + | Organization | [facility] | | | [...] Team Providers + +------+ + | Care Assembly Line Supervisor Name | Role | Phone | + +------+ + | Bethany Donato | PCP | | + +------+ + Reason for Visit + + + | Reason | Comments | + + + | Back Pain | lower back | + + + Evaluate & Treat (Routine) +--------+--------+ + + + + | Status | Reason | Specialty | Diagnoses / | Referred By | Referred To | | | | | Procedures | Contact | Contact | +--------+--------+ + + + + | Closed | | Neurosurgery | Diagnoses | Tanmay, | Emma, | | | | | | Bethany Alvarez, | Anjum Giraldo DO | | | | | 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[address] | [address] | | | | | y, lumbar | [address] | [address] | | | | | region | [place], | [place] | | | | | Procedures | [place] [address] | [address] Phone: | | | | | [place] OFFICE | Phone: | [phone] | | | | | CONSULTATION | [phone] | Fax: | | | | | NEW/ESTAB | Fax: | [phone] | | | | | PATIENT 58 | [phone] | | | | | | MIN | | | +--------+--------+ + + + + Encounter Details +--------+---------+ + + + | Date | Type | Department | Care Team | Description | +--------+---------+ + + + | 02/24/ | Office | [facility] | Anjum Carter, | Scoliosis of lumbar | | 2016 | Visit | NEUROSURGERY [address] | DO [address] | spine, unspecified | | | | [address] | [address] [place], [place] | scoliosis type | | | | [place], [place] | [address] | (Primary Dx); | | | | [address] | | Spondylolisthesis of | | | | [phone] | | lumbar region; | | | | | | Postural kyphosis of | | | | | | lumbar region; | | | | | | Lumbar stenosis; | | | | | | Lumbar | | | | | | radiculopathy; | | | | | | Chronic midline low | | | | | | back pain with | | | | | | right-sided | | | | | | sciatica; Neurogenic | | | | | | claudication | +--------+---------+ + + + Social History + + + +--------+ + | Tobacco Use | Types | Packs/Day | Years | Date | | | | | Used | | + + + +--------+ + | Former Smoker | Cigarettes | | | Quit: 08/16/2014 | + + + [...] + + + | Blood Pressure | 109/71 | 02/25/2016 9:25 AM | | | | | PDT | | + + + + + | Pulse | 70 | 02/25/2016 9:25 AM | | | | | PDT | | + + + + + | Temperature | - | - | | + + + + + | Respiratory Rate | 16 | 02/25/2016 9:25 AM | | | | | PDT | | + + + + + | Oxygen Saturation | - | - | | + + + + + | Inhaled Oxygen | - | - | | | Concentration | | | | + + + + + | Weight | 51.7 kg (114 lb) | 02/25/2016 9:25 AM | | | | | PDT | | + + + + + | Height | 160 cm (5' 3") | 02/25/2016 9:25 AM | | | | | PDT | | + + + + + | Body Mass Index | 20.19 | 02/25/2016 9:25 AM | | | | | PDT | | + + + + + documented in this encounter Patient Instructions Patient Instructions Anjum Carter DO - 02/25/2016 9:59 AM PDTPlease follow-up with you r primary care physician for preoperative clearance. Please present for surgery when scheduled. documented in this encounter Progress Notes Anjum Carter DO - 02/25/2016 10:00 AM PDTFormatting of this note might be different fro m the original. Anjum Carter DO [address] [facility] [address] [place] [address] FAX: NEUROSURGERY HISTORY AND PHYSICAL EXAMINATION CHIEF COMPLAINT: Chief Complaint Patient presents with Back Pain lower back HISTORY OF PRESENT ILLNESS: The patient is a 55 y.o. female with the complaint of back sym ptoms that began many years ago. The patient describes insidious onset, but progression sin ce slipping and falling on the ice in July of 2013. The symptoms have been rapidly worse angelito - so much so that she had [...] and the sym ptoms travels from the [facility] over the top and side [...] no acute distress with unlabored respirations. The steve ieeleazar does appear uncomfortable throughout the exam [...] has no apparent deficits with short or terminal computer operator memory. CRANIAL NERVES: II: Acuity is intact. [...] Intrinsics 5 5 Ulnar Intrinsics 5 5 Principal Software Engineer Strength 5 5 Hip Flexion 4 5 [...] has scoliosis, kyphosis, and spondylolisthesis with severe genna nosis L2-5. This is likely contributing to her back pain, leg pain, leg weakness, and claudi cation. I had a lengthy discussion with the [...] the probability and rate of fusion. She will follow-up with her primary care provider for preoperative clearance and optimizati on prior to presenting for surgery. ELECTRONICALLY SIGNED BY: Anjum Carter DO, 02/25/2016 10:07 documented in this en counter Plan of Treatment Not on filedocumented as of this encounter Visit Diagnoses + + | Diagnosis | + + | Scoliosis of lumbar spine, unspecified scoliosis type - Primary | + + | Spondylolisthesis of lumbar region Acquired spondylolisthesis | + + | Postural kyphosis of lumbar region | + + | Lumbar stenosis Spinal stenosis, lumbar region, without neurogenic claudication | + + | Lumbar radiculopathy Thoracic or lumbosacral neuritis or radiculitis, unspecified | + + | Chronic midline low back pain with right-sided sciatica | + + | Neurogenic claudication Spinal stenosis, lumbar region, with neurogenic claudication | + + documented in this encounter
--- OUTSIDE RECORDS SUMMARY | ~2020-01-12 | XMS | Encounter Summary ---
Demographics + + + | Address | [address] | | | [place] [address] | + + + | Home Phone | | + + + | Preferred Language | Unknown | + + + | Marital Status | | + + + | Mu-Ism Affiliation | Unknown | + + + | Race | Unknown | + + + | Ethnic Group | Unknown | + + + Author + + + | Author | [facility] | | | and [place]yana | + + + | Organization | [facility] | | | and [...] Team Providers + +------+ + | Care Animal Keeper Name | Role | Phone | + +------+ + PCP | Unavailable | + +------+ + Encounter Details +--------+ + + + + | Date | Type | Department | Care Team | Description | +--------+ + + + + | 02/11/ | Hospital | [facility] | | | | 1995 | Encounter | MED CTR EMERGENCY | | | | | | CENTER [address] | | | | | | [place] | | | | | | [address] | | | | | | [phone] | | | +--------+ + + + [...]
--- OUTSIDE RECORDS SUMMARY | ~2020-01-12 | XMS | Encounter Summary ---
Demographics + + + | Address | [address] | | | [place] [address] | + + + | Home Phone | | + + + | Preferred Language | Unknown | + + + | Marital Status | | + + + | Caodaism Affiliation | Unknown | + + + | Race | Unknown | + + + | Ethnic Group | Unknown | + + + Author + + + | Author | [facility] | | | and [place]yana | + + + | Organization | [facility] | | | and [place] [...] Team Providers + +------+ + | Care Awning Maker And Installer Name | Role | Phone | + [...] [address] | [address] [place], [place] | | | | | [place] | [address] | | | | | [address] | | | | | | [phone] | | | +--------+ + + + [...]
--- OUTSIDE RECORDS SUMMARY | ~2020-01-12 | XMS | Encounter Summary ---
Demographics + + + | Address | [address] | | | [place] [address] | + + + | Home Phone | | + + + | Preferred Language | Unknown | + + + | Marital Status | | + + + | Baptist Affiliation | Unknown | + + + | Race | Unknown | + + + | Ethnic Group | Unknown | + + + Author + + + | Author | [facility] | | | and [place]ana | + + + | Organization | [facility] | | | and [place] [...] Team Providers + +------+ + | Care Loan Supervisor Name | Role | Phone | + +------+ + | Bethany Donato | PCP | | + +------+ + Encounter Details +--------+ + + + + | Date | Type | Department | Care Team | Description | +--------+ + + + + | 04/06/ | Orders Only | [facility] | Anjum Carter, | History of | | 2015 | | NEUROSURGERY [address] | DO [address] | participation in | | | | [address] | [address] [place] | smoking cessation | | | | [place] | [address] | counseling (Primary | | | | [address] | | Dx); Continuous | | | | [phone] | | leakage of urine; | | | | | [...] filedocumented as of this encounter Results XR Chest PA and [...] + | [facility] | [address] | [place] | [phone] | | [facility] | | [address] | | | - IMAGING | | | | + + + + + ECG 12 lead (06/15/2016 1:29 PM PST) [...] | | | | AICHA LOWRY MD ([id number]) | | | | | | on [...] 15 | 7 - 18 mg/dL | [facility] | | | | | | [facility] | | | | | | MEDICAL | | | | | | CENTER - | | | | | | LABORATORY | | + + + + + + | Creatinine | 0.97 | 0.60 - 1.30 | [facility] | | | | | mg/dL | [facility] | | | | | | MEDICAL | | | | | | CENTER - | | | | | | LABORATORY | | + + + + + + | eGFR if not | 59 (L)Comment: | >=60 | [facility] | | | | GLOMERULAR FILTRATION | mL/min/1.73m2 | [facility] | | | [facility] | RATE,ESTIMATED | | MEDICAL | | | | mL/min/1.24o1Qugl than | | CENTER - | | [...] | 9.5 | 8.3 - 10.5 | [facility] | | | | | mg/dL | [facility] | | | | | | MEDICAL | | | | | | CENTER - | | | | | | LABORATORY | | + + + + + + | BUN/Creatin | 15.5 | | [facility] | | | ine Ratio | | [...] ST. | [address] | [place], [place] | [phone] | | [facility] | | [address] | | | - LABORATORY | | | | + + + + + PTT (06/15/2016 12:57 PM PST) + +-------+ + + + | Component | Value | Ref Range | Performed | Pathologist | | | | | At | Signature | + +-------+ + + + | aPTT | 32 | 22 - 36 seconds | [facility] | | | | | [...] | + + + + + | [facility] | [address] | [place] | [phone] | | [facility] | | [address] | | | - LABORATORY | | [...] | | Time | | seconds | [facility] | | | | [...] + | [facility] | [address] | [place] | [phone] | | [facility] | | [address] | | | - LABORATORY | | [...] | | | Cells | | | [facility] | | | | | | MEDICAL | | | | | | CENTER - | | | | | | LABORATORY | | + + + + + + | Red Blood | 4.95 | 3.70 - 5.20 | [facility] | | | Cells | | M/uL | [facility] | | | | [...] | Monocytes | | K/uL | [facility] | | | | | | MEDICAL | | | | | | CENTER - | | | | | | LABORATORY | | + + + + + + | Absolute | 0.10 | 0.00 - 0.40 | [facility] | | | Eosinophils | | K/uL | [facility] | | | | | | MEDICAL | | | | | | CENTER - | | | | | | LABORATORY | | + + + + + + | Absolute | 0.00 | 0.00 - 0.10 | [facility] | | | Basophils | | K/uL | [facility] | [...] [address] | [place] | [phone] | | [facility] | | [address] | | | - LABORATORY | | | | + + + + + documented in this encounter Visit Diagnoses + + | Diagnosis | + + | History of participation in smoking cessation counseling - Primary | + + | Continuous leakage of [...]
--- OUTSIDE RECORDS SUMMARY | ~2020-01-12 | XMS | Encounter Summary ---
Demographics + + + | Address | [address] | | | [place] [address] | + + + | Home Phone | | + + + | Preferred Language | Unknown | + + + | Marital Status | | + + + | Latter Day Affiliation | Unknown | + + + | Race | Unknown | + + + | Ethnic Group | Unknown | + + + Author + + + | Author | [facility] | | | and [place]ikyana | + + + | Organization | [facility] | | | and [...] Team Providers + +------+ + | Care Medical Malpractice Paralegal Name | Role | Phone | + +------+ + PCP | Unavailable | + +------+ + Encounter Details +--------+ + + + + | Date | Type | Department | Care Team | Description | +--------+ + + + + | 12/29/ | Hospital | [facility] | Noman Jarvis, | | | 2001 | Encounter | MED CTR GENERIC OP | [address] | | | | | CONV DEPT [address] | [place] | | | | | [place], | [place] [address] | | | | | [place] [address] | [phone] | | | | | [phone] | | | +--------+ + + + [...]
--- OUTSIDE RECORDS SUMMARY | ~2020-01-12 | XMS | Encounter Summary ---
Demographics + + + | Address | [address] | | | [place] [address] | + + + | Home Phone | | + + + | Preferred Language | Unknown | + + + | Marital Status | | + + + | Islam Affiliation | Unknown | + + + | Race | Unknown | + + + | Ethnic Group | Unknown | + + + Author + + + | Author | [facility] | | | and [place] | + + + | Organization | [facility] [...] Team Providers + +------+ + | Care Independent Film Maker Name | Role | Phone | + +------+ + | Bethany Donato | PCP | | + +------+ + Reason for Visit + + + | Reason | Comments | + + + | Follow-up | 3 month PO | + + + Encounter Details +--------+---------+ + + + | Date | Type | Department | Care Team | Description | +--------+---------+ + + + | 09/22/ | Office | [facility] | Anjum Carter, | Spondylolisthesis, | | 2017 | Visit | NEUROSURGERY [address] | DO [address] | lumbar region | | | | [address] | [address] [place], [place] | (Primary Dx); S/P | | | | [place], [place] | [address] | lumbar fusion | | | | [id number] | | | | | | [phone] | | | +--------+---------+ + + + [...] + + + + | Pulse | 109 | 09/22/2016 3:16 PM | | | [...] + + + + | Weight | 49.9 kg (110 lb) | 09/22/2016 3:16 PM | | | | | PDT | | + + + + + | Height | 160 cm (5' 3") | 09/22/2016 3:16 PM | | | | | PDT | | + + + + + | Body Mass Index | 19.49 | 09/22/2016 3:16 PM | | | [...] + + documented as of this encounter Patient Instructions Patient Instructions Anjum Carter DO - 09/22/2016 3:41 PM PDTPlease undergo new x-rays of the lumbar spine in 3 and 9 months. Please follow-up with me as needed. documented in this encounter Progress Notes Anjum Carter DO - 09/22/2016 3:42 PM PDTFormatting of this note might be different fro m the original. Anjum Carter DO [address] [facility], [address] [place] [address] FAX: NEUROSURGERY FOLLOW-UP CHIEF COMPLAINT: Chief Complaint Patient presents with Follow-up 3 month PO HISTORY OF PRESENT ILLNESS: The patient is a 55 y.o. female that had an XLIF L2-5 by me fo r back pain, leg pain, and claudication around 3 months ago . She returns and overall is do ing fairly well. The patient complains of ongoing right leg numbness and weakness, but both are improving. The patient is not still taking narcotics for pain management. The patient has been walking as directed and has tried to remain active. Overall, the patient is pleas ed with her improvement, but is hoping for more after she starts physical therapy. PAST MEDICAL HISTORY: Past Medical History Diagnosis [...] Date Hysterectomy 1989 Tubal ligation 1979 Colonoscopy [facility] Lumbar spine surgery Right 06/23/2016 Procedure: L2-3, L3-4, L4-5 Lateral Anterior Interbody Fusion; Surgeon: Anjum Carter DO; Location: [facility] MAIN OR CURRENT MEDICATIONS: No current outpatient prescriptions on file. No current facility-administered medications for this visit. ALLERGIES: No Known Allergies SOCIAL HISTORY: The patient reports that she quit smoking about 2 years ago. Her smoking use included Ciga rettes. She quit after 4 years of use. She has never used smokeless tobacco. She reports chris t she drinks alcohol. She reports that she [...] illness. In addition, the patient has numbness of legs, awake with numbness, weakness, and c hange in walk. PSYCHIATRIC: No depression, no sleep disorders, no [...] RHEUMATOLOGIC: No joint arthritis, no rheumatoid arthritis. INTERIM PHYSICAL EXAMINATION: Blood pressure 122/77, pulse 109, resp. rate 16, height 1.6 m (5' 3"), weight 49.896 kg (11 0 lb), not currently . Body mass index is 19.49 kg/(m^2). GENERAL: Yovany Jackson is in no acute distress with unlabored respirations. SPINE: The patient s incisions are healing well without drainage, significant erythema, o r discharge EXTREMITIES: No lower extremity edema. NEUROLOGICAL EXAMINATION: MENTAL STATUS: The patient is awake, alert, and oriented. She follows simple and complex commands MOTOR EXAM: Motor strength is 4/5 right LE diffusely. This is unchanged from the preoperat wilder exam. SENSORY EXAM: The sensory examination improved from the preoperative exam. Persistent righ t L5-type dysesthesia. REFLEXES: Reflexes are unchanged from her preoperative history and physical. RADIOGRAPHIC REVIEW: The patient s postoperative x-rays show stable instrumentation and alignment and were rev iewed with the patient today. She failed to get new x-rays prior to her appointment, so her previous x-rays from 07/21/16 was reviewed. There are stable postoperative changes. No acute findings. ASSESSMENT: S/P XLIF L2-5: Encounter Diagnoses Name Primary? Spondylolisthesis, lumbar region Yes S/P lumbar fusion Past Medical History Diagnosis Date History of participation in smoking cessation counseling Continuous leakage of urine Radiculopathy, lumbar region History of hepatitis C Arthritis Vaginal wall prolapse Post hysterectomy menopause Pharyngitis Carpal tunnel syndrome of right wrist Low back pain Lumbar disc narrowing Frequent UTI Blue dome cyst Extremity cyanosis (HCC) Cardiac murmur PLAN: Overall, the patient is doing fairly well. I was pleased to see at least some further impr ovement and expect more improvement with time. This was discussed with the patient today. I have increased the patient s activities further, and I would like the patient to continu e to advance with activities as tolerated and as directed. She will present to the hospital now for her 3-month lumbar x-rays. She will undergo repeat x-ray of the back in 3 and 9 months and follow-up with me as needed . ELECTRONICALLY SIGNED BY: Anjum Carter DO, 09/22/2016 15:45 documented in this encounter Plan of Treatment + +---------+--------+ + + | Name | Type | Priori | Associated Diagnoses | Order Schedule | | | | ty | | | + +---------+--------+ + + | XR Lumbar Spine 2 or | Imaging | Routin | Spondylolisthesis, | Expected: 06/24/2017 | | 3 Vw | | e | lumbar region S/P | (Approximate), | | | | | lumbar fusion | Expires: 09/22/2017 | + +---------+--------+ + + documented as of this encounter Results XR Lumbar Spine 2 or 3 Vw (09/22/2016 4:05 PM PDT) + + | Specimen | + + | | + + + + + | Narrative | Performed At | + + + | EXAM:XR LUMBAR SPINE 2 OR 3 VW CLINICAL HISTORY: S/p lumbar | [facility] | | fusion COMPARISON: Lumbar spine radiographs dating to June 23 [facility] | | 2015. FINDINGS: Frontal and lateral views. Posterior and [...] Procedure Note | + + | Melo, Victor M Results In - 09/22/2016 4:29 PM PDT [...] + + | Performing | Address | City/State[facility] | Phone Number | | Organization | | | | + + + + + | [facility] | [address] | [place] | [phone] | | [facility] | | [address] | | | - IMAGING | | | | + + + + + documented in this encounter Visit Diagnoses + + | Diagnosis | + + | Spondylolisthesis, lumbar region - Primary | + + | S/P lumbar fusion Arthrodesis status | + + documented in this encounter
--- OUTSIDE RECORDS SUMMARY | ~2020-01-12 | XMS | Encounter Summary ---
Demographics + + + | Address | [address] | | | [place] [address] | + + + | Home Phone | | + + + | Preferred Language | Unknown | + + + | Marital Status | | + + + | Confucianism Affiliation | Unknown | + + + | Race | Unknown | + + + | Ethnic Group | Unknown | + + + Author + + + | Author | [facility] | | | and [place] | + + + | Organization | 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 Name | Role | Phone | [...] | | | | | | | [place] | | | | | | | [...] + + + + | 06/23/ | Hospital | [facility] | Anjum Carter, | S/P lumbar fusion | | 2016 - | Encounter | [facility] | DO [address] | (Primary Dx); | | | | [address] | [address] [place], [place] | Scoliosis of lumbar | | 06/25/ | | [place] [id number] | [id number] | spine, unspecified | | 2015 | | [phone] | | scoliosis type; | | | | | | Radiculopathy, | | | | | | lumbar region; | | | | | | Neurogenic | | | | | | claudication - Dec | | | | | | 2015 | +--------+ + + + + Social [...] + + + | Blood Pressure | 116/57 | 06/25/2016 7:16 AM | | | | | PST | | + + + + + | Pulse | 76 | 06/25/2016 7:16 AM | | | | | PST | | + + + + + | Temperature | 36.4 C (97.5 F) | 06/25/2016 7:16 AM | | | | | PST | | + + + + + | Respiratory Rate | 16 | 06/25/2016 7:16 AM | | | [...] of admission the patient was admitted to [facility] and underwent a L2-l5 fusion. Patient was [...] Discharge: Stable Disposition: Patient was discharged to B Follow-Up Plans: Follow-up with: Dr. Carter's office in 4 weeks Follow-up with primary care physician as needed. Diet: Resume regular diet Activity: Continue to follow guidelines and precautions as previously discussed. Brace: home Electronically signed by: Todd Montanez, 06/25/2016 8:57 [facility] documented in this encounter Discharge Instructions [...] month post op appointment before your appointment. [id number] [facility]. [address] [place] [address]. All righ ts reserved. This information is [...] might be different f rom the original. [facility] NEUROSURGERY PROGRESS NOTE Pt. Name/Age/: Yovany Jackson [...] signed by: Todd Montanez, 06/25/2016 8:47 [facility] uTodd gillette PA - 06/24/2016 7:34 AM PST [facility] NEUROSURGERY PROGRESS NOTE Pt. Name/Age/: Yovany Jackson [...] has not been up and ambulating. Oth ethel she has no C/C. OBJECTIVE: Patient Vitals for the past 24 hrs: BP Temp Temp src Pulse Resp SpO2 Height Weight 06/24/16 0323 123/70 mmHg 35.6 C (96.1 F) Oral 63 16 97 % - - 06/23/16 231 140/68 mmHg - - 68 16 100 % - - 06/23/162212 - - - 63 - 100 % - - 06/23/16 2150 140/71 mmHg - - 68 14 98 % - - 06/23/162055 123/64 mmHg - - 60 16 97 % - - 06/23/162029 - - - 68 - 100 % - - 06/23/161956 148/70 mmHg - - 62 14 98 [...] Electronically signed by: Todd Montanez, 06/24/2016 7:34 [facility] documented in this encounter H&P Notes Anjum Carter DO - 06/23/2016 12:18 PM PSTSURGICAL INTERIM HISTORY [...] signed by: Anjum Carter DO, 06/23/2016 12:18 [facility] reyer, Anjum Giraldo DO - 06/23/2016 12:18 PM PST Anjum Carter DO [address] [facility] [address] [place], [place] [address] FAX: NEUROSURGERY HISTORY AND PHYSICAL EXAMINATION CHIEF [...] and the s ymptoms travels from the [facility] over the top and side of her [...] has no apparent deficits with short or termite treater memory. CRANIAL NERVES: II: Acuity is intact. [...] Intrinsics 5 5 Ulnar Intrinsics 5 5 Dry Drug Worker Strength 5 5 Hip Flexion 4 5 [...] Extremity cyanosis (HCC) Cardiac murmur PLAN: Yovany Selenakai Jackson presented today, and it was a [...] Evaluation: 1. Pain was managed with two [facility] pills PRN at a time and a muscle relaxant. 2. Pt denies numbness, muscle strength to all extremities 5/5. 3. Pt follows lumbar precautions well, able [...] go home today. lan of Care - Mallika Merritt COTA - 06/25/2016 11:08 AM PSTProblem: Patient Care [...] after demonstration using s ock aid and manager registration and patient and daughter educated in where [...] socks after demonstration using sock aid and manager registration. Education on further techniqu es for ADLs following spinal precaution, but patient returned to supine due to pain. LB, Level of [place]: verbal cues required, supervision required Bed Mobility Assistive Device: bed rails Supine to Sit, Level of [place]: supervision required, verbal cues required Sit to Supine, Level of [place]: supervision required, verbal cues required Safety Issues: decreased use of arms for pushing/pulling, decreased use of legs for bridgin g/pushing Impairments: strength decreased, pain STG Goals Transfer Training Goal, Activity Type: walk-in shower, toilet [place] Level: modified independence Assistive Device: 2 wheeled walker (FWW) Time to Achieve: by discharge Goal Status: continued, progressing toward goal Grooming Goal, [place] Level: modified independence Adaptive Equipment: none Position: supported standing Time to Achieve: by discharge Goal Status: continued Bathing Goal, [place] Level: modified independence Adaptive Equpiment: shower chair, sponge, long handled Time to Achieve: by discharge Goal Status: continued Goal Status: continued, progressing toward goal Occupational Therapy will follow Yovany Jackson 3 times/wk until discharge from [facility] or discharged from the hospital. Identified Problems Needing Skilled Intervention: Decreased functional tolerance, self ca re deficit, posture, ROM Planned Interventions:ADL retraining, transfer training Electronically signed by: MUMTAZ Birch, 06/25/2016 11:06 [facility] - Donna Wilson RN - 06/25/2016 10:04 AM PSTPt and her daughter state she will be needing a FW W. Patient option form signed and placed in [facility] chart. Referral faxed to [facility] and call placed. They will call back with an approximate cost, if a ny is due for patient. Electronically signed by: Donna Morrison RN 06/25/2016 10:05 [facility] contacted, stated FWW ready, no co-pay needed. Information provided to patient as wel l as [facility] address for daughter to milk pickup driver FWW prior to discharge. Electronically signed by: Donna Morrison RN 06/25/2016 12:28 [facility] - Timothy Dallas RN - 06/25/2016 4:32 [...] adequatel y controlled with PO medication (2 [facility]'s Q4H). Ambulating Mod-I to/from bathroom with FWW, mobilizing well. MS are 5/5 throughout, CMS is intact. VSS, SL'd. SpO2 maintained on RA. CASSIDY drain with 45 cc of output overnight. Tolerating general diet. Voiding well. BM on 06/23. C olace and senna given. Electronically signed by: TIMOTHY HER RN 06/25/2016 4:32 lan of Care - Katie Washington RN - 06/24/2016 6:00 PM PSTProblem: Patient [...] reported. Pt ambulated several times in the [facility] with SBA using a FWW. 5/5 MS [...] decision in her life. Grateful for the chaplaan jett's visit.at Spiritual Goals / Follow-up: Will see the patient as requested. If there are any other spiritual care issues that arise, please contact automobile rental representative. lan of Care - Roseanna Torres, OT - 06/24/2016 12:08 PM PSTProblem: Patient [...] to maintain spinal precautions Toileting, Level of [place]: set up required, contact guard assist, verbal cues requir ed Assistive Device: none Toileting Assess/Train, Position: sitting Toileting Assess/Train, Impairments: strength decreased, impaired balance Bed Mobility Needs VCs during bed mobility for safety and maintenance of precautions Assistive Device: bed rails Supine to Sit, Level of [place]: contact guard assist Safety Issues: decreased use of arms for pushing/pulling, decreased use of legs for bridgin g/pushing Impairments: strength decreased, impaired balance, motor control impaired, pain Transfers Cues for hand placement, tends to move impulsively. VC to move slower Sit-Stand, Level of [place]: contact guard assist, verbal cues required Stand-Sit, Level of [place]: contact guard assist, verbal cues required Oey-Uycnw-Mli, Assistive Device: 2 wheeled walker (FWW) Toilet, Level of [place]: verbal cues required, contact guard assist Toilet, Assistive Device: 2 wheeled walker (FWW), grab bars Safety Issues: step length decreased Impairments: coordination impaired, strength decreased, impaired balance, pain ROM Within spinal precautions L UE ROM: WFL R UE ROM: WFL Strength L UE Strength: WFL R UE Strength: WFL STG Goals Transfer Training Goal, Activity Type: walk-in shower, toilet [place] Level: modified independence Assistive Device: 2 wheeled walker (FWW) Time to Achieve: by discharge Goal Status: new Grooming Goal, [place] Level: modified independence Adaptive Equipment: none Position: supported standing Time to Achieve: by discharge Goal Status: new Bathing Goal, [place] Level: modified independence Adaptive Equpiment: shower chair, sponge, long handled Time to Achieve: by discharge Goal Status: new Occupational Therapy will follow Yovany Jackson 3 times/wk until discharge from [facility] or discharged from the hospital. Identified Problems Needing Skilled Intervention: Decreased functional tolerance, self ca re deficit, posture, ROM Planned Interventions:ADL retraining, transfer training Electronically signed by: Roseanna Torres OT, 06/24/2016 15:29 lan of Care - Jackelin Trinh - 06/24/2016 10:16 AM PSTDischarge Planning: Met with Yovany and her daughter this morning to discuss her discharge plan Yovany lives with he SO in [place]. They live in a Ranch style home with 3 steps at th e entrance. Yovany plans on getting all her DME at [facility] in [place]. Home health was declined. Yovany's daughter lives next door and will help out as needed. Yovany uses [facility] in [place] for her pharmacy needs. Yovany SO will transport he r home when she is medically stable. No discharge needs at this time. Electronically signed by: Jackeiln Delatorre 06/24/2016 10:45 lan of Care - Lolita Sawant johnie Fink, PT - 06/24/2016 9:56 AM [...] incre ased gait distance, FWW Level of Daven[place] : contact guard assist, verbal cues required Assistive Device: 2 wheeled walker (FWW) Distance (feet): 15' x 3 Transfers Cues for hand placement and to widen KELSEY Sit-Stand, Level of [place]: contact guard assist, verbal cues required Stand-Sit, Level of [place]: contact guard assist, verbal cues required Hvv-Vaumr-Ejc, Assistive Device: 2 wheeled walker (FWW) Safety Issues: step length decreased Impairments: coordination impaired, strength decreased, impaired balance, pain Bed Mobility Needing 1P assist for education of tech, physical assistance and vc's. Assistive Device: bed rails, HOB elevated Supine to Sit, Level of [place]: minimum assist (75% patient effort), verbal cues requ ired Sit to Supine, Level of [place]: contact guard assist, verbal cues required Safety [...] Activity Type: supine to sit/sit to supine [place] Level: independent Assistive Device: none Time to Achieve: 3 days Goal Status: new Transfer Training Goal, Activity Type: sit to stand/stand to sit [place] Level: modified independence Assistive Device: 2 wheeled walker (FWW) Time to Achieve: 3 days Goal Status: new Gait Training Goal, [place] Level: modified independence Assistive Device: 2 wheeled walker (FWW) Distance: 150 Time to Achieve: 3 days Goal Status: new Stairs Goal, [place] Level: contact guard assist Assistive Device: 1 [...] fitting/training, transfer training Electronically signed by: Clara Sawant, PT, 06/24/2016 9:47 lan of Care - [...] well, reports dizziness when standing. Transferring to [facility] to void. Urine is cloudy yellow and odorous. No burning or urgency. Denies numbness/tingling. Pulses palpable, extremities warm. lan of Clara Gary, LVN - 06/23/2016 10:26 PM PSTProblem: Patient Care [...] PM PSTDATE: 06/23/2016 SURGEON: Anjum Carter DO MANNEQUIN MOUNTER: JOCELINE Bernard PREOPERATIVE DIAGNOSES 1. Lumbar scoliosis. [...] were carefully padded. After connecting her to [employer] system appropriately, she was secured to [...] osen. It was filled with Infuse and [place] putty. It was tamped into the interbody [...] osen. It was filled with Infuse and Robles [...] 50 mm 10-degree lordotic PEEK cage from [employer] was chosen. It was filled with Infuse and [place] putty. It was tamped into the interbody space of L2-3. Th e retractor was removed. Hemostasis was meticulously achieved along the tract. At this point the lateral incision was closed. First the fascial layer was closed with phong ral [id number]-[id number] interrupted 2-0 Vicryl stitches. Then the subcuticular [...] and the L2-L5 levels were targeted using th e O-arm. The O-arm spin was conducted with co-registration with the Stealth system using the Stealth probe, and an appropriate trajectory for ideal screw placement was made bilaterally from L2-L5. This was marked at the skin level and the monterroso were infiltrated with 0.25% Mar jones with epinephrine. A #10 scalpel blade was [...] was decorticated. It was then packed with [place] putty and cancelous bone chips. Hemostas is [...] 100 mm were chosen and attached to Voyager marilia passer . A more cephalad transverse incision was made approximately 3 fingerbreadths superior to th e first screw labor service representative bilaterally, then the rods were passed subfascially into the screw ex tenders. A marilia loom stop checker was used to ensure proper placement of the marilia. The O-arm was again b rought into the operative field, and using AP and lateral fluoroscopy, the rods were found t o be in good position. The rods were then reduced down, and once they were reduced, they wer e secured in place with set screws which were torqued to the legislative director's recommended torq ue. This occurred bilaterally. Next, [...] was transferred in stable condition to the [facility] room. rief Op N ashley - Anjum Carter DO - 06/23/2016 5:18 PM PSTFormatting of this note might be differen t from the original. Brief Operative Note Yovany Jackson 55 y.o. female 1960 [id number] Proc. Date 06/23/2016 Preop Dx Scoliosis, unspecified scoliosis type, unspecified spinal region [M41.9] Postop Dx same Procedure L2-3, L3-4, L4-5 Lateral Anterior Interbody Fusion Anesthesia General Surgeon Anjum Carter DO - Primary Dining Car Server JOCELINE Knott EBL 200 mL Findings Findings consistent with scheduled procedure. No other abnormalities found. Complications none Specimens * No specimens in log * Drains Drain/Device Site 06/23/16 1643 lumbar spine (Active) Drainage Characteristics/Odor serosanguineous 06/23/2016 17:05 Drainage Amount scant 06/23/2016 17:05 Electronically signed by: Anjum Carter DO 06/23/2016 17:18 [facility] DO at [...] | | Jackso | | | n Canadian | | | | | | Frame, | | | | | | Jackso | | | n | | | Frame | +---+--------+ | | | | | Specia | | | l | | | Needs | | | Thanh | | | | | | Phil | | | - | | | Voyage | | | r; | | | [...] | | | + +---------+ + + NAKIA PeeweeHemalathaJeronimo Segura (06/23/2016 4:49 PM PST) + + | [...] + + + + + | [facility]. | [address] | [place] | | | [facility] | | [address] | | | - BLOOD BANK | | | | + + + + + documented in this encounter Visit Diagnoses + + | Diagnosis | + + | S/P lumbar fusion Arthrodesis status | + + | Scoliosis of lumbar spine, unspecified scoliosis type | + + | Radiculopathy, lumbar region Thoracic or lumbosacral neuritis or radiculitis, | | unspecified | + + | Neurogenic claudication - Jun 2016 Spinal stenosis, lumbar region, with neurogenic | | claudication | + + documented in this encounter Administered Medications + +---------+ +------+-------+------+ | Medication Order | MAR | Action | Dose | Rate | Site | | | Action | Date | | | | + +---------+ +------+-------+------+ | ceFAZolin (ANCEF, KEFZOL) 2 g | New Bag | 06/24/20 | 2 g | 100 | | | in sodium chloride 0.9% 50 mL | | 16 5:20 | | mL/hr | | | IVPB 2 g, Intravenous, | | AM PST | | | | | Administer over 30 Minutes, EVERY | | | | | | | 8 HOURS INTERVAL, First dose on | | | | | | | 06/23/16 at 2100, For 2 | | | | | | | doses, Start 8 hours after | | | | | | | previous dose. Last dose to be | | | | | | | given within 24 hours of surgery | | | | | | | end time., Post-op/Phase II, | | | | | | | Indications: Surgical Prophylaxis | | | | | | + +---------+ +------+-------+------+ +---------+ +-----+-------+---+ | New Bag | 06/23/20 | 2 g | 100 | | | | 16 8:54 | | mL/hr | | | | PM PST | | | | +---------+ +-----+-------+---+ +---+---+ | | | +---+---+ + +-------+ +--------+---+---+ | diazePAM (VALIUM) injection | Given | 06/24/20 | 2.5 mg | | | | 2.5-5 mg 2.5-5 mg, Intravenous, | | 16 5:24 | | | | | EVERY 6 HOURS PRN, Muscle spasms, | | AM PST | | | | | Starting 06/23/16 at 1830, | | | | | | | Use if methocarbamol and | | | | | | | cyclobenzaprine ineffective or | | | | | | | not ordered. Use PO option unless | | | | | | | NPO status or unable to | | | | | | | tolerate., Post-op/Phase II | | | | | | + +-------+ +--------+---+---+ +---+---+ | | | +---+---+ + +-------+ +------+---+---+ | diazePAM (VALIUM) tablet 5 mg | Given | 06/25/20 | 5 mg | | | | 5 mg, Oral, EVERY 6 HOURS PRN, | | 16 9:52 | | | | | Muscle spasms, Starting Tue | | AM PST | | | | | 06/23/16 at 1830, Use if | | | | | | | methocarbamol and cyclobenzaprine | | | | | | | ineffective or not ordered., | | | | | | | Post-op/Phase II | | | | | | + +-------+ +------+---+---+ +-------+ +------+---+---+ | Given | 06/24/20 | 5 mg | | | | | 16 12:10 | | | | | | PM PST | | | | +-------+ +------+---+---+ | Given | 06/23/20 | 5 mg | | | | | 16 7:55 | | | | | | PM PST | | | | +-------+ +------+---+---+ +---+---+ | | | +---+---+ + +-------+ +--------+---+---+ | docusate sodium (COLACE) | Given | 06/25/20 | 100 mg | | | | capsule 100 mg 100 mg, Oral, 2 | | 16 8:42 | | | | | TIMES DAILY, First dose on Wed | | AM PST | | | | | 06/23/16 at 2100, First line | | | | | | | agent for constipation, | | | | | | | Post-op/Phase II | | | | | | + +-------+ +--------+---+---+ +-------+ +--------+---+---+ | Given | 06/24/20 | 100 mg | | | | | 16 8:24 | | | | | | PM PST | | | | +-------+ +--------+---+---+ | Given | 06/24/20 | 100 mg | | | | | 16 8:12 | | | | | | AM PST | | | | +-------+ +--------+---+---+ +---+---+ | | | +---+---+ + +-------+ +--------+---+---+ | fentaNYL (PF) injection 25-50 | Given | 06/23/20 | 50 mcg | | | | mcg 25-50 mcg, Intravenous, | | 16 5:19 | | | | | EVERY 5 MIN PRN, Pain, Starting | | PM PST | | | | | 06/23/16 at 1644, Maximum | | | | | | | total dose 250 mcg. PACU IV | | | | | | | Narcotic Priority: Only use | | | | | | | fentanyl for immediate post-op | | | | | | | pain (one dose) or breakthrough | | | | | | | pain when any other IV narcotics | | | | | | | ordered have been ineffective (if | | | | | | | ordered). If both morphine and | | | | | | | hydromorphone are ordered, use | | | | | | | morphine first, and use | | | | | | | hydromporphone if morphine | | | | | | | ineffective., Recovery/Phase I | | | | | | + +-------+ +--------+---+---+ +---+---+ | | | +---+---+ + +-------+ +---------+---+---+ | HYDROcodone-acetaminophen | Given | 06/25/20 | 2 | | | | (NORCO) 10-325 mg per tablet 1-2 | | 16 12:51 | tablets | | | | tablet 1-2 tablet, Oral, EVERY 4 | | PM PST | | | | | HOURS PRN, Pain, Starting Tue | | | | | | | 06/23/16 at 1830, Post-op/Phase | | | | | | | II | | | | | | + +-------+ +---------+---+---+ +-------+ +---------+---+---+ | Given | 06/25/20 | 2 | | | | | 16 8:37 | tablets | | | | | AM PST | | | | +-------+ +---------+---+---+ | Given | 06/25/20 | 2 | | | | | 16 4:18 | tablets | | | | | AM PST | | | | +-------+ +---------+---+---+ +---+---+ | | | +---+---+ + + + +--------+---+---+ | HYDROmorphone (DILAUDID) | Given by | 06/23/20 | 0.3 mg | | | | injection 0.2-0.5 mg 0.2-0.5 mg, | Other | 16 5:41 | | | | | Intravenous, EVERY 5 MIN PRN, | | PM PST | | | | | Pain, Starting Wed06/23/16 at | | | | | | | 1644, Maximum total dose 4 mg. | | | | | | | PACU IV Narcotic Priority: Only | | | | | | | use fentanyl for immediate | | | | | | | post-op pain (one dose) or | | | | | | | breakthrough pain when any other | | | | | | | IV narcotics ordered have been | | | | | | | ineffective (if ordered). If | | | | | | | both morphine and hydromorphone | | | | | | | are ordered, use morphine first, | | | | | | | and use hydromporphone if | | | | | | | morphine ineffective., | | | | | | | Recovery/Phase I | | | | | | + + + +--------+---+---+ +---+---+ | | | +---+---+ + +---------+ +--------+--------+---+ | methocarbamol (ROBAXIN) 750 mg | New Bag | 06/24/20 | 750 mg | 143.3 | | | in sodium chloride 0.9% 100 mL | | 16 5:33 | | mL/hr | | | IVPB 750 mg, Intravenous, | | PM PST | | | | | Administer over 45 Minutes, EVERY | | | | | | | 8 HOURS INTERVAL, First dose on | | | | | | | 06/23/16 at 1730, For 4 | | | | | | | doses, Post-op/Phase II | | | | | | + +---------+ +--------+--------+---+ +---------+ +--------+--------+---+ | New Bag | 06/24/20 | 750 mg | 143.3 | | | | 16 8:35 | | mL/hr | | | | AM PST | | | | +---------+ +--------+--------+---+ | New Bag | 06/24/20 | 750 mg | 143.3 | | | | 16 1:30 | | mL/hr | | | | AM PST | | | | +---------+ +--------+--------+---+ +---+---+ | | | +---+---+ + +-------+ +------+---+---+ | morphine injection 2-8 mg 2-8 | Given | 06/24/20 | 4 mg | | | | mg, Intravenous, EVERY 2 HOURS | | 16 8:13 | | | | | PRN, Pain, Starting Tu06/23/16 | | AM PST | | | | | at 1830, If oral route not an | | | | | | | option. Slow IV push, not faster | | | | | | | than 2mg/minute. First dose must | | | | | | | be lowest dose, titrate to | | | | | | | effective dose by repeat of | | | | | | | lowest dose every 30 minutes prn | | | | | | | pain, may not exceed maximum dose | | | | | | | ordered per interval. Use Pasero | | | | | | | Sedation Scale., Post-op/Phase | | | | | | | II | | | | | | + +-------+ +------+---+---+ +-------+ +------+---+---+ | Given | 06/24/20 | 4 mg | | | | | 16 6:25 | | | | | | AM PST | | | | +-------+ +------+---+---+ | Given | 06/24/20 | 4 mg | | | | | 16 3:38 | | | | | | AM PST | | | | +-------+ +------+---+---+ +---+---+ | | | +---+---+ + +-------+ +------+---+---+ | ondansetron (ZOFRAN) injection | Given | 06/23/20 | 4 mg | | | | 4 mg 4 mg, Intravenous, ONCE | | 16 5:22 | | | | | PRN, Nausea, Starting Tue | | PM PST | | | | | 06/23/16 at 1644, For 1 dose, | | | | | | | Recovery/Phase I | | | | | | + +-------+ +------+---+---+ +---+---+ | | | +---+---+ + +-------+ +------+---+---+ | polyethylene glycol (MIRALAX) | Given | 06/25/20 | 17 g | | | | powder 17 g 17 g, Oral, DAILY, | | 16 8:42 | | | | | First dose on Wed06/23/16 at | | AM PST | | | | | 1900, If docusate and senna | | | | | | | ineffective or not ordered, | | | | | | | Post-op/Phase II | | | | | | + +-------+ +------+---+---+ +-------+ +------+---+---+ | Given | 06/24/20 | 17 g | | | | | 16 8:13 | | | | | | AM PST | | | | +-------+ +------+---+---+ +---+---+ | | | +---+---+ + +---------+ +---------+---+ + | scopolamine (TRANSDERM-SCOP) 1 | Patch | 06/23/20 | 1 patch | | Ear-Behi | | mg/3 days 1 patch 1 patch, | Applied | 16 12:55 | | | nd Left | | Transdermal, EVERY 72 HOURS, | | PM PST | | | | | First dose on Wed06/23/16 at | | | | | | | 1315, Each patch contains 1.5 mg | | | | | | | and is designed to deliver 1 mg | | | | | | | over 3 days. DO NOT CUT patch., | | | | | | | Pre-op | | | | | | + +---------+ +---------+---+ + +---+---+ | | | +---+---+ + +-------+ +--------+---+---+ | senna (SENOKOT) tablet 8.6 mg | Given | 06/25/20 | 8.6 mg | | | | 8.6 mg, Oral, 2 TIMES DAILY, | | 16 8:42 | | | | | First dose on Wed06/23/16 at | | AM PST | | | | | 2100, If docusate ineffective or | | | | | | | not ordered, Post-op/Phase II | | | | | | + +-------+ +--------+---+---+ +-------+ +--------+---+---+ | Given | 06/24/20 | 8.6 mg | | | | | 16 8:24 | | | | | | PM PST | | | | +-------+ +--------+---+---+ | Given | 06/24/20 | 8.6 mg | | | | | 16 8:13 | | | | | | AM PST | | | | +-------+ +--------+---+---+ +---+---+ | | | +---+---+ + +---------+ +--------+-------+---+ | sodium chloride 0.9% (NS) | New Bag | 06/23/20 | 1,000 | 100 | | | infusion at 100 mL/hr, | | 16 12:57 | mLs | mL/hr | | | Intravenous, CONTINUOUS, Starting | | PM PST | | | | | 06/23/16 at 1045, Pre-op | | | | | | + +---------+ +--------+-------+---+ +---------+ +---+-------+---+ | New Bag | 06/23/20 | | 100 | | | | 16 10:47 | | mL/hr | | | | AM PST | | | | +---------+ +---+-------+---+ +---+---+ | | | +---+---+ + +---------+ +---+-------+---+ | sodium chloride 0.9% (NS) | New Bag | 06/24/20 | | 100 | | | infusion at 100 mL/hr, | | 16 6:25 | | mL/hr | | | Intravenous, CONTINUOUS, Starting | | AM PST | | | | | 06/23/16 at 1900, | | | | | | | Post-op/Phase II | | | | | | + +---------+ +---+-------+---+ +---------+ +---+-------+---+ | New Bag | 06/23/20 | | 100 | | | | 16 6:00 | | mL/hr | | | | AM PST | | | | +---------+ +---+-------+---+ +---+---+ | | | +---+---+ documented in this encounter
--- OUTSIDE RECORDS SUMMARY | ~2020-01-12 | XMS | Encounter Summary ---
Demographics + + + | Address | [address] | | | [place] [address] | + + + | Home Phone [...] | Organization | [facility] | | | and [...] Team Providers + +------+ + | Care Automated Logistics Specialist Name | Role | Phone | + +------+ + | Bethany oDnato | PCP | | + +------+ + Reason for Visit + +--------+ + | Reason | Onset | Comments | | | Date | | + +--------+ + | Letter for | 09/23/ | | | School/Work | 2016 | | + +--------+ + Encounter Details +--------+ + + + + | Date | Type | Department | Care Team | Description | +--------+ + + + + | 09/23/ | Telephone | [facility] | Anjum Carter, | Letter for | | 2016 | | [address] | DO [address] | School/Work | | | | [address] | [address] [place], [place] | | | | | [place] | [address] | | | | | [address] | | | | | | [phone] | | | +--------+ + + + [...] encounter Miscellaneous Notes Telephone Encounter - Edna Franco Cert MA - 09/23/2016 3:32 PM PDTI called and spoke wi ghazal oneill. I let her know that a new letter has been generated. She confirmed she wante d this sent to her employer, attn: Araceli as I have done previously. Fax #: [phone] ectronically signed by Aubrie Chappell MA at 09/23/2016 3:34 PM PDTTelephone Encounter - Anjum Carter DO - 09/23/2016 3:06 PM PDTPlease make it so. Thanks. elephone Enco unter - Edna Franco Cert MA - 09/23/2016 1:34 [address] PDTDr. Emma, Is this okay with you? elephone Carmel Solorzano - 09/23/2016 1:20 PM PDTPatient called in asking that Dr. Carter re -write a letter giving her permission to work 5 hours daily (not 4 hours). She is asking for the letter to be faxed to her place of employment. Please advise documented in this encounter Plan of Treatment Not on filedocumented as of this encounter Visit Diagnoses Not on filedocumented in this encounter"
--- OUTSIDE RECORDS SUMMARY | ~2020-01-12 | XMS | Encounter Summary ---
Demographics + + + | Address | [address] | | | [place] [address] | + + + | Home Phone | | + + + | Preferred Language | Unknown | + + + | Marital Status | | + + + | Mosque Affiliation | Unknown | + + + | Race | Unknown | + + + | Ethnic Group | Unknown | + + + Author + + + | Author | [facility] | | | and [place] | + + + | Organization | [facility] | | | and [place] | [...] Team Providers + +------+ + | Care Nickel Plater Name | Role | Phone | + +------+ + PCP | Unavailable | + +------+ + Encounter Details +--------+ + + + + | Date | Type | Department | Care Team | Description | +--------+ + + + + | 12/16/ | Hospital | [facility] | | | | 1995 | Encounter | MED CTR EMERGENCY | | | | | | CENTER [address] | | | | | | [place] | | | | | | [address] | | | | | | [phone] | | | +--------+ + + + [...]
--- OUTSIDE RECORDS SUMMARY | ~2020-01-12 | XMS | Encounter Summary ---
Demographics + + + | Address | [address] | | | [place] [address] | + + + | Home Phone | | + + + | Preferred Language | Unknown | + + + | Marital Status | | + + + | Hinduism Affiliation | Unknown | + + + | Race | Unknown | + + + | Ethnic Group | Unknown | + + + Author + + + | Author | [facility] | | | and [place] | + + + | Organization | [facility] | | | and [place] [...] Team Providers + +------+ + | Care Senior Software Tester Name | Role | Phone | + +------+ + | Bethany Donato | PCP | | + +------+ + Encounter Details +--------+ + + + + | Date | Type | Department | Care Team | Description | +--------+ + + + + | 06/11/ | Orders Only | [facility] [place] | Anjum Carter, | Kyphoscoliosis | | 2016 | | NEUR[address]UR[address] | DO [address] | (Primary Dx); Status | | | | [address] | [address] [place], [place] | post lumbar spinal | | | | [place], [place] | [address] | fusion | | | | [address] | | | | | | [phone] | | | +--------+ + + + [...] 2 or | Imaging | Routin | Kyphoscoliosis | Expected: 07/06/2016 | | 3 Vw | | e | Status post lumbar | (Approximate), | | | | | spinal fusion | Expires: 06/11/2017 | + +---------+--------+ + + documented as of this encounter Visit Diagnoses + + | Diagnosis | + + | Kyphoscoliosis - Primary Scoliosis (and kyphoscoliosis), idiopathic | + + | Status post lumbar spinal fusion Arthrodesis status | + + documented in this encounter"
--- OUTSIDE RECORDS SUMMARY | ~2020-01-12 | XMS | Encounter Summary ---
Demographics + + + | Address | [address] | | | [place] [address] | + + + | Home Phone | | + + + | Preferred Language | Unknown | + + + | Marital Status | | + + + | Mu-Ism Affiliation | Unknown | + + + | Race | Unknown | + + + | Ethnic Group | Unknown | + + + Author + + + | Author | [facility] | | | and [place] | + + + | Organization | [facility] | | | and [place] [...] Team Providers + +------+ + | Care Manager Stars Name | Role | Phone | + +------+ + | Bethany Donato | PCP | | + +------+ + Reason for Visit +--------+--------+ + | Reason | Onset | Comments | | | Date | | +--------+--------+ + | Letter | 07/09/ | | | | 2017 | | +--------+--------+ + Encounter Details +--------+ + + + + | Date | Type | Department | Care Team | Description | +--------+ + + + + | 07/09/ | Telephone | [facility] [place] | Anjum Carter, | Letter | | 2017 | | NEUROSUR[address] | DO [address] | | | | | [address] | [address] [place], [place] | | | | | [place], [place] | [address] | | | | | [address] | | | | | | [phone] | | | +--------+ + + + [...] - Viktoriya Leal Cert MA - 07/24/2016 12:23 PM PSTCristi called back, giving me the same number I already had to fax the letter to [employer]. I explained to her th at I did fax this for her on 07/10/16. I let her know that I would try again, but if she does n't get it this time, we may need to find another route of getting this to her employer. VIKTORIYA LEAL elephone EncounViktoriya Mora Cert MA - 07/24/2016 12:11 PM PSTYovany called today stating her emplo brian still has yet to receive the letter I faxed on 07/10/16. Yovany says she will be chetan ng back with a different number VIKTORIYA LEAL elephone EncounViktoriya Mora Cert MA - 07/10/2016 9:15 AM PSTLetter faxed to [employer]. VIKTORIYA LEAL elephone Alayna Agustin - 07/10/2016 8:54 AM PSTAraceli returned Viktoriya's call. Fax back to [phone] and please put attn: Araceli. eleViktoriya Muller Cert MA - 07/09/2016 3:58 PM PSTLVM for S marloncharly requesting a call back so that I can get a good fax number to send patients letter elephone Anjum Kinney DO - 07/09/2016 3:32 PM PSTPlease make it so. Thanks. elephone Sina boyle - Viktoriya Leal Cert MA - 07/09/2016 2:55 PM PSTYovany has requested a letter be sent to her employers office keeping her off work for approximately 3 months past the date o f surgery. She is S/P L2-5 Fusion on 06/23/16. Next visit is on 07/14/16. (employer number [phone] - Araceli) Thank you VIKTORIYA LEAL documented in this encounter Plan of Treatment Not on filedocumented as of this encounter Visit Diagnoses Not on filedocumented in this encounter"
--- OUTSIDE RECORDS SUMMARY | ~2020-01-12 | XMS | Encounter Summary ---
Demographics + + + | Address | [address] | | | [place] [address] | + + + | Home Phone | | + + + | Preferred Language | Unknown | + + + | Marital Status | | + + + | Mosque Affiliation | Unknown | + + + | Race | Unknown | + + + | Ethnic Group | Unknown | + + + Author + + + | Author | [facility] | | | and [place] | + + + | Organization | [facility] | | | and [place] | [...] Team Providers + +------+ + | Care Lining Sewer Name | Role | Phone | + +------+ + PCP | Unavailable | + +------+ + Encounter Details +--------+ + + + + | Date | Type | Department | Care Team | Description | +--------+ + + + + | 12/18/ | Hospital | [facility] | Conversion | Back pain, | | 2014 | Encounter | CONVERSION DEP [address] | Transaction, | unspecified location | | | | [address] | Provider Unknown | | | | | [place] | | | | | | [address] | (Fax) | | | | | | | [...] | + +--------+ + + + | MRI LUMBAR SPINE WO | Routin | 11/14/2014 | | Results for this | | CONTRAST | e | 2:55 PM | | procedure are in the | | | | PDT | | results section. | + +--------+ + + + documented in this encounter Results MRI Lumbar Spine wo Contrast (11/14/2014 2:55 PM PDT) + + | Specimen | + + | | + + + + + | Narrative | Performed At | + + + | This is a non-reportable procedure without a radiologist report and | | | is used for image storage only | | + + + + + | Procedure Note | + + | Victor M Alejo Conversion - 02/17/2019 9:00 AM PDT This is a non-reportable procedure | | without a radiologist report and isused for image storage only | + + documented in this encounter Visit Diagnoses + + | Diagnosis | + + | Back pain, unspecified location | + + documented in this encounter"
--- OUTSIDE RECORDS SUMMARY | ~2020-01-12 | XMS | Encounter Summary ---
Demographics + + + | Address | [address] | | | [place] [address] | + + + | Home Phone | | + + + | Preferred Language | Unknown | + + + | Marital Status | | + + + | Latter-Day Affiliation | Unknown | + + + | Race | Unknown | + + + | Ethnic Group | Unknown | + + + Author + + + | Author | [facility] | | | and [place] | + + + | Organization | [facility] | [...] Team Providers + +------+ + | Care Card Grinder Helper Name | Role | Phone | + +------+ + PCP | Unavailable | + +------+ + Encounter Details +--------+ + + + + | Date | Type | Department | Care Team | Description | +--------+ + + + + | 12/08/ | Hospital | [facility] | | | | 2001 | Encounter | MED CTR EMERGENCY | | | | | | CENTER [address] | | | | | | [place] | | | | | | [address] | | | | | | [phone] | | | +--------+ + + + [...]
--- OUTSIDE RECORDS SUMMARY | ~2020-01-12 | XMS | Encounter Summary ---
Demographics + + + | Address | [address] | | | [place] [address] | + + + | Home Phone [...] | Organization | [facility] | | | and [place] [...] Team Providers + +------+ + | Care Lacing String Cutter Name | Role | Phone | + +------+ + | Bethany Donato | PCP | | + +------+ + Reason for Visit +--------+--------+ + | Reason | Onset | Comments | | | Date | | +--------+--------+ + | Other | 07/01/ | Post op call | | | 2016 | | +--------+--------+ + Encounter Details +--------+ + + + + | Date | Type | Department | Care Team | Description | +--------+ + + + + | 07/01/ | Telephone | [facility] | Anjum Carter, | Other (Post op call) | | 2016 | | NEUROSURGERY [address] | DO [address] | | | | | [address] | [address] [place], [place] | | | | | [place], [place] | [address] | | | | | [address] | | | | | | [phone] | | | +--------+ + + + [...] this encounter Miscellaneous Notes Telephone Encounter - Maria Del Carmen Jaramillo RN - 07/03/2016 11:46 AM PSTProcedure: L2-3, L3-4, L4-5 Lateral Anterior Interbody Fusion Date of Surgery: 06/23/16 1. How are you feeling-if pain where (legs/surgical site)? Aching in low back and right leg 2. Weakness/Numbness (New onset)? No 3.Taking pain meds (Name/Dosage)? Hydrocodone 10/325mg 1-2 tabs every 4 hours 4.Loss of Bowel or Bladder (When/Chronic)? No Constipation? Yes, but passing gas and has 5.Ambulating (How often)? Ambulating at least every 45 mins SURGICAL ISSUES 1.Steri-strips/outer bandages have been removed. Sutton/sutures that need to be removed Y es. Operative note reviewed yes. 2.Appearance of the site? Clean and dry. Is there drainage from the site? no. 3.Do you have a fever? no. 4.Follow up appointments? 07/28/16 @ 1400 Staple/suture removal nurse visit? 07/08/16 @ 1300 5.What could we have done to make your visit better? Nothing 6. Has preoperative pain improved? Strong back pain is greatly improved elephone Encounter - Maria Del Carmen Jaramillo RN - 07/01/2016 9:23 AM PSTLeft voicemail for post op call return.Electro nically signed by Maria Del Carmen Jaramillo RN at 07/01/2016 9:23 AM PSTdocumented in this encounter Plan of Treatment Not on filedocumented as of this encounter Visit Diagnoses Not on filedocumented in this encounter"
--- OUTSIDE RECORDS SUMMARY | ~2020-01-12 | XMS | Encounter Summary ---
Demographics + + + | Address | [address] | | | [place] [address] | + + + | Home Phone | | + + + | Preferred Language | Unknown | + + + | Marital Status | | + + + | Temple Affiliation | Unknown | + + + | Race | Unknown | + + + | Ethnic Group | Unknown | + + + Author + + + | Author | [facility] | | | and [place] | + + + | Organization | [facility] | | | and [place] [...] Team Providers + +------+ + | Care Piecer Name | Role | Phone | + +------+ + PCP | Unavailable | + +------+ + Encounter Details +--------+ + + + + | Date | Type | Department | Care Team | Description | +--------+ + + + + | 01/19/ | Hospital | [facility] | Noman Jarvis, | | | 2001 | Encounter | MED CTR MP INTRA OP | [address] | | | | | [address] | [place] | | | | | [place] | [place] [address] | | | | | [address] | [phone] | | | | | [phone] | | | +--------+ + + + [...]
--- OUTSIDE RECORDS SUMMARY | ~2020-01-12 | XMS | Encounter Summary ---
Demographics + + + | Address | [address] | | | [place] [address] | + + + | Home Phone | | + + + | Preferred Language | Unknown | + + + | Marital Status | | + + + | Synagogue Affiliation | Unknown | + + + | Race | Unknown | + + + | Ethnic Group | Unknown | + + + Author + + + | Author | [facility] | | | and [place] | + + + | Organization | [facility] | | | and [place] [...] Providers + +------+ + | Care Health Communications Specialist Name | Role | Phone | + +------+ + | Bethany Donato | PCP | | + +------+ + Encounter Details +--------+ + + + + | Date | Type | Department | Care Team | Description | +--------+ + + + + | 12/05/ | Hospital | [facility] | Anjum Carter, | Acute midline back | | 2016 | Encounter | MED CTR XRAY [address] | DO [address] | pain, unspecified | | | | [place] | [place] [address] [place] | location | | | | [place] [address] | [address] | | | | | [phone] | | | +--------+ + + + [...] + + + | XR LUMBAR SPINE 4 + | Routin | 12/06/2015 | Acute midline back | Results for this | | VW | e | 7:45 AM | pain, unspecified | procedure are in the | | | | PDT | location | results section. | + +--------+ + + + documented in this encounter Results XR Lumbar Spine 4 + Vw (12/06/2015 7:45 AM PDT) + + | Specimen | + + | | + + + + + | Narrative | Performed At | + + + | FOUR VIEWS LUMBAR SPINE 12/06/2015 7:45 AM CLINICAL HISTORY: Back | [facility] | | pain COMPARISON: LUMBAR MRI AND RADIOGRAPHS NOVEMBER AND OCTOBER 2014 | [facility] | | FINDINGS: Five non [...] | + + + + + | [address] | [address] | [place] | [phone] | | [facility] | | [address] | | | - IMAGING | | | | + + + + + documented in this encounter Visit Diagnoses + + | Diagnosis | + + | Acute midline back pain, unspecified location | + + documented in this encounter"
--- OUTSIDE RECORDS SUMMARY | ~2020-01-12 | XMS | Encounter Summary ---
Demographics + + + | Address | [address] | | | [place] [address] | + + + | Home Phone | | + + + | Preferred Language | Unknown | + + + | Marital Status | | + + + | Synagogue Affiliation | Unknown | + + + | Race | Unknown | + + + | Ethnic Group | Unknown | + + + Author + + + | Author | [facility] | | | and [place] | + + + | Organization | [facility] | | | and [place] [...] Team Providers + +------+ + | Care Body Shop Manager Name | Role | Phone | [...] | | | | | | | [place] | | | | | | | [...] + + | 06/23/ | Hospital | [facility] | Anjum Carter, | | | 2016 | Encounter | MED CTR XRAY [address] | DO [address] | | | | | [place] | [address] [place] | | | | | [place] [address] | [id number] | | | | | [phone] | | | +--------+ + + + [...] | + +--------+ + + + | NAKIA DAWSON STATS NO | Routin | 06/23/2016 | | Results for this | | CHARGE | e | 4:49 PM | | procedure are in the | | | | PST | | results section. | + +--------+ + + + documented in this encounter Results NAKIA C-Arm Stats No Charge (06/23/2016 4:49 PM [...] | | | + +---------+ + + documented in this encounter Visit Diagnoses Not on filedocumented in this encounter"
--- OUTSIDE RECORDS SUMMARY | ~2020-01-12 | XMS | Encounter Summary ---
Demographics + + + | Address | [address] | | | [place] [address] | + + + | Home Phone [...] | Organization | [facility] | | | and [place] [...] Team Providers + +------+ + | Care Record Center Coordinator Name | Role | Phone | + +------+ + | Bethany Donato | PCP | | + +------+ + Reason for Referral Evaluate & Treat (Routine) + + + + + + + | Status | Reason | Specialty | Diagnoses / | Referred By | Referred To | | | | | Procedures | Contact | Contact | + + + + + + + | Canceled | Specialty | Physical | Diagnoses | [facility], | | | | Services | Therapy | Lumbar | Todd Sutherland, | | | | Required | | radiculopath | PA-C [address] | | | | | | y S/P | [address] | | | | | | lumbar | [address] | | | | | | fusion | [place], | | | | | | | [place] [address] | | | | | | | Phone: | | | | | | | [phone] | | | | | | | Fax: | | | | | | | [phone] | | + + + + + + + Evaluate & Treat (Routine) +--------+ + + + + + | Status | Reason | Specialty | Diagnoses / | Referred By | Referred To | | | | | Procedures | Contact | Contact | +--------+ + + + + + | Closed | Specialty | Physical | Diagnoses | [facility], | [facility] | | | Services | Therapy | Lumbar | Todd Sutherland, | [facility] | | | Required | | radiculopath | PA-C [address] | HOSPITAL | | | | | y S/P | [address] | [address] | | | | | lumbar | [address] | [address]VE | | | | | fusion | [place], | [place] | | | | | | [place] [address] | [address] | | | | | | Phone: | Phone: | | | | | | [phone] | [phone] | | | | | | Fax: | Fax: | | | | | | [phone] | [phone] | +--------+ + + + + + Reason for Visit + +--------+ + | Reason | Onset | Comments | | | Date | | + +--------+ + | Physical | 08/24/ | | | Medicine/rehab | 2016 | | | Appointment | | | + +--------+ + Encounter Details +--------+ + + + + | Date | Type | Department | Care Team | Description | +--------+ + + + + | 08/24/ | Telephone | [facility] [place] | Anjum Carter, | Physical | | 2016 | | NEUROSURGERY [address] | DO [address] | Medicine/rehab | | | | [address] | [address] [place], [place] | Appointment | | | | [place], [place] | [address] | | | | | [address] | | | | | | [phone] | | | +--------+ + + + [...] Encounter - Viktoriya Leal Cert MA - 08/27/2016 1:49 PM PSTMessage sent to HIM t o fax referral for PT VIKTORIYA LEAL elephone Encounte r - Viktoriya Leal Cert MA - 08/26/2016 1:27 PM PSTPatient would like to participate in for mal therapy if possible and would like to do this at [facility]. I am happy to order this. Reg christian PO lumbar PT? Thank you VIKTORIYA LEAL elephone Todd Reyna PA - 08/26/2016 11:56 AM PSTIf she is walking like she is supposed to and slowly advancing her home activities at home within the restrictions that I have given, most patients don't need formal physical therapy. I almost always discussed that with them after one last visit. However, if she would like to participate in formal physical therapy I'm happy to order this elephone Encounter - Viktoriya Leal Cert MA - 08/24/2016 3:03 PM PSTDerek, Please advise on wether or not patient should begin PT now or wait until her f/u with Dr. Amy mac. She is S/P L2-5 Fusion on 06/23/16. Her next visit is on 09/22/16. Thank you VIKTORIYA LEAL eleNash Null - 08/24/2016 2:29 PM PSTPatient called in to see if Dr Carter was going t o send her to PT before her office visit in september or will she be waiting until after? Please advise documented in this en counter Plan of Treatment + + +--------+ + + | Name | Type | Priori | Associated Diagnoses | Order Schedule | | | | ty | | | + + +--------+ + + | Ambulatory referral | Outpatient | Routin | Lumbar | Ordered: 08/26/2016 | | to Physical Therapy | Referral | e | radiculopathy S/P | | | | | | lumbar fusion | | + + +--------+ + + | Ambulatory referral | Outpatient | Routin | Lumbar | Ordered: 08/27/2016 | | to Physical Therapy | Referral | e | radiculopathy S/P | | | | | | lumbar fusion | | + + +--------+ + + documented as of this encounter Visit Diagnoses + + | Diagnosis | + + | Lumbar radiculopathy - Primary Thoracic or lumbosacral neuritis or radiculitis, | | unspecified | + + | S/P lumbar fusion Arthrodesis status | + + documented in this encounter"
--- OUTSIDE RECORDS SUMMARY | ~2020-01-12 | XMS | Encounter Summary ---
Demographics + + + | Address | [address] | | | [place] [address] | + + + | Home Phone | | + + + | Preferred Language | Unknown | + + + | Marital Status | | + + + | Yazidism Affiliation | Unknown | + + + | Race | Unknown | + + + | Ethnic Group | Unknown | + + + Author + + + | Author | [facility] | | | and [place] | + + + | Organization | [facility] [...] Team Providers + +------+ + | Care Instrument Person Name | Role | Phone | + +------+ + | Bethany Donato | PCP | | + +------+ + Reason for Visit + + + | Reason | Comments | + + + | Staple Removal | | + + + Encounter Details +--------+---------+ + + + | Date | Type | Department | Care Team | Description | +--------+---------+ + + + | 07/08/ | Office | [facility] | Anjum Carter, | Encounter for staple | | 2017 | Visit | NEUROSURGERY [address] | DO [address] | removal (Primary | | | | [address] | [address] [place], [place] | Dx) | | | | [place], [place] | [address] | | | | | [address] | | | | | | [phone] | | | +--------+---------+ + + + [...] + + + | Blood Pressure | 137/83 | 07/08/2016 1:46 PM | | | | | PST | | + + + + + | Pulse | 83 | 07/08/2016 1:46 PM | | | | | PST [...] + + + + | Weight | 53.8 kg (118 lb 9.6 | 07/08/2016 1:46 PM | | | | oz) | PST | | + + + + + | Height | 160 cm (5' 3") | 07/08/2016 1:46 PM | | | | | PST | | + + + + + | Body Mass Index | 21.01 | 07/08/2016 1:46 PM | | | | | PST [...] documented as of this encounter Progress Notes Edna Franco Cert MA - 07/09/2016 10:12 AM PSTStaples removed per protocol. Incision is clean, dry and intact. documented in this encounter Plan of Treatment Not on filedocumented as of this encounter Visit Diagnoses + + | Diagnosis | + + | Encounter for staple removal - Primary Encounter for removal of sutures | + + documented in this encounter
--- OUTSIDE RECORDS SUMMARY | ~2020-01-12 | XMS | Encounter Summary ---
Demographics + + + | Address | [address] | | | [place] [address] | + + + | Home Phone | | + + + | Preferred Language | Unknown | + + + | Marital Status | | + + + | Mormonism Affiliation | Unknown | + + + | Race | Unknown | + + + | Ethnic Group | Unknown | + + + Author + + + | Author | [facility] | | | and [place] | + + + | Organization | [facility] | | | and [place] [...] Providers + +------+ + | Care Manager Review Name | Role | Phone | + +------+ + PCP | Unavailable | + +------+ + Encounter Details +--------+ + + + + | Date | Type | Department | Care Team | Description | +--------+ + + + + | 12/21/ | Hospital | [facility] | | | | 2001 | Encounter | [facility] | | | | | | CENTER [address] | | | | | | [place] | | | | | | [address] | | | | | | [phone] | | | +--------+ + + + [...]
[~2020-01-12 06:51] MED LIST: IBUPROFEN600 MG PO; MEDROL4 MG PO; NAPROSYN375 MG PO; NAPROXEN500 MG PO; NEURONTIN100 MG PO; NORCO 5-325 TA1 EACH PO; PROMETHAZINE-COD5 ML PO
== END 2020-01-12 08:11 | disposition home or self-care (01) ==
LOC: ED 06:51
DX: M79.672 Pain in left foot (principal); F17.200 Nicotine dependence, unspecified, uncomplicated
CPT/HCPCS: 73630; 99283-25